=== PATIENT | male | born 1955 ===

== ENCOUNTER 2018-05-23 20:10 | Inpatient (IN) | payer MEDICARE, OTHER ==
[2018-05-23 20:10] VITALS: BMI 23.4
[2018-05-23 20:55] LABS: BASO % 0.8 % (0.0-2.0); EOS # 0.3 K/uL (0.0-0.7); HEMOGLOBIN 11.9 g/dL (12.0-18.0); LYMPH # 1.1 K/uL (1.0-4.3); LYMPH % 18.3 % (20.0-40.0); MEAN CELL VOLUME 87.1 fl (80.0-94.0); MEAN CORPUSCULAR HEMOGLOBIN 27.9 pg (27.0-31.0); MEAN CORPUSCULAR HGB CONC 32.1 g/dL (33.0-37.0); MEAN PLATELET VOLUME 8.3 fl (7.2-11.7); MONO # 0.5 K/uL (0.0-0.8); MONO % 8.2 % (0.0-10.0); NEUT # 4.3 K/uL (1.8-7.0); NEUT % 68.7 % (50.0-75.0); RBC 4.27 Mil/uL (4.40-5.90); RED CELL DISTRIBUTION WIDTH 17.3 % (11.5-14.5); WHITE BLOOD COUNT 6.3 K/uL (4.8-10.8)
[2018-05-23 20:59] LABS: ALB/GLOB RATIO 1.2 (1.0-2.1); ALBUMIN 4.5 g/dL (3.5-5.0)
[2018-05-23] MEDS ORDERED: levETIRAcetam 1,000 MG in Sodium Chloride 0.9% 100 ML IVPB ONE (20:59)
[2018-05-23 21:01] LABS: INR 1.2 (0.9-1.2); PARTIAL THROMBOPLASTIN TIME 28.4 Seconds (25.6-37.1); PROTHROMBIN TIME 13.5 Seconds (9.8-13.1)
--- NOTE | 2018-05-23 21:02 | ED PDOC ---
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 Baseline is semi-conversant, mostly bedbound, hx prior CVA, ESRD last received HD yesterday. History limited as patient currently unresponsive. Code stroke activated given history from daughter. NIHSS Stroke Scale - Date/Time Evaluation Performed Date Performed: 05/23/18 Time Performed: 20:20 When Was NIHSS Performed: Baseline - How Severe is the Stroke Level of Consciousness: 3=Unresponsive LOC to Questions: 2=Neither correct LOC to commands: 2=Neither correct Best Gaze: 1=Partial gaze palsy Visual: 3=Bilateral Facial: 2=Partial (lower face paralysis) Motor Arm - Left: 4=No movement Motor Arm - Right: 4=No movement Motor Leg - Left: 4=No movement Motor Leg - Right: 4=No movement Limb Ataxia: 2=Present both Sensory: 2=Severe to total loss Best Language: 3=Mute Dysarthia: 2=Severe, near unintelligible or worse Extinction & Inattention (Neglect): 2=Profound neglect(does not recognize own hand or orients to one side) Score: 40 NIHSS Stroke Scale 2 - Date/Time Evaluation Performed Date Performed: 05/23/18 Time Performed: 21:00 When Was NIHSS Performed: Re-evaluation - How Severe is the Stroke Level of Consciousness: 0=Alert LOC to Questions: 0=Both comments correct LOC to commands: 1=Obeys one correctly Best Gaze: 1=Partial gaze palsy Visual: 1=Partial hemianopia Facial: 2=Partial (lower face paralysis) Motor Arm - Left: 1=Drift noted before 10 sec Motor Arm - Right: 1=Drift noted before 10 sec Motor Leg - Left: 1=Drift before 5 sec Motor Leg - Right: 1=Drift before 5 sec Limb Ataxia: 2=Present both Sensory: 1=Mild to moderate loss Best Language: 1=Mild to moderate aphasia Dysarthia: 1=Mild to moderate slurring Extinction & Inattention (Neglect): 1=Partial neglect (mild christi-attention) Score: 15 rTPA Inclusion/Exclusion - Refusal of Treatment Patient Refused Treatment: No - Inclusion Criteria for Altepase Patient is 18 years or Older: Yes The Clinical Diagnosis of Ischemic Stroke That is Causing a Potentially Disabling Neurological Deficit: Yes Time of Onset is Well Established to be Less Than 270 Minute Before Treatment Would Begin: Yes Risk/Benefit Discussed With Patient/Family Member Present: No - Warning to TPA With Conditions Condition: Rapid Improvement Past Medical History Reviewed: Historical Data, Nursing Documentation, Vital Signs Vital Signs: Last Vital Signs Temp 98 F 05/23/18 20:51 Pulse 102 H 05/23/18 20:51 Resp 19 05/23/18 20:51 BP 153/91 H 05/23/18 20:51 Pulse Ox 97 05/23/18 20:51 - Medical History PMH: Atrial Fibrillation, Cardia Arrhythmia, CVA, Diabetes, Fractures, HTN, Hypercholesterolemia, End Stage Renal Disease (Dialysis TUES,THURS,SAT), Chronic Kidney Disease - Surgical History Surgical History: Hernia Repair, Pacemaker - Family History Family History: States: Unknown Family Hx - Living Arrangements Living Arrangements: With Family - Social History Current smoker - smoking cessation education provided: No - Immunization History Hx Tetanus Toxoid Vaccination: No Hx Influenza Vaccination: Yes Hx Pneumococcal Vaccination: Yes - Home Medications Home Medications: Ambulatory Orders Medication Instructions Recorded Clopidogrel [Plavix] 75 mg DAILY 08/04/13 Hydroxyzine HCl 1 tab PO DAILY 03/05/17 Insulin Detemir [Levemir] 6 unit SC QAM 03/05/17 Lubiprostone [Amitiza] 1 cap PO BID 03/05/17 Metoprolol Tartrate [Lopressor] 1 tab PO BID 03/05/17 hydrALAZINE [Apresoline] 10 mg PO BID 03/05/17 Cyclobenzaprine [Flexeril] 10 mg PO DAILY 02/04/18 Insulin Detemir [Levemir] 6 unit SC QPM 02/04/18 Sevelamer Carbonate [Renvela] 800 mg PO TID 02/04/18 amLODIPine [Norvasc] 10 mg PO DAILY 02/04/18 - Allergies Allergies/Adverse Reactions: Allergies Allergy/AdvReac Type Severity Reaction Status Date / Time No Known Allergies Allergy Verified 02/04/18 03:44 Review of Systems Review Of Systems: ROS cannot be obtained secondary to pt's inabilty to answer questions. Physical Exam - Reviewed Nursing Documentation Reviewed: Yes Vital Signs Reviewed: Yes - Physical Exam Appears: Positive for: Uncomfortable (unresponsive but maintaining airway) Head Exam: Positive for: ATRAUMATIC, NORMAL INSPECTION, NORMOCEPHALIC Skin: Positive for: Normal Color, Warm, DRY Eye Exam: Positive for: EOMI, Normal appearance, PERRL ENT: Positive for: Normal ENT Inspection Neck: Positive for: Normal, Painless ROM Cardiovascular/Chest: Positive for: Regular Rate, Rhythm Respiratory: Positive for: Normal Breath Sounds. Negative for: Wheezing, Respiratory Distress Pulses-Radial (L): 3+/4+ Pulses-Radial (R): 3+/4+ Gastrointestinal/Abdominal: Positive for: Soft. Negative for: Tenderness Back: Positive for: Normal Inspection Extremity: Positive for: Normal ROM. Negative for: Deformity, Swelling Neurologic/Psych: Positive for: Other (initially unresponsive to pain b/l but with b/l hypertonicity and ?faint facial twitching) - Laboratory Results Result Diagrams: 05/25/18 04:30 05/25/18 04:30 - ECG ECG: Positive for: Interpreted By Nm ECG Rhythm: Positive for: Nonspecific Changes Interpretation Of ECG: paced rhythm O2 Sat by Pulse Oximetry: 97 Pulse Ox Interpretation: Normal - Radiology X-Ray: Interpreted by Nm X-Ray Interpretation: Other (b/l increased markings) Medical Decision Making Medical Decision Making: code stroke activated CT report negative for bleed Dr Marie examined via teleneurology, agrees possible seizure event on arrival CTA head/neck planned, rectal ASA, load keppra Endorse Dr Majano pending CTA and dispo labs unable to get MR given pacemaker Disposition - Clinical Impression Clinical Impression: Altered mental status - Patient ED Disposition Is Patient to be Admitted: Transfer of Care Counseled Patient/Family Regarding: Studies Performed, Diagnosis, Need For Followup - Disposition Disposition: Transfer of Care Disposition Time: 21:10 Condition: SERIOUS Patient Signed Over To: Brian Majano
[2018-05-23 21:13] LABS: TROPONIN I 0.064 ng/mL (0.00-0.120)
[2018-05-23] MEDS ORDERED: Iodixanol 320 MG/ML 100 ML BOTTLE IV ONE (21:19)
[2018-05-23] MEDS ORDERED: Sodium Chloride 0.9% 50 ML IV ONE (21:19)
[2018-05-23] MEDS: Sodium Chloride 0.9% 1,000 ML IV SCH (22:10)
--- NOTE | 2018-05-23 22:29 | CP.PCM.HP ---
History of Present Illness - History of Present Illness History of Present Illness: CC: Visual/auditory hallucinations, unresponsive HPI: This is a 62 y/o male with MHx significant for A fib, prior CVA, DM2, HTN, HLD, and ESRD on // who is brought in by his daughter who reports he has been having visual and auditory hallucinations x several days, and earlier tonight, had an episode of unresponsiveness. He was brought in to the ER and a code stroke was called, but he began to recover to baseline during the assessment. Initial NIHSS was ~15. He was assessed by tele neuro. Per daughter, patient is bedbound. Baseline mental status is some ability to converse. Patient has not had any medications changes. No recent infection/f/c/n/v. Patient has not been sleeping well however, per daughter Last HD was 05/22. ROS: 14 systems reviewed, negative other than HPI MHx: fib, prior CVA, DM2, HTN, HLD, and ESRD on // SHx: Hernia repair, pacemaker, Allergies: NKDA Medications: Per med rec Family Hx: No relevant findings Social Hx: Lives with family, no tobacco, no EtOH Surrogate: Anat, daughter, info in chart. Present on Admission - Present on Admission Any Indicators Present on Admission: No Past Patient History - Infectious Disease Hx of Infectious Diseases: None - Tetanus Immunizations Tetanus Immunization: Unknown - Past Medical History & Family History Past Medical History?: Yes - Past Social History Smoking Status: Never Smoked - CARDIAC Hx Atrial Fibrillation: Yes Hx Cardia Arrhythmia: Yes Hx Hypercholesterolemia: Yes Hx Hypertension: Yes Hx Pacemaker: Yes - PULMONARY Hx Respiratory Disorders: No - NEUROLOGICAL Hx Neurological Disorder: Yes HX Cerebrovascular Accident: Yes - HEENT Hx HEENT Problems: Yes Hx Cataracts: Yes - RENAL Hx Chronic Kidney Disease: Yes - ENDOCRINE/METABOLIC Hx Endocrine Disorders: Yes Hx Diabetes Mellitus Type 2: Yes - HEMATOLOGICAL/ONCOLOGICAL Hx Blood Disorders: Yes Hx Blood Transfusions: Yes - INTEGUMENTARY Hx Dermatological Problems: No - MUSCULOSKELETAL/RHEUMATOLOGICAL Hx Fractures: Yes - GASTROINTESTINAL Hx Gastrointestinal Disorders: Yes Hx Constipation: Yes Other/Comment: history of PEG tube; no longer in - GENITOURINARY/GYNECOLOGICAL Hx Genitourinary Disorders: Yes Other/Comment: oliguria d/t dialysis - PSYCHIATRIC Hx Psychophysiologic Disorder: No Hx Substance Use: No - SURGICAL HISTORY Hx Surgeries: Yes Hx Herniorrhaphy: Yes (bilateral inguina hernia) Hx Orthopedic Surgery: Yes (right humerus fx post fall) Other/Comment: hx of pacemaker and PEG - ANESTHESIA Hx Anesthesia: Yes Hx Anesthesia Reactions: No Hx Malignant Hyperthermia: No Meds Allergies/Adverse Reactions: Allergies Allergy/AdvReac Type Severity Reaction Status Date / Time No Known Allergies Allergy Verified 02/04/18 03:44 Physical Exam - Constitutional Appears: No Acute Distress - Head Exam Head Exam: ATRAUMATIC, NORMOCEPHALIC - Eye Exam Eye Exam: EOMI, PERRL - ENT Exam ENT Exam: Mucous Membranes Moist - Neck Exam Neck exam: Positive for: Full Rom - Respiratory Exam Respiratory Exam: Clear to Auscultation Bilateral, NORMAL BREATHING PATTERN - Cardiovascular Exam Cardiovascular Exam: REGULAR RHYTHM, +S1, +S2 - GI/Abdominal Exam GI & Abdominal Exam: Normal Bowel Sounds, Soft - Extremities Exam Extremities exam: Positive for: full ROM, normal inspection - Neurological Exam Neurological exam: Alert, CN II-XII Intact, Oriented x3 - Psychiatric Exam Psychiatric exam: Normal Affect, Normal Mood Results - Vital Signs Recent Vital Signs: Last Vital Signs Temp 98 F 05/23/18 20:51 Pulse 102 H 05/23/18 20:51 Resp 19 05/23/18 20:51 BP 153/91 H 05/23/18 20:51 Pulse Ox 97 05/23/18 21:25 - Labs Result Diagrams: 05/23/18 20:41 05/23/18 20:41 Labs: Laboratory Results - last 24 hr 05/23/18 05/23/18 05/23/18 20:41 20:41 20:41 WBC 6.3 RBC 4.27 L Hgb 11.9 L Hct 37.2 MCV 87.1 MCH 27.9 MCHC 32.1 L RDW 17.3 H Plt Count 291 MPV 8.3 Neut % (Auto) 68.7 Lymph % (Auto) 18.3 L [place] % (Auto) 8.2 Eos % (Auto) 4.0 Baso % (Auto) 0.8 Neut # (Auto) 4.3 Lymph # (Auto) 1.1 [place] # (Auto) 0.5 Eos # (Auto) 0.3 Baso # (Auto) 0.0 PT 13.5 H INR 1.2 APTT 28.4 Sodium 144 Potassium 5.3 H Chloride 95 L Carbon Dioxide 33 H Anion Gap 21 H BUN 31 H Creatinine 5.8 H Est GFR ( Amer) 12 Est GFR (Non-Af Amer) 10 Random Glucose 208 H Calcium 10.0 Total Bilirubin 0.8 AST 23 ALT 16 L Alkaline Phosphatase 118 Troponin I 0.0640 Total Protein 8.1 Albumin 4.5 Globulin 3.6 Albumin/Globulin Ratio 1.2 Triglycerides 169 H Cholesterol 147 LDL Cholesterol Direct 57 HDL Cholesterol 30 Blood Type Antibody Screen BBK History Checked 05/23/18 20:42 WBC RBC Hgb Hct MCV MCH MCHC RDW Plt Count MPV Neut % (Auto) Lymph % (Auto) [place] % (Auto) Eos % (Auto) Baso % (Auto) Neut # (Auto) Lymph # (Auto) [place] # (Auto) Eos # (Auto) Baso # (Auto) PT INR APTT Sodium Potassium Chloride Carbon Dioxide Anion Gap BUN Creatinine Est GFR ( Amer) Est GFR (Non-Af Amer) Random Glucose Calcium Total Bilirubin AST ALT Alkaline Phosphatase Troponin I Total Protein Albumin Globulin Albumin/Globulin Ratio Triglycerides Cholesterol LDL Cholesterol Direct HDL Cholesterol Blood Type A POSITIVE Antibody Screen Negative BBK History Checked Patient has bt - EKG Data EKG Interpreted by: Myself - EKG Data EKG comments: ?paced rhythm, wide QRS - Imaging and Cardiology CT scan - head Status: Image reviewed by me (No acute findings) Assessment & Plan (1) TIA (transient ischemic attack) Assessment and Plan: 62 y/o male with a fib, prior CVA, DM2, HTN, HLD, and ESRD on // who comes in with hallucinations and mental status changes. 1) MS change -- r/o TIA/CVA vs seizure vs other cause -Telemetry -Serial trops -Echo -Carotid dopplers -EEG -MRI only if possible, family states patient has a pacemaker -ASA 300 MS for tonight; ASA PO from tmrw along with Plavix which he is on -Keppra 1000 loading dose today, then 500 mg PO BID from tmrw as long as taking PO -NPO, IVF -Permissive HTN -Neuro consult (Cynthia) -PT/OT consult 2) HTN -Will only keep on the metoprolol for now to control rate, will hold other BP meds overnight 3) DM2 -NPO, so hold LA insulin o/n -SSI and accuchecks 4) A fib -Metoprolol as above 5) ESRD on HD -BMP in AM -Renal consult if he stays to Thursday 6) DVT PPx -SQ heparin Status: Acute (2) Seizure Status: Acute (3) DM2 (diabetes mellitus, type 2) Status: Acute (4) HTN (hypertension) Status: Acute (5) A-fib Status: Acute (6) ESRD (end stage renal disease) on dialysis Status: Acute (7) DVT prophylaxis Status: Acute (8) Altered mental status Status: Acute
--- NOTE | 2018-05-23 22:40 | CP.PCM.CON ---
History of Present Illness - History of Present Illness History of Present Illness: Tele-Stroke Consultation Note: This is a tele-medicine visit being conducted through bidirectional audio/video conference with [employer] Video In: 8:55 PM Video Out: 9:02 PM Mr. Joe is a 62-year-old man who was brought in by family to the ED after having visual and auditory hallucinations for several days, and tonight he became unresponsive suddenly with about 30 mins prior to arrival. At first, he was not responsive to painful stimulous and was rigid, he then became more responsive and was alert and following commands. At baseline he is semi- conversant, mostly bedbound, due to prior ischemic stroke. He has a past medical history of CVA, ESRD (last received HD yesterday). History was provided by family, but was limited. CT of the head showed bilateral chronic basal ganglia infarcts. CTA was consistent with moderate to sever left ICA and vertebral artery stenosis. Shortly after he had imaging performed, the patient was more responsive. Moving all extremities and following simple commands. There was some concern for seizure activity. I spoke with Dr. Bernardo and we discussed starting Keppra 1000 mg IV loading dose. I also recommended permissive HTN and [place] aspirin. Review of Systems - Review of Systems All systems: reviewed and no additional remarkable complaints except Past Patient History - Infectious Disease Hx of Infectious Diseases: None - Tetanus Immunizations Tetanus Immunization: Unknown - Past Medical History & Family History Past Medical History?: Yes - Past Social History Smoking Status: Never Smoked - CARDIAC Hx Atrial Fibrillation: Yes Hx Cardia Arrhythmia: Yes Hx Hypercholesterolemia: Yes Hx Hypertension: Yes Hx Pacemaker: Yes - PULMONARY Hx Respiratory Disorders: No - NEUROLOGICAL Hx Neurological Disorder: Yes HX Cerebrovascular Accident: Yes - HEENT Hx HEENT Problems: Yes Hx Cataracts: Yes - RENAL Hx Chronic Kidney Disease: Yes - ENDOCRINE/METABOLIC Hx Endocrine Disorders: Yes Hx Diabetes Mellitus Type 2: Yes - HEMATOLOGICAL/ONCOLOGICAL Hx Blood Disorders: Yes Hx Blood Transfusions: Yes - INTEGUMENTARY Hx Dermatological Problems: No - MUSCULOSKELETAL/RHEUMATOLOGICAL Hx Fractures: Yes - GASTROINTESTINAL Hx Gastrointestinal Disorders: Yes Hx Constipation: Yes Other/Comment: history of PEG tube; no longer in - GENITOURINARY/GYNECOLOGICAL Hx Genitourinary Disorders: Yes Other/Comment: oliguria d/t dialysis - PSYCHIATRIC Hx Psychophysiologic Disorder: No Hx Substance Use: No - SURGICAL HISTORY Hx Surgeries: Yes Hx Herniorrhaphy: Yes (bilateral inguina hernia) Hx Orthopedic Surgery: Yes (right humerus fx post fall) Other/Comment: hx of pacemaker and PEG - ANESTHESIA Hx Anesthesia: Yes Hx Anesthesia Reactions: No Hx Malignant Hyperthermia: No Meds Allergies/Adverse Reactions: Allergies Allergy/AdvReac Type Severity Reaction Status Date / Time No Known Allergies Allergy Verified 02/04/18 03:44 - Medications Medications: Current Medications Sodium Chloride (Sodium Chloride 0.9%) 1,000 mls @ 100 mls/hr IV .Q10H AMARJIT Last Admin: 05/23/18 22:10 Dose: 100 mls/hr Physical Exam - Neurological Exam Additional comments: Alert, awake, follows simple commands, slurred speech. Moves all extremities with weakness that is diffuse with about 3-4/5 strength. Reflexes not assessed. Sensation appears intact. Gait not assessed. NIHSS= 4 for dysarthria , pronator drift on the right side. Results - Vital Signs Recent Vital Signs: Last Vital Signs Temp 98 F 05/23/18 20:51 Pulse 102 H 05/23/18 20:51 Resp 19 05/23/18 20:51 BP 153/91 H 05/23/18 20:51 Pulse Ox 97 05/23/18 21:25 - Labs Result Diagrams: 05/23/18 20:41 05/23/18 20:41 Labs: Laboratory Results - last 24 hr 05/23/18 05/23/18 05/23/18 20:41 20:41 20:41 WBC 6.3 RBC 4.27 L Hgb 11.9 L Hct 37.2 MCV 87.1 MCH 27.9 MCHC 32.1 L RDW 17.3 H Plt Count 291 MPV 8.3 Neut % (Auto) 68.7 Lymph % (Auto) 18.3 L [place] % (Auto) 8.2 Eos % (Auto) 4.0 Baso % (Auto) 0.8 Neut # (Auto) 4.3 Lymph # (Auto) 1.1 [place] # (Auto) 0.5 Eos # (Auto) 0.3 Baso # (Auto) 0.0 PT 13.5 H INR 1.2 APTT 28.4 Sodium 144 Potassium 5.3 H Chloride 95 L Carbon Dioxide 33 H Anion Gap 21 H BUN 31 H Creatinine 5.8 H Est GFR ( Amer) 12 Est GFR (Non-Af Amer) 10 Random Glucose 208 H Calcium 10.0 Total Bilirubin 0.8 AST 23 ALT 16 L Alkaline Phosphatase 118 Troponin I 0.0640 Total Protein 8.1 Albumin 4.5 Globulin 3.6 Albumin/Globulin Ratio 1.2 Triglycerides 169 H Cholesterol 147 LDL Cholesterol Direct 57 HDL Cholesterol 30 Blood Type Antibody Screen BBK History Checked 05/23/18 20:42 WBC RBC Hgb Hct MCV MCH MCHC RDW Plt Count MPV Neut % (Auto) Lymph % (Auto) [place] % (Auto) Eos % (Auto) Baso % (Auto) Neut # (Auto) Lymph # (Auto) [place] # (Auto) Eos # (Auto) Baso # (Auto) PT INR APTT Sodium Potassium Chloride Carbon Dioxide Anion Gap BUN Creatinine Est GFR ( Amer) Est GFR (Non-Af Amer) Random Glucose Calcium Total Bilirubin AST ALT Alkaline Phosphatase Troponin I Total Protein Albumin Globulin Albumin/Globulin Ratio Triglycerides Cholesterol LDL Cholesterol Direct HDL Cholesterol Blood Type A POSITIVE Antibody Screen Negative BBK History Checked Patient has bt Assessment & Plan (1) Altered mental status Assessment and Plan: Likely due to tonic/generalized seizure and possible global ischemia. I recommend the followin. Telemetry 2. MRI brain without contrast 3. Carotid doppler ultrasound bilaterally 4. Echocardiogram 5. EEG for 1 hour 6. Aspirin 300 mg [place] 7. Fluids with NS at 100 mL/hr 8. PT/OT eval 9. DVT Px 10. Case management consult 11. Keppra 500 mg BID after 1000 mg loading dose 12. Permissive HTN: only treat BP higher than 220/110 mm Hg for the next 24-36 hours Thank you. Neurology will follow. Status: Acute
[2018-05-23] MEDS ORDERED: Sodium Chloride 0.9% 1,000 ML IV SCH (23:30)
--- NOTE | 2018-05-24 00:36 | ED PDOC ---
- Laboratory Results Result Diagrams: 05/23/18 20:41 05/23/18 20:41 - ECG O2 Sat by Pulse Oximetry: 96 (RA) Pulse Ox Interpretation: Normal Medical Decision Making Medical Decision Making: Time: 2099 -- Patient endorsed to me by Dr. Bernardo, pending CTA head and neck. Time: 2209 CTA HEAD/NECK RESULTS FINDINGS: Right internal carotid artery: Calcifications right internal carotid artery at the cavernous sinus with approximately 40-50% stenosis. No aneurysm. Right anterior cerebral artery: Intact. No occlusion or significant stenosis. No aneurysm. Right middle cerebral artery: Intact. No occlusion or significant stenosis. No aneurysm. Right posterior cerebral artery: Intact. No occlusion or significant stenosis. No aneurysm. Right vertebral artery: Unremarkable as visualized. Left internal carotid artery: Calcifications causing approximately 75-80% stenosis left internal carotid artery supraclinoid segment. No aneurysm. Left anterior cerebral artery: Intact. No occlusion or significant stenosis. No aneurysm. Left middle cerebral artery: Intact. No occlusion or significant stenosis. No aneurysm. Left posterior cerebral artery: Intact. No occlusion or significant stenosis. No aneurysm. Left vertebral artery: Heavy calcifications left vertebral artery causing approximately 70-80% stenosis. Basilar artery: Intact. No occlusion or significant stenosis. No aneurysm. IMPRESSION: 1. Calcifications causing approximately 75-80% stenosis left internal carotid artery supraclinoid segment. 2. Heavy focal segmental calcification intracranial left vertebral artery causing approximately 70-80% stenosis. 3. No stenosis or aneurysm in the [place]. Basilar artery intact. EXAM: CT Angiography Neck With Intravenous Contrast CLINICAL HISTORY: 62 years old, male; Signs and symptoms; Other: AMS TECHNIQUE: Axial computed tomographic angiography images of the neck with intravenous contrast using CT angiography protocol. All CT scans at this facility use at least one of these dose optimization techniques: automated exposure control; mA and/or kV adjustment per patient size (includes targeted exams where dose is matched to clinical indication); or iterative reconstruction. MIP reconstructed images were created and reviewed. Coronal and sagittal reformatted images were created and reviewed. COMPARISON: CT - HEAD W/O (CODE STROKE) 2018-05-23 20:26 FINDINGS: VASCULATURE: Right common carotid artery: Intact. No significant stenosis. No dissection or occlusion. Right internal carotid artery: Calcifications at the origin and proximal right internal carotid artery without significant stenosis. No dissection or occlusion. Right external carotid artery: Origin and the opacified proximal portion appear intact. No occlusion. Right vertebral artery: Small calcification at the origin of the right vertebral artery without significant stenosis. No dissection or occlusion. Left common carotid artery: Intact. No significant stenosis. No dissection or occlusion. Left internal carotid artery: Intact. Extracranial segment is patent with no significant stenosis. No dissection or occlusion. Left external carotid artery: Origin and the opacified proximal portion appear intact. No occlusion. Left vertebral artery: Intact. No significant stenosis. No dissection or occlusion. Other vasculature: Subclavian vein stent patent. NECK: Bones/joints: No acute fracture. No dislocation. Soft tissues: No radiopaque foreign body. CAROTID STENOSIS REFERENCE USING NASCET CRITERIA: % ICA stenosis = (1 - narrowest ICA diameter/diameter of distal cervical ICA) x 100. Mild - <50% stenosis. Moderate - 50-69% stenosis. Severe - 70-94% stenosis. Near occlusion - 95-99% stenosis. Occluded - 100% stenosis. IMPRESSION: No significant stenosis bilateral neck carotid arteries. Thank you for allowing us to participate in the care of your patient. Dictated and Authenticated by: Og Godwin MD 05/23/2018 10:10 PM Eastern Time ([place] & [place]) CAse was discussed with Dr. Marie and Dr. Jesus. Patient is more alert, more awake. Scribe Attestation: Documented by Pascual Galvin acting as a scribe for Dr. Brian Majano MD. Provider Scribe Attestation: All medical record entries made by the Scribe were at my direction and personally dictated by me. I have reviewed the chart and agree that the record accurately reflects my personal performance of the history, physical exam, medical decision making, and the department course for this patient. I have also personally directed, reviewed, and agree with the discharge instructions and disposition. Disposition - Clinical Impression Clinical Impression: Altered mental status - POA Present On Arrival: None - Disposition Disposition: Admitted as In-Patient Disposition Time: 21:59 Condition: SERIOUS
[2018-05-24] MEDS: Insulin Lispro (humaLOG) 100 Units/ml Inj SC SCH ×5 (01:29→22:31)
[2018-05-24 05:37] LABS: MEAN CELL VOLUME 87.4 fl (80.0-94.0); RBC 3.91 Mil/uL (4.40-5.90); RED CELL DISTRIBUTION WIDTH 17.1 % (11.5-14.5); WHITE BLOOD COUNT 5.1 K/uL (4.8-10.8)
[2018-05-24 05:49] LABS: CALCIUM 9.4 mg/dL (8.4-10.2)
--- NOTE | 2018-05-24 08:05 | RAD ---
Date of service: 05/23/2018 HISTORY: Code Stroke COMPARISON: No prior available. FINDINGS: LUNGS: Inspiratory volume appears low. Limited linear atelectasis in the right base. No alveolitis bilaterally. PLEURA: No significant pleural effusion identified, no pneumothorax apparent. CARDIOVASCULAR: Bipolar permanent cardiac pacemaker identified placed with the generator the left pectoralis region and 2 leads identified extending into the region of the heart. Cardiac size is magnified technically cardiomegaly likely now present. No pulmonary vascular congestion pattern. Wall stent is seen at the left subclavian region. OSSEOUS STRUCTURES: No significant abnormalities. VISUALIZED UPPER ABDOMEN: Normal. OTHER FINDINGS: None. IMPRESSION: Low inspiratory volume. Linear atelectasis right base. No definite infiltrate bilaterally. Permanent cardiac pain pacemaker identified in situ. No pulmonary vascular congestion.
--- NOTE | 2018-05-24 11:23 | CT ---
Date of service: 05/23/2018 PROCEDURE: CT HEAD WITHOUT CONTRAST. HISTORY: code stroke COMPARISON: None available. TECHNIQUE: Axial computed tomography images were obtained through the head/brain without intravenous contrast. Radiation dose: Total exam DLP = 962.06 mGy-cm. This CT exam was performed using one or more of the following dose reduction techniques: Automated exposure control, adjustment of the mA and/or kV according to patient size, and/or use of iterative reconstruction technique. FINDINGS: HEMORRHAGE: No intracranial hemorrhage. BRAIN: The mcneal-white matter differentiation is well preserved. There is no mass effect or definitive edema pattern appreciated including the cortex. There is proportional expansion of the ventriculosulcal and cisternal spaces however in a pattern most compatible with diffuse cerebral atrophy. In addition, is difficult to differentiate between small bilateral basal ganglia dilated perivascular spaces versus chronic lacunes. No suspicious extra-axial fluid collection is identified in the midline brain anatomy appears grossly nonfocal as imaged. VENTRICLES: Unremarkable. No hydrocephalus. CALVARIUM: Unremarkable. PARANASAL SINUSES: Unremarkable as visualized. No significant inflammatory changes. MASTOID AIR CELLS: Unremarkable as visualized. No inflammatory changes. OTHER FINDINGS: None. IMPRESSION: No definite acute intracranial findings by standard CT criteria. Age related neuro degenerative findings appear age-appropriate and bilateral dilated perivascular spaces or chronic lacunes are seen in the bilateral basal ganglia. Concordant preliminary report from [facility], 05/23/2018.
--- NOTE | 2018-05-24 11:54 | CP.PCM.PN ---
Subjective - Date & Time of Evaluation Date of Evaluation: 05/24/18 Time of Evaluation: 11:52 - Subjective Subjective: Mr. Joe was seen and examined at the bedside. He is very sleepy, responsive to tactile stimuli, moves all extremities. He was given ativan prior to few diagnostic test this am due to his restlessness. He was able to follow two simple commands such as opening his mouth and raising his extremities. There was no untoward events overnight. Objective - Vital Signs/Intake and Output Vital Signs (last 24 hours): Temp Pulse Resp BP Pulse Ox 98.6 F 60 20 129/61 96 05/24/18 08:40 05/24/18 08:40 05/24/18 08:40 05/24/18 08:40 05/24/18 08:40 - Medications Medications: Current Medications Acetaminophen (Tylenol 650 Mg Supp) 650 mg NC Q6 PRN PRN Reason: Fever >100.4 F Aspirin (Ecotrin) 81 mg PO DAILY [facility] Aspirin (Aspirin Supp) 300 mg NC DAILY [facility] Clopidogrel Bisulfate (Plavix) 75 mg PO DAILY [facility] Heparin Sodium (Porcine) (Heparin) 5,000 units SC Q8 AMARJIT PRN Reason: Protocol Last Admin: 05/24/18 11:08 Dose: 5,000 units Sodium Chloride (Sodium Chloride 0.9%) 1,000 mls @ 100 mls/hr IV .Q10H [facility] Last Admin: 05/23/18 22:10 Dose: 100 mls/hr Levetiracetam 500 mg/ Sodium (Chloride) 105 mls @ 210 mls/hr IVPB Q12 [facility] Insulin Human Lispro (Humalog) 0 units SC Q6H AMARJIT PRN Reason: Protocol Last Admin: 05/24/18 06:27 Dose: Not Given Metoprolol Tartrate (Lopressor) 25 mg PO BID [facility] - Labs Labs: 05/24/18 05:26 05/24/18 05:26 PT 13.5 Seconds (9.8-13.1) H 05/23/18 20:41 INR 1.2 (0.9-1.2) 05/23/18 20:41 APTT 28.4 Seconds (25.6-37.1) 05/23/18 20:41 - Constitutional Appears: No Acute Distress - Head Exam Head Exam: NORMAL INSPECTION - Eye Exam Pupil Exam: PERRL - Neurological Exam Neuro motor strength exam: Left Upper Extremity: 4, Right Upper Extremity: 3, Left Lower Extremity: 4, Right Lower Extremity: 3 Additional comments: sleepy, follows some commands, moves all extremities. Assessment and Plan (1) Altered mental status Assessment & Plan: Continue all medical, physical, occupational, and speech therapies. Pending echocardiogram and carotid doppler. Recommend blood pressure control, hydration. Status: Acute
--- NOTE | 2018-05-24 12:29 | CT ---
Date of service: 05/23/2018 PROCEDURE: CT Angiography of the Brain and Neck. HISTORY: AMS COMPARISON: None available. TECHNIQUE: CT angiography of the intracranial and neck arteries was performed. Coronal and sagittal maximum intensity projection reformatted images were generated. Contrast Dose: Visipaque 320, 95 cc Radiation dose:Total exam DLP = 2270.48 mGy-cm. This CT exam was performed using one or more of the following dose reduction techniques: Automated exposure control, adjustment of the mA and/or kV according to patient size, and/or use of iterative reconstruction technique. FINDINGS: INTERNAL CEREBRAL ARTERIES: Mild to atherosclerotic changes seen related to the right supraclinoid internal carotid artery segment. At the left side however, the cavernous segment is markedly atherosclerotic including a 75-85 percent apparent stenosis at the supraclinoid left ICA segment. The skull base, petrous, and cavernous segments are bilaterally widely patent. ANTERIOR CEREBRAL ARTERIES: There is a hypoplastic but patent left A1 CARO segment with the right A1 segment widely patent as well as the anterior communicating artery. The bilateral posterior committee arteries appear hypoplastic. The bilateral A2 segments are widely patent. Smaller distal branches unremarkable, as visualized. MIDDLE CEREBRAL ARTERIES: Unremarkable. M1 and M2 segments are widely patent. Perisylvian branches grossly symmetric. POSTERIOR CIRCULATION: Basilar Artery: Unremarkable. Distal Vertebral Arteries: Moderate distal left vertebral artery stenosis identified on the order of less than 60 percent. Minimally atherosclerotic but patent right distal vertebral artery. Posterior Cerebral Arteries: Unremarkable. Posterior Inferior Cerebellar Arteries: Unremarkable. NECK CTA: Common Carotid arteries: The bilateral common carotid appear widely patent from their origins to their bifurcations with no significant stenosis appreciated. No evidence to suggest common carotid artery dissection. Mild carotid bulbar atherosclerotic plaque identified. Internal Carotid arteries: No significant stenosis is appreciated throughout the cervical internal carotid artery segments bilaterally and there is no evidence of dissection either. External Carotid arteries: Appear unremarkable bilaterally. Vertebral arteries: The bilateral vertebral arteries appear normal in caliber from their origins to their junction with the basilar artery. No significant stenosis or definite pattern of dissection. ANEURYSM/ VASCULAR MALFORMATIONS: None. OTHER FINDINGS: None. IMPRESSION: 1. High-grade stenosis supraclinoid left ICA with limited atherosclerosis identified the bilateral half cavernous ICA segments. Widely patent anterior communicating artery. Hypoplastic left A1 and bilateral posterior communicating arteries. 2. Mildly atherosclerotic bilateral carotid bulbs with the bilateral common and internal carotid arteries nevertheless widely patent. 3. Moderate distal left vertebral artery stenosis. Concordant preliminary report from [facility], 05/23/2018.
[2018-05-24] MEDS: levETIRAcetam 500 MG in Sodium Chloride 0.9% 100 ML IVPB SCH ×2 (12:57→21:46)
--- NOTE | 2018-05-24 14:00 | US ---
Date of service: 05/24/2018 PROCEDURE: Duplex ultrasound of the carotid and vertebral arteries. HISTORY: tia COMPARISON: None available. TECHNIQUE: Grayscale and duplex Doppler evaluation of the cervical carotid and vertebral arteries were performed. The common carotid, carotid bifurcations and cervical ICA and proximal ECA were evaluated. The vertebral arteries were evaluated for gross patency and direction. FINDINGS: RIGHT CAROTID ARTERIES: Common Carotid Artery: Normal. Maximal flow velocity of 72.4 cm/s. Carotid Bifurcation: Heterogeneous plaque formation. Internal Carotid Artery:Heterogeneous plaque formation. Maximal flow velocity of 65.8 cm/s. External Carotid Artery (proximal branches): Normal. Maximal flow velocity of 158.6 cm/s. ICA/CCA Ratio: 0.9 LEFT CAROTID ARTERIES: Common Carotid Artery: Intimal thickening is present Maximal flow velocity of 98.2 cm/s. Carotid Bifurcation: Heterogeneous plaque formation. Internal Carotid Artery:Heterogeneous plaque formation. Maximal flow velocity of 76.2 cm/s. External Carotid Artery (proximal branches): Normal. Maximal flow velocity of 101.6 cm/s. ICA/CCA Ratio: 0.8 VERTEBRAL ARTERIES: Right Vertebral Artery: Patent. Antegrade flow. Left Vertebral Artery: Patent. Antegrade flow. OTHER FINDINGS: None. IMPRESSION: Right ICA degree of stenosis: Less than 50% Left ICA degree of stenosis: Less than 50% Reference Internal Carotid Artery (ICA) Peak Systolic Velocity (PSV) for above: 1. Less than 50% stenosis less than 125 cm/s peak systolic velocity 2. 50-69% stenosis 125-230cm/s peak systolic velocity 3. Greater than 70% but less than near occlusion greater than 230 cm/s peak systolic velocity
--- NOTE | 2018-05-24 14:06 | CP.PCM.PN ---
Subjective - Date & Time of Evaluation Date of Evaluation: 05/24/18 Time of Evaluation: 13:00 - Subjective Subjective: No fever Pt is lethargic but arousable- opens eyes to verbal stimuli VS stable Family at bedside- discussed test results , treatment plan Surrogate Decision maker is spouse , Full Code Objective - Vital Signs/Intake and Output Vital Signs (last 24 hours): Temp Pulse Resp BP Pulse Ox 97.5 F L 85 20 119/63 95 05/24/18 13:40 05/24/18 13:40 05/24/18 13:40 05/24/18 13:40 05/24/18 13:40 - Medications Medications: Current Medications Acetaminophen (Tylenol 650 Mg Supp) 650 mg ID Q6 PRN PRN Reason: Fever >100.4 F Aspirin (Ecotrin) 81 mg PO DAILY [facility] Aspirin (Aspirin Supp) 300 mg ID DAILY [facility] Last Admin: 05/24/18 12:57 Dose: 300 mg Clopidogrel Bisulfate (Plavix) 75 mg PO DAILY [facility] Heparin Sodium (Porcine) (Heparin) 5,000 units SC Q8 AMARJIT PRN Reason: Protocol Last Admin: 05/24/18 11:08 Dose: 5,000 units Sodium Chloride (Sodium Chloride 0.9%) 1,000 mls @ 100 mls/hr IV .Q10H [facility] Last Admin: 05/23/18 22:10 Dose: 100 mls/hr Levetiracetam 500 mg/ Sodium (Chloride) 105 mls @ 210 mls/hr IVPB Q12 [facility] Last Admin: 05/24/18 12:57 Dose: 210 mls/hr Insulin Human Lispro (Humalog) 0 units SC Q6H AMARJIT PRN Reason: Protocol Last Admin: 05/24/18 12:59 Dose: Not Given Metoprolol Tartrate (Lopressor) 25 mg PO BID [facility] - Labs Labs: 05/24/18 05:26 05/24/18 05:26 PT 13.5 Seconds (9.8-13.1) H 05/23/18 20:41 INR 1.2 (0.9-1.2) 05/23/18 20:41 APTT 28.4 Seconds (25.6-37.1) 05/23/18 20:41 - Constitutional Appears: Chronically Ill, Other (lethargic) - Head Exam Head Exam: NORMAL INSPECTION, NORMOCEPHALIC - ENT Exam ENT Exam: Mucous Membranes Dry, Normal External Ear Exam - Neck Exam Neck Exam: absent: Meningismus - Respiratory Exam Respiratory Exam: Rhonchi, NORMAL BREATHING PATTERN. absent: Respiratory Distress - Cardiovascular Exam Cardiovascular Exam: REGULAR RHYTHM, +S1, +S2 - GI/Abdominal Exam GI & Abdominal Exam: Soft, Normal Bowel Sounds - Extremities Exam Extremities Exam: Normal Capillary Refill, Pedal Edema - Neurological Exam Additional comments: lethargic unable to do full Neuro exam - Skin Skin Exam: Dry, Normal Color, Warm Assessment and Plan - Assessment and Plan (Free Text) Assessment: 62 y/o male with Hx of A fib, prior CVA, DM2, HTN, HLD, Dementia and ESRD on HD T// who comes in with hallucinations and mental status changes. 1. Acute Change in mental Status ? Toxic Metabolic Encephalopathy r/o SEizure , r/o CVA -Telemetry monitoring -Serial trops : negative so far -Echo -Carotid dopplers: no stenosis -EEG - unable to -cont ASA 300 ID -Keppra 1000 loading dose , then 500 mg IV BID ( pt noted to have some twitching) -NPO, IVF -Permissive HTN -Neuro consult (Dr Marie) -PT/OT consult - CT of head , CTA of head /Neck : neg - start Statin when able to take PO 2. HTN allow permissive HTN 3) DM type II -NPO, hold Insulin -SSI and accuchecks 4) A fib , paroxysmal s/p Pacemaker Pt has Pacemaker -Metoprolol IV prn 5) ESRD on HD -Renal consult - Dr Trujillo - HD: 6. Hx of CVA cont ASA, DVT PPx -SQ heparin
[2018-05-24] MEDS ORDERED: Amiodarone 150mg/3 ml vial ONE (15:13)
[2018-05-24] MEDS ORDERED: Amiodarone 900 MG in Dextrose 5% In Water 500 ML IV SCH (15:15)
[2018-05-24 15:16] LABS: HEMOGLOBIN 10.9 g/dL (12.0-18.0); MEAN CELL VOLUME 87.2 fl (80.0-94.0); MEAN CORPUSCULAR HEMOGLOBIN 27.7 pg (27.0-31.0); MEAN CORPUSCULAR HGB CONC 31.8 g/dL (33.0-37.0); RBC 3.93 Mil/uL (4.40-5.90); RED CELL DISTRIBUTION WIDTH 17.3 % (11.5-14.5); WHITE BLOOD COUNT 6.6 K/uL (4.8-10.8)
[2018-05-24 15:21] LABS: CALCIUM 9.4 mg/dL (8.4-10.2)
[2018-05-24] MEDS ORDERED: Amiodarone 900 MG in Dextrose 5% In Water 500 ML IVPB SCH (15:26)
[2018-05-24 15:36] LABS: BASO # 0.1 K/uL (0.0-0.2); EOS # 0.2 K/uL (0.0-0.7); EOS % 3.6 % (0.0-4.0); HEMOGLOBIN 12.3 g/dL (12.0-18.0); LYMPH # 1.5 K/uL (1.0-4.3); LYMPH % 22.6 % (20.0-40.0); MEAN CELL VOLUME 86.8 fl (80.0-94.0); MEAN CORPUSCULAR HEMOGLOBIN 28.1 pg (27.0-31.0); MEAN CORPUSCULAR HGB CONC 32.4 g/dL (33.0-37.0); MEAN PLATELET VOLUME 8.6 fl (7.2-11.7); MONO # 0.5 K/uL (0.0-0.8); MONO % 7.1 % (0.0-10.0); NEUT # 4.5 K/uL (1.8-7.0); NEUT % 65.7 % (50.0-75.0); NRBC % 0.1 % (0.0-0.0); RBC 4.39 Mil/uL (4.40-5.90); RED CELL DISTRIBUTION WIDTH 17.6 % (11.5-14.5); WHITE BLOOD COUNT 6.9 K/uL (4.8-10.8)
--- NOTE | 2018-05-24 15:54 | PCM.RRT ---
<BonnieKevinNesha - Last Filed: 05/24/18 16:13> GENERAL OFFICE ASSISTANT Nurse Assessment - Situation GENERAL OFFICE ASSISTANT Responder Arrival Time: 03:00 GENERAL OFFICE ASSISTANT Reason for Call: Tachycardia (runs of Vtach) - IV IV Inserted during GENERAL OFFICE ASSISTANT?: No - Respiratory Oxygen Delivery Method: Room Air Received Nebulizer Treatments: No Was the Patient Ventilated with Bag/Mask 100% O2?: No Secretions Suctioned?: No Was the Patient Intubated?: No Was the Patient Placed on a Ventilator?: No - Medication Medications Administered During GENERAL OFFICE ASSISTANT: Bolus of Amiodarone 150 mg (loading dose) - Diagnostic Test Ordered EKG: Yes Chest X-Ray: No CT Scan: No - Stat Labs Ordered GENERAL OFFICE ASSISTANT Stat Labs Ordered: CBC, BMP, PT/PTT, TROPONIN GENERAL OFFICE ASSISTANT Other Labs Ordered: CK-MB, Magnesium, phosphorus CPR started during GENERAL OFFICE ASSISTANT?: No - Vital Signs Vital Signs: BP: 142/57 HR: 64 O2 Saturation: 100%. - Time GENERAL OFFICE ASSISTANT Ended Time GENERAL OFFICE ASSISTANT Ended: 03:40 - Vital Signs at end of GENERAL OFFICE ASSISTANT Vital Signs at end of GENERAL OFFICE ASSISTANT: BP: 147/57 HR:70 O2 sat: 100% - Recommendations GENERAL OFFICE ASSISTANT Level of Care Recommendations: Remain in current setting I.Reason for GENERAL OFFICE ASSISTANT - A) Acute Change in Patient: Subjective: 62 y/o male with Medical history significant for A fib, prior CVA, DM2, HTN, HLD , and ESRD presented originally because of auditory and visual hallucinations. GENERAL OFFICE ASSISTANT was called because of runs of Ventricular Tachycardia with a heart rate of 117 that lasted 1 min. Patient was mildly arousable and vitals upon arrival were BP: 142/57; HR: 64; O2 sa: 100%. EKG at bedside demonstrated a sinus paced rhythm. Bolus of Amiodarone 150mg was given. Patient's vitals were stable throughout the GENERAL OFFICE ASSISTANT. Runs of Vtach were noticed on the tele monitor, however when the heart monitor was changed, a paced rhythm was noted. End vital signs: BP: 147/57 HR: 70 O2 sat: 100%. Patient stable to remain on the telemetry floor. - Neurological Status Other (Please specify): mildly arousable - Respiratory Oxygen Delivery Method: Room Air - Constitutional Appears: Non-toxic, No Acute Distress Additional Comments: mildly arousable - Head Head Exam: NORMAL INSPECTION - Eyes Eye Exam: Normal appearance - Cardiovascular Exam Cardiovascular Exam: Tachycardia, +S1, +S2. absent: RRR, Murmur Additional comments: paced rhythm. - Neurological Exam Additional exam: patient is mildly arousable. Plan - Assessment of Findings&Treatment Plan Runs of Vtach: - Patient stable and once heart monitor was changed, a paced rhythm was noted on the monitor with stable vital signs. - Bolus of Amiodarone 150mg was given. - Patient continues to be stable. - Continue to monitor vital signs, - F/U labs -Monitor for acute changes. <Rachel Mckeon - Last Filed: 05/24/18 18:01> GENERAL OFFICE ASSISTANT Nurse Assessment - Vital Signs Vital Signs: Rapid Response Vital Sign Blood Pressure 142/57 Pulse Rate 62 Respiratory Rate 15 Oxygen Saturation 97 - Vital Signs at end of GENERAL OFFICE ASSISTANT Vital Signs at end of GENERAL OFFICE ASSISTANT: Rapid Response End Vital Sign Blood Pressure 147/57 Pulse Rate 60 Respiratory Rate 18 O2 Sat by Pulse Oximetry 100 Attending/Attestation - Attestation I have personally seen and examined this patient.: Yes I have fully participated in the care of the patient.: Yes I have reviewed all pertinent clinical information, including history, physical exam and plan: Yes Notes (Text): Episodes of Ventricular Tachycardia vs Wide Complex QRS in pt with Pacemaker - pt's HR is bet 60 to 80s - labs done to r/o electrolyte abn - check Trop, CKMB - discussed case with Dr Vallejo - Cardio - agreed to give Amiodaraone 150mg IV bolus , hold off on drip and he will come to see pt
[2018-05-24 16:05] LABS: ALB/GLOB RATIO 1.3 (1.0-2.1); ALBUMIN 4.5 g/dL (3.5-5.0)
[2018-05-24 16:16] LABS: CK-MB 1.27 ng/mL (0.0-3.38); TROPONIN I 0.063 ng/mL (0.00-0.120)
[2018-05-24 17:26] LABS: INR 1.1 (0.9-1.2); PROTHROMBIN TIME 12.6 Seconds (9.8-13.1)
[2018-05-24 17:44] LABS: PARTIAL THROMBOPLASTIN TIME 31.4 Seconds (25.6-37.1)
[2018-05-24] MEDS ORDERED: Dextrose 50% SYRINGE Inj (50 ml) IVP ONE (21:20)
[2018-05-25] MEDS: Sodium Chloride 0.9% 1,000 ML IV SCH (00:52)
[2018-05-25 05:09] LABS: BASO % 0.3 % (0.0-2.0); EOS # 0.1 K/uL (0.0-0.7); EOS % 0.9 % (0.0-4.0); HEMOGLOBIN 10.3 g/dL (12.0-18.0); LYMPH # 0.7 K/uL (1.0-4.3); LYMPH % 6.6 % (20.0-40.0); MEAN CELL VOLUME 87.8 fl (80.0-94.0); MEAN CORPUSCULAR HEMOGLOBIN 27.6 pg (27.0-31.0); MEAN CORPUSCULAR HGB CONC 31.5 g/dL (33.0-37.0); MEAN PLATELET VOLUME 8.6 fl (7.2-11.7); MONO # 0.5 K/uL (0.0-0.8); MONO % 4.8 % (0.0-10.0); NEUT # 8.7 K/uL (1.8-7.0); NEUT % 87.4 % (50.0-75.0); PLATELET COUNT 255 K/uL (130-400); RBC 3.72 Mil/uL (4.40-5.90); RED CELL DISTRIBUTION WIDTH 17.1 % (11.5-14.5)
[2018-05-25 05:31] LABS: ALB/GLOB RATIO 1.3 (1.0-2.1); ALBUMIN 3.8 g/dL (3.5-5.0); CALCIUM 8.6 mg/dL (8.4-10.2)
[2018-05-25 05:42] LABS: T3 0.636 nmol/L (1.49-2.60)
[2018-05-25] MEDS: Insulin Lispro (humaLOG) 100 Units/ml Inj SC SCH ×3 (06:03→17:51)
[2018-05-25] MEDS ORDERED: Dextrose 50% SYRINGE Inj (50 ml) IVP ONE (06:04)
--- NOTE | 2018-05-25 09:32 | CARD ---
APPROVED REPORT Date of service: 05/24/2018 EKG Measurement Heart [id number] <Conclusion> Sinus rhythm with 1st degree AV block Possible Left atrial enlargement Left ventricular hypertrophy with QRS widening and repolarization abnormality Cannot rule out Septal infarct, age undetermined Abnormal ECG
--- NOTE | 2018-05-25 10:05 | CARD ---
APPROVED REPORT Date of service: 05/24/2018 EXAM: Two-dimensional and M-mode echocardiogram with Doppler and color Doppler. Other Information Quality : AverageRhythm : Pacemaker Technically limited study due to PT UNABLE TO VERBAL CONSENT FOR BUBBLE STUDY. INDICATION CVA/TIA Surgery/Intervention Pacemaker: 2D DIMENSIONS IVSd1.13 (0.7-1.1cm)LVDd5.18 (3.9-5.9cm) LVOT Diameter2.38 (1.8-2.4cm)PWd0.96 (0.7-1.1cm) IVSs1.51 (0.8-1.2cm)LVDs4.07 (2.5-4.0cm) FS (%) 21.4 %PWs1.59 (0.8-1.2cm) M-Mode DIMENSIONS Left Atrium (MM)4.78 (2.5-4.0cm)IVSd1.56 (0.7-1.1cm) Aortic Root4.03 (2.2-3.7cm)LVDd6.25 (4.0-5.6cm) Aortic Cusp Exc.2.34 (1.5-2.0cm)PWd1.13 (0.7-1.1cm) IVSs1.94 cmFS (%) 22 % LVDs4.91 (2.0-3.8cm)PWs1.59 cm Aortic Valve AoV Peak Xzgmeucw756.6cm/sAoV VTI25.4cmAO Peak GR.5mmHg LVOT Peak Wodboycn61.6cm/sLVOT VTI17.29cmAO Mean GR.3mmHg YSUUF (VMAX)1.14ir2DMZ (VTI)1.59cm2 Mitral Valve MV E Untxzsvd31.3cm/sMV DECEL [id number] A Rkacwfac58.9cm/s MV MUY28cnR/A ratio0.8MVA (PHT)2.51cm2 TDI Lateral E' Peak V6.03cm/sMedial E' Peak V3.34cm/sE/Lateral E'9.5 E/Medial E'17.2 Tricuspid Valve TR Peak Spvsiceh460ds/sRAP [id number] Peak Gr.20mmHg [id number] LEFT VENTRICLE The Left Ventricle is mildly dilated. Left ventricle systolic function is mildly impaired. The Ejection Fraction is 40-45%. There is global hypokinesis of the left ventricle. Transmitral Doppler flow pattern is Grade I-abnormal relaxation pattern. Left Ventricular End Diastolic Pressure is mildly elevated. RIGHT VENTRICLE The right ventricle is normal size. The right ventricular systolic function is normal. ATRIA The left atrium is borderline dilated. The right atrium size is normal. The interatrial septum is intact with no evidence for an atrial septal defect. AORTIC VALVE The aortic valve is normal in structure. No aortic regurgitation is present. There is no aortic valvular stenosis. MITRAL VALVE The mitral valve is normal in structure. There is no mitral valve stenosis. Mitral regurgitation is trace to mild. TRICUSPID VALVE The tricuspid valve is normal in structure. There is mild tricuspid regurgitation. PULMONIC VALVE The pulmonic valve is not well visualized. There is no pulmonic valvular regurgitation. GREAT VESSELS The aortic root is normal in size. The IVC is normal in size and collapses >50% with inspiration. PERICARDIAL EFFUSION The pericardium appears normal. <Conclusion> Left ventricle systolic function is mildly impaired. The Ejection Fraction is 40-45%. Transmitral Doppler flow pattern is Grade I-abnormal relaxation pattern. Left Ventricular End Diastolic Pressure is mildly elevated. Mitral regurgitation is trace to mild. There is mild tricuspid regurgitation.
[2018-05-25] MEDS: levETIRAcetam 500 MG in Sodium Chloride 0.9% 100 ML IVPB SCH ×2 (10:26→21:44)
--- NOTE | 2018-05-25 10:34 | CP.PCM.CON ---
History of Present Illness - History of Present Illness History of Present Illness: patient is a 62 years of age male I was called to see him because of end stage renal disease on maintenance hemodialysis TTS. The history was available from the medical record and the patient and his not given history of verbalizing very little. And he was brought because of what appears to be altered mental status patient known to have a chronic end stage renal disease on dialysis he goes out patient to one of the [facility] review of the rest of the 14 system unremarkable other what mentioned above MHx: fib, prior CVA, DM2, HTN, HLD, and ESRD on T//Sa SHx: Hernia repair, pacemaker, Review of Systems - Constitutional Constitutional: absent: Chills - EENT Nose/Mouth/Throat: absent: Epistaxis - Cardiovascular Cardiovascular: absent: Chest Pain, Leg Ulcers - Respiratory Respiratory: absent: Cough, Dyspnea - Gastrointestinal Gastrointestinal: absent: Coffee Ground Emesis, Nausea - Genitourinary Genitourinary: Nocturia - Musculoskeletal Musculoskeletal: As Per HPI, Muscle Weakness - Neurological Neurological: Lack of Coordination. absent: Headaches, Syncope, Tremor - Endocrine Endocrine: Fatigue - Hematologic/Lymphatic Hematologic: absent: Easy Bleeding Past Patient History - Infectious Disease Hx of Infectious Diseases: None - Tetanus Immunizations Tetanus Immunization: Unknown - Past Medical History & Family History Past Medical History?: Yes - Past Social History Smoking Status: Never Smoked - CARDIAC Hx Atrial Fibrillation: Yes Hx Cardia Arrhythmia: Yes Hx Hypercholesterolemia: Yes Hx Hypertension: Yes Hx Pacemaker: Yes - PULMONARY Hx Respiratory Disorders: No - NEUROLOGICAL Hx Neurological Disorder: Yes HX Cerebrovascular Accident: Yes - HEENT Hx HEENT Problems: No - RENAL Hx Chronic Kidney Disease: Yes - ENDOCRINE/METABOLIC Hx Endocrine Disorders: Yes Hx Diabetes Mellitus Type 2: Yes - HEMATOLOGICAL/ONCOLOGICAL Hx Blood Disorders: No Hx AIDS: No Hx Human Immunodeficiency Virus (HIV): No - INTEGUMENTARY Hx Dermatological Problems: No - MUSCULOSKELETAL/RHEUMATOLOGICAL Hx Fractures: Yes - GASTROINTESTINAL Hx Gastrointestinal Disorders: Yes Hx Constipation: Yes Other/Comment: history of PEG tube; no longer in - GENITOURINARY/GYNECOLOGICAL Hx Genitourinary Disorders: Yes - PSYCHIATRIC Hx Psychophysiologic Disorder: No Hx Substance Use: No - SURGICAL HISTORY Hx Surgeries: Yes Hx Herniorrhaphy: Yes (bilateral inguina hernia) Hx Orthopedic Surgery: Yes (right humerus fx post fall) Other/Comment: hx of pacemaker and PEG - ANESTHESIA Hx Anesthesia: Yes Hx Anesthesia Reactions: No Hx Malignant Hyperthermia: No Meds Allergies/Adverse Reactions: Allergies Allergy/AdvReac Type Severity Reaction Status Date / Time No Known Allergies Allergy Verified 02/04/18 03:44 - Medications Medications: Current Medications Acetaminophen (Tylenol 650 Mg Supp) 650 mg TN Q6 PRN PRN Reason: Fever >100.4 F Last Admin: 05/25/18 05:32 Dose: 650 mg Amiodarone HCl (Cordarone) 400 mg PO DAILY [facility] Aspirin (Ecotrin) 81 mg PO DAILY [facility] Last Admin: 05/24/18 09:00 Dose: Not Given Aspirin (Aspirin Supp) 300 mg TN DAILY [facility] Last Admin: 05/24/18 12:57 Dose: 300 mg Clopidogrel Bisulfate (Plavix) 75 mg PO DAILY [facility] Last Admin: 05/24/18 09:00 Dose: Not Given Heparin Sodium (Porcine) (Heparin) 5,000 units SC Q8 [facility] PRN Reason: Protocol Last Admin: 05/25/18 00:47 Dose: 5,000 units Sodium Chloride (Sodium Chloride 0.9%) 1,000 mls @ 100 mls/hr IV .Q10H [facility] Last Admin: 05/25/18 00:52 Dose: 100 mls/hr Levetiracetam 500 mg/ Sodium (Chloride) 105 mls @ 210 mls/hr IVPB Q12 [facility] Last Admin: 05/25/18 10:26 Dose: 210 mls/hr Insulin Human Lispro (Humalog) 0 units SC Q6H [facility] PRN Reason: Protocol Last Admin: 05/25/18 06:03 Dose: Not Given Metoprolol Tartrate (Lopressor) 25 mg PO BID [facility] Last Admin: 05/24/18 17:00 Dose: Not Given Physical Exam - Constitutional Appears: No Acute Distress - ENT Exam ENT Exam: Mucous Membranes Dry - Neck Exam Neck exam: Negative for: Lymphadenopathy - Respiratory Exam Respiratory Exam: absent: Chest Wall Tenderness, Rales - Cardiovascular Exam Cardiovascular Exam: absent: Gallop, JVD, Rubs - GI/Abdominal Exam GI & Abdominal Exam: absent: Guarding, Normal Bowel Sounds - Neurological Exam Neurological exam: Altered - Psychiatric Exam Psychiatric exam: Flat Affect Results - Vital Signs Recent Vital Signs: Last Vital Signs Temp 99.2 F 05/25/18 08:00 Pulse 81 05/25/18 08:00 Resp 20 05/25/18 08:00 BP 145/67 05/25/18 08:00 Pulse Ox 97 05/25/18 09:31 - Labs Result Diagrams: 05/25/18 04:30 05/25/18 04:30 Labs: Laboratory Results - last 24 hr 05/23/18 05/23/18 05/24/18 20:17 20:41 01:29 WBC RBC Hgb Hct MCV MCH MCHC RDW Plt Count MPV Neut % (Auto) Lymph % (Auto) [place] % (Auto) Eos % (Auto) Baso % (Auto) Neut # (Auto) Lymph # (Auto) [place] # (Auto) Eos # (Auto) Baso # (Auto) PT INR APTT Sodium Potassium Chloride Carbon Dioxide Anion Gap BUN Creatinine Est GFR ( Amer) Est GFR (Non-Af Amer) POC Glucose (mg/dL) 202 H 170 H Random Glucose Hemoglobin A1c 8.8 H Calcium Phosphorus Magnesium Total Bilirubin AST ALT Alkaline Phosphatase CK-MB (Mass) Troponin I Total Protein Albumin Globulin Albumin/Globulin Ratio Free T4 Total T3 TSH 3rd Generation 05/24/18 05/24/18 05/24/18 05:26 11:05 14:06 WBC RBC Hgb Hct MCV MCH MCHC RDW Plt Count MPV Neut % (Auto) Lymph % (Auto) [place] % (Auto) Eos % (Auto) Baso % (Auto) Neut # (Auto) Lymph # (Auto) [place] # (Auto) Eos # (Auto) Baso # (Auto) PT INR APTT Sodium Potassium Chloride Carbon Dioxide Anion Gap BUN Creatinine Est GFR ( Amer) Est GFR (Non-Af Amer) POC Glucose (mg/dL) 135 H 107 117 H Random Glucose Hemoglobin A1c Calcium Phosphorus Magnesium Total Bilirubin AST ALT Alkaline Phosphatase CK-MB (Mass) Troponin I Total Protein Albumin Globulin Albumin/Globulin Ratio Free T4 Total T3 TSH 3rd Generation 05/24/18 05/24/18 05/24/18 15:00 15:00 15:30 WBC 6.6 6.9 RBC 3.93 L 4.39 L Hgb 10.9 L 12.3 Hct 34.3 L 38.2 MCV 87.2 86.8 MCH 27.7 28.1 MCHC 31.8 L 32.4 L RDW 17.3 H 17.6 H Plt Count 272 248 MPV 8.6 Neut % (Auto) 65.7 Lymph % (Auto) 22.6 [place] % (Auto) 7.1 Eos % (Auto) 3.6 Baso % (Auto) 1.0 Neut # (Auto) 4.5 Lymph # (Auto) 1.5 [place] # (Auto) 0.5 Eos # (Auto) 0.2 Baso # (Auto) 0.1 PT INR APTT Sodium 146 Potassium 5.0 Chloride 101 Carbon Dioxide 29 Anion Gap 21 H BUN 38 H Creatinine 7.3 H Est GFR ( Amer) 9 Est GFR (Non-Af Amer) 8 POC Glucose (mg/dL) Random Glucose 105 Hemoglobin A1c Calcium 9.4 Phosphorus 5.8 H Magnesium 2.3 Total Bilirubin AST ALT Alkaline Phosphatase CK-MB (Mass) Troponin I Total Protein Albumin Globulin Albumin/Globulin Ratio Free T4 Total T3 TSH 3rd Generation 05/24/18 05/24/18 05/24/18 15:30 15:30 16:13 WBC RBC Hgb Hct MCV MCH MCHC RDW Plt Count MPV Neut % (Auto) Lymph % (Auto) [place] % (Auto) Eos % (Auto) Baso % (Auto) Neut # (Auto) Lymph # (Auto) [place] # (Auto) Eos # (Auto) Baso # (Auto) PT 12.6 INR 1.1 APTT 31.4 Sodium 147 Potassium 5.0 Chloride 100 Carbon Dioxide 28 Anion Gap 24 H BUN 39 H Creatinine 7.3 H Est GFR ( Amer) 9 Est GFR (Non-Af Amer) 8 POC Glucose (mg/dL) 102 Random Glucose 104 Hemoglobin A1c Calcium 10.0 Phosphorus 6.0 H Magnesium 2.3 Total Bilirubin 0.8 AST 19 ALT 19 L Alkaline Phosphatase 112 CK-MB (Mass) 1.27 Troponin I 0.0630 Total Protein 7.9 Albumin 4.5 Globulin 3.4 Albumin/Globulin Ratio 1.3 Free T4 Total T3 TSH 3rd Generation 05/24/18 05/24/18 05/25/18 21:17 22:30 00:01 WBC RBC Hgb Hct MCV MCH MCHC RDW Plt Count MPV Neut % (Auto) Lymph % (Auto) [place] % (Auto) Eos % (Auto) Baso % (Auto) Neut # (Auto) Lymph # (Auto) [place] # (Auto) Eos # (Auto) Baso # (Auto) PT INR APTT Sodium Potassium Chloride Carbon Dioxide Anion Gap BUN Creatinine Est GFR ( Amer) Est GFR (Non-Af Amer) POC Glucose (mg/dL) 73 169 H 109 Random Glucose Hemoglobin A1c Calcium Phosphorus Magnesium Total Bilirubin AST ALT Alkaline Phosphatase CK-MB (Mass) Troponin I Total Protein Albumin Globulin Albumin/Globulin Ratio Free T4 Total T3 TSH 3rd Generation 05/25/18 05/25/18 05/25/18 04:30 04:30 04:30 WBC 10.0 RBC 3.72 L Hgb 10.3 L D Hct 32.7 L MCV 87.8 MCH 27.6 MCHC 31.5 L RDW 17.1 H Plt Count 255 MPV 8.6 Neut % (Auto) 87.4 H Lymph % (Auto) 6.6 L [place] % (Auto) 4.8 Eos % (Auto) 0.9 Baso % (Auto) 0.3 Neut # (Auto) 8.7 H Lymph # (Auto) 0.7 L [place] # (Auto) 0.5 Eos # (Auto) 0.1 Baso # (Auto) 0.0 PT INR APTT Sodium 149 H Potassium 5.1 H Chloride 106 Carbon Dioxide 23 Anion Gap 25 H BUN 41 H Creatinine 7.6 H* Est GFR ( Amer) 9 Est GFR (Non-Af Amer) 7 POC Glucose (mg/dL) Random Glucose 87 Hemoglobin A1c Calcium 8.6 Phosphorus Magnesium 2.0 Total Bilirubin 0.8 AST 14 L D ALT 19 L Alkaline Phosphatase 100 CK-MB (Mass) Troponin I Total Protein 6.7 Albumin 3.8 Globulin 2.9 Albumin/Globulin Ratio 1.3 Free T4 1.84 Total T3 0.636 L TSH 3rd Generation 0.93 05/25/18 05/25/18 05/25/18 05:44 06:38 08:33 WBC RBC Hgb Hct MCV MCH MCHC RDW Plt Count MPV Neut % (Auto) Lymph % (Auto) [place] % (Auto) Eos % (Auto) Baso % (Auto) Neut # (Auto) Lymph # (Auto) [place] # (Auto) Eos # (Auto) Baso # (Auto) PT INR APTT Sodium Potassium Chloride Carbon Dioxide Anion Gap BUN Creatinine Est GFR ( Amer) Est GFR (Non-Af Amer) POC Glucose (mg/dL) 79 187 H Random Glucose Hemoglobin A1c Calcium Phosphorus Magnesium Total Bilirubin AST ALT Alkaline Phosphatase CK-MB (Mass) Troponin I 0.0480 Total Protein Albumin Globulin Albumin/Globulin Ratio Free T4 Total T3 TSH 3rd Generation Assessment & Plan (1) A-fib Status: Acute (2) Altered mental status Status: Acute (3) DM2 (diabetes mellitus, type 2) Status: Acute (4) ESRD (end stage renal disease) on dialysis Assessment and Plan: patient with end stage renal disease on maintenance hemodialysis admitted with altered mental status. Among other things was history of atrial fibrillation Hemodialysis has been orator consent was taken and also the sister at the bedside Hypertension appears to be controlled History of hyperphosphatemia and history of secondary hyperparathyroidism Status: Acute (5) HTN (hypertension) Status: Acute
[2018-05-25 10:45] LABS: ANISOCYTOSIS SLIGHT; BANDS 1 % (0-2); BASOPHIL 1 % (0-2); LYMPHOCYTE 8 % (20-50); MONOCYTE 5 % (0-10); NEUTROPHIL 85 % (42-75); PLATELET ESTIMATE NORMAL (NORMAL); TOTAL CELLS COUNTED 100
[2018-05-25 10:46] LABS: HYPOCHROMIC SLIGHT; OVALOCYTES SLIGHT; SCHISTOCYTES SLIGHT
[2018-05-25 10:47] LABS: TEARDROP CELLS SLIGHT
[2018-05-25] MEDS ORDERED: Metoprolol 1 mg/ml Inj IVP ONE (11:06)
--- NOTE | 2018-05-25 11:17 | CARD ---
APPROVED REPORT Date of service: 05/23/2018 EKG Measurement Heart [id number] <Conclusion> Ventricular paced rhythm Abnormal ECG
--- NOTE | 2018-05-25 13:10 | CP.PCM.PN ---
Subjective - Date & Time of Evaluation Date of Evaluation: 05/25/18 Time of Evaluation: 13:00 - Subjective Subjective: dialysis note He was seen on hemodialysis Vital signs stable Patient developed short time tachycardia as reported by the dialysis nurse Patient in bed verbalizing Objective - Vital Signs/Intake and Output Vital Signs (last 24 hours): Temp Pulse Resp BP Pulse Ox 99.2 F 70 20 157/76 H 97 05/25/18 08:00 05/25/18 11:10 05/25/18 08:00 05/25/18 11:10 05/25/18 09:31 Intake and Output: 05/25/18 05/25/18 06:59 18:59 Intake Total 700 Balance 700 - Medications Medications: Current Medications Acetaminophen (Tylenol 650 Mg Supp) 650 mg PA Q6 PRN PRN Reason: Fever >100.4 F Last Admin: 05/25/18 05:32 Dose: 650 mg Amiodarone HCl (Cordarone) 400 mg PO DAILY [facility] Last Admin: 05/25/18 11:14 Dose: Not Given Aspirin (Ecotrin) 81 mg PO DAILY [facility] Last Admin: 05/25/18 11:15 Dose: Not Given Aspirin (Aspirin Supp) 300 mg PA DAILY [facility] Last Admin: 05/24/18 12:57 Dose: 300 mg Clopidogrel Bisulfate (Plavix) 75 mg PO DAILY [facility] Last Admin: 05/25/18 11:16 Dose: Not Given Heparin Sodium (Porcine) (Heparin) 5,000 units SC Q8 [facility] PRN Reason: Protocol Last Admin: 05/25/18 00:47 Dose: 5,000 units Sodium Chloride (Sodium Chloride 0.9%) 1,000 mls @ 100 mls/hr IV .Q10H [facility] Last Admin: 05/25/18 00:52 Dose: 100 mls/hr Levetiracetam 500 mg/ Sodium (Chloride) 105 mls @ 210 mls/hr IVPB Q12 [facility] Last Admin: 05/25/18 10:26 Dose: 210 mls/hr Dextrose/Sodium Chloride (Dextrose 5%-0.45% Ns 500 Ml) 1,000 mls @ 80 mls/hr IV .[id number] [facility] Stop: 05/26/18 12:32 Vancomycin HCl 750 mg/ Sodium (Chloride) 250 mls @ 166.667 mls/hr IVPB ONCE ONE PRN Reason: Protocol Stop: 05/25/18 14:29 Insulin Human Lispro (Humalog) 0 units SC Q6H [facility] PRN Reason: Protocol Last Admin: 05/25/18 06:03 Dose: Not Given Metoprolol Tartrate (Lopressor) 25 mg PO BID [facility] Last Admin: 05/25/18 11:15 Dose: Not Given - Labs Labs: 05/25/18 04:30 05/25/18 04:30 PT 12.6 Seconds (9.8-13.1) 05/24/18 15:30 INR 1.1 (0.9-1.2) 05/24/18 15:30 APTT 31.4 Seconds (25.6-37.1) 05/24/18 15:30 - Constitutional Appears: No Acute Distress - ENT Exam ENT Exam: Mucous Membranes Dry - Respiratory Exam Respiratory Exam: NORMAL BREATHING PATTERN - Cardiovascular Exam Cardiovascular Exam: absent: Gallop, Rubs - GI/Abdominal Exam GI & Abdominal Exam: Soft, Normal Bowel Sounds - Extremities Exam Extremities Exam: absent: Calf Tenderness - Back Exam Back Exam: absent: CVA tenderness (L), CVA tenderness (R) - Neurological Exam Neurological Exam: Altered - Psychiatric Exam Psychiatric exam: Flat Affect Assessment and Plan (1) A-fib Status: Acute (2) Altered mental status Status: Acute (3) DM2 (diabetes mellitus, type 2) Status: Acute (4) ESRD (end stage renal disease) on dialysis Assessment & Plan: end stage renal disease patient being dialyze through left arm AV shunt The daughter at the bedside Dialysis order discussed with the dialysis nurse at the bedside Sodium bath 138 Bicarbonate bath 34 Potassium bath 2 mEq Ultrafiltration about 1500 mL as tolerated Continue hemodialysis as scheduled and also as per primary team for the management patient seen in intensive care unit Status: Acute (5) HTN (hypertension) Status: Acute
--- NOTE | 2018-05-25 14:15 | CARD ---
APPROVED REPORT Date of service: 05/24/2018 EKG Measurement Heart [id number] <Conclusion> Ventricular Pacemaker with normal sensing and capture Sinus rhythm with 1st degree AV block Left ventricular hypertrophy consider lateral wall myocardial ischemia Septal infarct, age undetermined Abnormal ECG
--- NOTE | 2018-05-25 14:44 | RAD ---
Date of service: 05/25/2018 HISTORY: fever r/o Pneumonia COMPARISON: Portable chest 05/23/2018. FINDINGS: LUNGS: Mild airspace disease has developed at the right base with none on the left. Some elevation the right hemidiaphragm may also present. PLEURA: No significant pleural effusion identified, no pneumothorax apparent. CARDIOVASCULAR: Stable cardiomediastinal silhouette including pacemaker. OSSEOUS STRUCTURES: No significant abnormalities. VISUALIZED UPPER ABDOMEN: Normal. OTHER FINDINGS: None. IMPRESSION: Interval airspace disease right base and potential elevation right hemidiaphragm. Stable cardiomegaly.
--- NOTE | 2018-05-25 14:56 | CP.PCM.CON ---
History of Present Illness - History of Present Illness History of Present Illness: 62 y/o male admitted for mental status changes. Consulted for Tachycardia noted on tele. Pt has underlying SR. rhythm strips reveal WCT, both pacemaker mediated and possible nonpacer mediated. Episodic tachy is at rate of 120 bpm without Hemodynamic instability. Pt is nonverbal. he has a [employer] dual chamber pm. Trop are negative despite CRF on HD. Prior and current echo reviewed. No significant MAJOR changes noted. Review of Systems - Review of Systems Systems not reviewed;Unavailable: Altered Mental Status Past Patient History - Infectious Disease Hx of Infectious Diseases: None - Tetanus Immunizations Tetanus Immunization: Unknown - Past Medical History & Family History Past Medical History?: Yes - Past Social History Smoking Status: Never Smoked Chewing Tobacco Use: No Cigar Use: No Alcohol: None - CARDIAC Hx Atrial Fibrillation: Yes Hx Cardia Arrhythmia: Yes Hx Hypercholesterolemia: Yes Hx Hypertension: Yes Hx Pacemaker: Yes - PULMONARY Hx Respiratory Disorders: No - NEUROLOGICAL Hx Neurological Disorder: Yes HX Cerebrovascular Accident: Yes - HEENT Hx HEENT Problems: No - RENAL Hx Chronic Kidney Disease: Yes - ENDOCRINE/METABOLIC Hx Endocrine Disorders: Yes Hx Diabetes Mellitus Type 2: Yes - HEMATOLOGICAL/ONCOLOGICAL Hx Blood Disorders: No Hx AIDS: No Hx Human Immunodeficiency Virus (HIV): No - INTEGUMENTARY Hx Dermatological Problems: No - MUSCULOSKELETAL/RHEUMATOLOGICAL Hx Fractures: Yes - GASTROINTESTINAL Hx Gastrointestinal Disorders: Yes Hx Constipation: Yes Other/Comment: history of PEG tube; no longer in - GENITOURINARY/GYNECOLOGICAL Hx Genitourinary Disorders: Yes - PSYCHIATRIC Hx Psychophysiologic Disorder: No Hx Substance Use: No - SURGICAL HISTORY Hx Surgeries: Yes Hx Herniorrhaphy: Yes (bilateral inguina hernia) Hx Orthopedic Surgery: Yes (right humerus fx post fall) Other/Comment: hx of pacemaker and PEG - ANESTHESIA Hx Anesthesia: Yes Hx Anesthesia Reactions: No Hx Malignant Hyperthermia: No Meds Allergies/Adverse Reactions: Allergies Allergy/AdvReac Type Severity Reaction Status Date / Time No Known Allergies Allergy Verified 02/04/18 03:44 - Medications Medications: Current Medications Acetaminophen (Tylenol 650 Mg Supp) 650 mg ID Q6 PRN PRN Reason: Fever >100.4 F Last Admin: 05/25/18 05:32 Dose: 650 mg Amiodarone HCl (Cordarone) 400 mg PO DAILY [facility] Last Admin: 05/25/18 11:14 Dose: Not Given Aspirin (Ecotrin) 81 mg PO DAILY [facility] Last Admin: 05/25/18 11:15 Dose: Not Given Aspirin (Aspirin Supp) 300 mg ID DAILY [facility] Last Admin: 05/25/18 13:28 Dose: 300 mg Clopidogrel Bisulfate (Plavix) 75 mg PO DAILY [facility] Last Admin: 05/25/18 11:16 Dose: Not Given Heparin Sodium (Porcine) (Heparin) 5,000 units SC Q8 [facility] PRN Reason: Protocol Last Admin: 05/25/18 13:28 Dose: 5,000 units Sodium Chloride (Sodium Chloride 0.9%) 1,000 mls @ 100 mls/hr IV .Q10H [facility] Last Admin: 05/25/18 00:52 Dose: 100 mls/hr Levetiracetam 500 mg/ Sodium (Chloride) 105 mls @ 210 mls/hr IVPB Q12 [facility] Last Admin: 05/25/18 10:26 Dose: 210 mls/hr Dextrose/Sodium Chloride (Dextrose 5%-0.45% Ns 500 Ml) 1,000 mls @ 80 mls/hr IV .[id number] [facility] Stop: 05/26/18 12:32 Last Admin: 05/25/18 13:27 Dose: 80 mls/hr Insulin Human Lispro (Humalog) 0 units SC Q6H [facility] PRN Reason: Protocol Last Admin: 05/25/18 13:30 Dose: Not Given Metoprolol Tartrate (Lopressor) 25 mg PO BID [facility] Last Admin: 05/25/18 11:15 Dose: Not Given Physical Exam - Constitutional Appears: Chronically Ill - Head Exam Head Exam: ATRAUMATIC, NORMAL INSPECTION, NORMOCEPHALIC - Eye Exam Eye Exam: EOMI, Normal appearance, PERRL. absent: Conjunctival injection, Nystagmus, Periorbital swelling, Periorbital tenderness, Scleral icterus Pupil Exam: NORMAL ACCOMODATION, PERRL. absent: Fixed, Irregular, Miosis, Mydriatic, Unequal - ENT Exam ENT Exam: Mucous Membranes Dry. absent: Mucous Membranes Moist, Normal Exam, Normal External Ear Exam, Normal Oropharynx, TM's Normal Bilaterally - Neck Exam Neck exam: Positive for: Normal Inspection. Negative for: Full Rom, Lymphadenopathy, Meningismus, Tenderness, Thyromegaly - Respiratory Exam Respiratory Exam: Clear to Auscultation Bilateral, NORMAL BREATHING PATTERN. absent: Accessory Muscle Use, Chest Wall Tenderness, Decreased Breath Sounds, Prolonged Expiratory Phase, Rales, Rhonchi, Wheezes, Respiratory Distress, Stridor - Cardiovascular Exam Cardiovascular Exam: REGULAR RHYTHM, +S1, Systolic Murmur. absent: Bradycardia , Tachycardia, Clicks, Diastolic murmur, Gallop, Irregular Rhythm, JVD, RRR, Rubs, +S2, +S4 - GI/Abdominal Exam GI & Abdominal Exam: Normal Bowel Sounds, Soft. absent: Bruit, Diminished Bowel Sounds, Distended, Firm, Guarding, Hernia, Hyperactive Bowel Sounds, Hypoactive Bowel Sounds, Mass, Organomegaly, Pulsatile Mass, Rebound, Rigid, Tenderness - Rectal Exam Rectal Exam: Deferred - Extremities Exam Extremities exam: Positive for: normal inspection, pedal pulses present. Negative for: calf tenderness, full ROM, joint swelling, normal capillary refill , pedal edema, tenderness - Back Exam Back exam: NORMAL INSPECTION. absent: CVA tenderness (L), CVA tenderness (R), FULL ROM, muscle spasm, paraspinal tenderness, rash noted, tenderness, vertebral tenderness - Neurological Exam Additional comments: nonverbal, minimal responses. - Psychiatric Exam Additional comments: nonverbal, minimal responses. - Skin Skin Exam: Dry, Intact, Normal Color, Warm Results - Vital Signs Recent Vital Signs: Last Vital Signs Temp 99.2 F 05/25/18 08:00 Pulse 70 05/25/18 11:10 Resp 20 05/25/18 08:00 BP 157/76 H 05/25/18 11:10 Pulse Ox 97 05/25/18 09:31 - Labs Result Diagrams: 05/25/18 04:30 05/25/18 04:30 Labs: Laboratory Results - last 24 hr 05/23/18 05/24/18 05/24/18 20:41 05:26 15:00 WBC 6.6 RBC 3.93 L Hgb 10.9 L Hct 34.3 L MCV 87.2 MCH 27.7 MCHC 31.8 L RDW 17.3 H Plt Count 272 MPV Neut % (Auto) Lymph % (Auto) [place] % (Auto) Eos % (Auto) Baso % (Auto) Neut # (Auto) Lymph # (Auto) [place] # (Auto) Eos # (Auto) Baso # (Auto) Neutrophils % (Manual) Band Neutrophils % Lymphocytes % (Manual) Monocytes % (Manual) Basophils % (Manual) Platelet Estimate Hypochromasia (manual) Anisocytosis (manual) Tear Drop Cells Ovalocytes Schistocytes PT INR APTT Sodium Potassium Chloride Carbon Dioxide Anion Gap BUN Creatinine Est GFR ( Amer) Est GFR (Non-Af Amer) POC Glucose (mg/dL) 135 H Random Glucose Hemoglobin A1c 8.8 H Calcium Phosphorus Magnesium Total Bilirubin AST ALT Alkaline Phosphatase CK-MB (Mass) Troponin I Total Protein Albumin Globulin Albumin/Globulin Ratio Free T4 Total T3 TSH 3rd Generation 05/24/18 05/24/18 05/24/18 15:00 15:30 15:30 WBC 6.9 RBC 4.39 L Hgb 12.3 Hct 38.2 MCV 86.8 MCH 28.1 MCHC 32.4 L RDW 17.6 H Plt Count 248 MPV 8.6 Neut % (Auto) 65.7 Lymph % (Auto) 22.6 [place] % (Auto) 7.1 Eos % (Auto) 3.6 Baso % (Auto) 1.0 Neut # (Auto) 4.5 Lymph # (Auto) 1.5 [place] # (Auto) 0.5 Eos # (Auto) 0.2 Baso # (Auto) 0.1 Neutrophils % (Manual) Band Neutrophils % Lymphocytes % (Manual) Monocytes % (Manual) Basophils % (Manual) Platelet Estimate Hypochromasia (manual) Anisocytosis (manual) Tear Drop Cells Ovalocytes Schistocytes PT 12.6 INR 1.1 APTT 31.4 Sodium 146 Potassium 5.0 Chloride 101 Carbon Dioxide 29 Anion Gap 21 H BUN 38 H Creatinine 7.3 H Est GFR ( Amer) 9 Est GFR (Non-Af Amer) 8 POC Glucose (mg/dL) Random Glucose 105 Hemoglobin A1c Calcium 9.4 Phosphorus 5.8 H Magnesium 2.3 Total Bilirubin AST ALT Alkaline Phosphatase CK-MB (Mass) Troponin I Total Protein Albumin Globulin Albumin/Globulin Ratio Free T4 Total T3 TSH 3rd Generation 05/24/18 05/24/18 05/24/18 15:30 16:13 21:17 WBC RBC Hgb Hct MCV MCH MCHC RDW Plt Count MPV Neut % (Auto) Lymph % (Auto) [place] % (Auto) Eos % (Auto) Baso % (Auto) Neut # (Auto) Lymph # (Auto) [place] # (Auto) Eos # (Auto) Baso # (Auto) Neutrophils % (Manual) Band Neutrophils % Lymphocytes % (Manual) Monocytes % (Manual) Basophils % (Manual) Platelet Estimate Hypochromasia (manual) Anisocytosis (manual) Tear Drop Cells Ovalocytes Schistocytes PT INR APTT Sodium 147 Potassium 5.0 Chloride 100 Carbon Dioxide 28 Anion Gap 24 H BUN 39 H Creatinine 7.3 H Est GFR ( Amer) 9 Est GFR (Non-Af Amer) 8 POC Glucose (mg/dL) 102 73 Random Glucose 104 Hemoglobin A1c Calcium 10.0 Phosphorus 6.0 H Magnesium 2.3 Total Bilirubin 0.8 AST 19 ALT 19 L Alkaline Phosphatase 112 CK-MB (Mass) 1.27 Troponin I 0.0630 Total Protein 7.9 Albumin 4.5 Globulin 3.4 Albumin/Globulin Ratio 1.3 Free T4 Total T3 TSH 3rd Generation 05/24/18 05/25/18 05/25/18 22:30 00:01 04:30 WBC 10.0 RBC 3.72 L Hgb 10.3 L D Hct 32.7 L MCV 87.8 MCH 27.6 MCHC 31.5 L RDW 17.1 H Plt Count 255 MPV 8.6 Neut % (Auto) 87.4 H Lymph % (Auto) 6.6 L [place] % (Auto) 4.8 Eos % (Auto) 0.9 Baso % (Auto) 0.3 Neut # (Auto) 8.7 H Lymph # (Auto) 0.7 L [place] # (Auto) 0.5 Eos # (Auto) 0.1 Baso # (Auto) 0.0 Neutrophils % (Manual) 85 H Band Neutrophils % 1 Lymphocytes % (Manual) 8 L Monocytes % (Manual) 5 Basophils % (Manual) 1 Platelet Estimate Normal Hypochromasia (manual) Slight Anisocytosis (manual) Slight Tear Drop Cells Slight Ovalocytes Slight Schistocytes Slight PT INR APTT Sodium Potassium Chloride Carbon Dioxide Anion Gap BUN Creatinine Est GFR ( Amer) Est GFR (Non-Af Amer) POC Glucose (mg/dL) 169 H 109 Random Glucose Hemoglobin A1c Calcium Phosphorus Magnesium Total Bilirubin AST ALT Alkaline Phosphatase CK-MB (Mass) Troponin I Total Protein Albumin Globulin Albumin/Globulin Ratio Free T4 Total T3 TSH 3rd Generation 05/25/18 05/25/18 05/25/18 04:30 04:30 05:44 WBC RBC Hgb Hct MCV MCH MCHC RDW Plt Count MPV Neut % (Auto) Lymph % (Auto) [place] % (Auto) Eos % (Auto) Baso % (Auto) Neut # (Auto) Lymph # (Auto) [place] # (Auto) Eos # (Auto) Baso # (Auto) Neutrophils % (Manual) Band Neutrophils % Lymphocytes % (Manual) Monocytes % (Manual) Basophils % (Manual) Platelet Estimate Hypochromasia (manual) Anisocytosis (manual) Tear Drop Cells Ovalocytes Schistocytes PT INR APTT Sodium 149 H Potassium 5.1 H Chloride 106 Carbon Dioxide 23 Anion Gap 25 H BUN 41 H Creatinine 7.6 H* Est GFR ( Amer) 9 Est GFR (Non-Af Amer) 7 POC Glucose (mg/dL) 79 Random Glucose 87 Hemoglobin A1c Calcium 8.6 Phosphorus Magnesium 2.0 Total Bilirubin 0.8 AST 14 L D ALT 19 L Alkaline Phosphatase 100 CK-MB (Mass) Troponin I Total Protein 6.7 Albumin 3.8 Globulin 2.9 Albumin/Globulin Ratio 1.3 Free T4 1.84 Total T3 0.636 L TSH 3rd Generation 0.93 05/25/18 05/25/18 05/25/18 06:38 08:33 12:22 WBC RBC Hgb Hct MCV MCH MCHC RDW Plt Count MPV Neut % (Auto) Lymph % (Auto) [place] % (Auto) Eos % (Auto) Baso % (Auto) Neut # (Auto) Lymph # (Auto) [place] # (Auto) Eos # (Auto) Baso # (Auto) Neutrophils % (Manual) Band Neutrophils % Lymphocytes % (Manual) Monocytes % (Manual) Basophils % (Manual) Platelet Estimate Hypochromasia (manual) Anisocytosis (manual) Tear Drop Cells Ovalocytes Schistocytes PT INR APTT Sodium Potassium Chloride Carbon Dioxide Anion Gap BUN Creatinine Est GFR ( Amer) Est GFR (Non-Af Amer) POC Glucose (mg/dL) 187 H 77 Random Glucose Hemoglobin A1c Calcium Phosphorus Magnesium Total Bilirubin AST ALT Alkaline Phosphatase CK-MB (Mass) Troponin I 0.0480 Total Protein Albumin Globulin Albumin/Globulin Ratio Free T4 Total T3 TSH 3rd Generation Assessment & Plan (1) Wide-complex tachycardia Status: Acute (2) PMT (pacemaker-mediated tachycardia) Status: Acute (3) A-fib Status: Acute (4) Altered mental status Status: Acute (5) HTN (hypertension) Status: Acute (6) ESRD (end stage renal disease) on dialysis Status: Acute (7) CVA, old, aphasia Status: Acute (8) LVH (left ventricular hypertrophy) Status: Acute (9) Ejection fraction < 50% Status: Acute (10) Diastolic dysfunction Status: Acute - Assessment and Plan (Free Text) Plan: I HAVE CONTACTED [facility] FOR PM INTERROGATION. WILL ADJUST PM SETTINGS BASED ON RESULTS. MAY NEED PVARP ALTERED. SINCE UNABLE TO TAKE PO WOULD USE LOW DOSE IV METOPROLOL. PT LVEDP MILDLY ELEVATED LIKELY DUE TO MILD VOLUME OVERLOAD. ACEI ONCE EUVOLEMIC ON HD. ECHO, EKGS, CAROTIDS, TELE REVIEWED. 95 MIN TOTAL CARE TIME.
--- NOTE | 2018-05-25 15:01 | CP.PCM.PN ---
Subjective - Date & Time of Evaluation Date of Evaluation: 05/25/18 Time of Evaluation: 13:00 - Subjective Subjective: Pt had fever today more awake answers question appropriately however has minimal verbal output denies CP no SOB no headache Had dialysis today Objective - Vital Signs/Intake and Output Vital Signs (last 24 hours): Temp Pulse Resp BP Pulse Ox 99.2 F 70 20 157/76 H 97 05/25/18 08:00 05/25/18 11:10 05/25/18 08:00 05/25/18 11:10 05/25/18 09:31 Intake and Output: 05/25/18 05/25/18 06:59 18:59 Intake Total 700 Balance 700 - Medications Medications: Current Medications Acetaminophen (Tylenol 650 Mg Supp) 650 mg PA Q6 PRN PRN Reason: Fever >100.4 F Last Admin: 05/25/18 05:32 Dose: 650 mg Amiodarone HCl (Cordarone) 400 mg PO DAILY [facility] Last Admin: 05/25/18 11:14 Dose: Not Given Aspirin (Ecotrin) 81 mg PO DAILY [facility] Last Admin: 05/25/18 11:15 Dose: Not Given Aspirin (Aspirin Supp) 300 mg PA DAILY [facility] Last Admin: 05/25/18 13:28 Dose: 300 mg Clopidogrel Bisulfate (Plavix) 75 mg PO DAILY [facility] Last Admin: 05/25/18 11:16 Dose: Not Given Heparin Sodium (Porcine) (Heparin) 5,000 units SC Q8 [facility] PRN Reason: Protocol Last Admin: 05/25/18 13:28 Dose: 5,000 units Sodium Chloride (Sodium Chloride 0.9%) 1,000 mls @ 100 mls/hr IV .Q10H [facility] Last Admin: 05/25/18 00:52 Dose: 100 mls/hr Levetiracetam 500 mg/ Sodium (Chloride) 105 mls @ 210 mls/hr IVPB Q12 [facility] Last Admin: 05/25/18 10:26 Dose: 210 mls/hr Dextrose/Sodium Chloride (Dextrose 5%-0.45% Ns 500 Ml) 1,000 mls @ 80 mls/hr IV .[id number] [facility] Stop: 05/26/18 12:32 Last Admin: 05/25/18 13:27 Dose: 80 mls/hr Insulin Human Lispro (Humalog) 0 units SC Q6H [facility] PRN Reason: Protocol Last Admin: 05/25/18 13:30 Dose: Not Given Metoprolol Tartrate (Lopressor) 25 mg PO BID [facility] Last Admin: 05/25/18 11:15 Dose: Not Given - Labs Labs: 05/25/18 04:30 05/25/18 04:30 PT 12.6 Seconds (9.8-13.1) 05/24/18 15:30 INR 1.1 (0.9-1.2) 05/24/18 15:30 APTT 31.4 Seconds (25.6-37.1) 05/24/18 15:30 - Constitutional Appears: Chronically Ill, more awake today, answers questions appropriately - Head Exam Head Exam: NORMAL INSPECTION, NORMOCEPHALIC - ENT Exam ENT Exam: Mucous Membranes Dry, Normal External Ear Exam - Neck Exam Neck Exam: absent: Meningismus - Respiratory Exam Respiratory Exam: Rhonchi, NORMAL BREATHING PATTERN. absent: Respiratory Distress - Cardiovascular Exam Cardiovascular Exam: REGULAR RHYTHM, +S1, +S2 - GI/Abdominal Exam GI & Abdominal Exam: Soft, Normal Bowel Sounds - Extremities Exam Extremities Exam: Normal Capillary Refill, Pedal Edema - Neurological Exam Additional comments: more awake today opens eyes to verbal stimuli answers questions appropriately follows simple commands - Skin Skin Exam: Dry, Normal Color, Warm Assessment and Plan - Assessment and Plan (Free Text) Assessment: 62 y/o male with Hx of A fib, prior CVA, DM2, HTN, HLD, Dementia and ESRD on HD T// who comes in with hallucinations and mental status changes. 05/24: noted wide complex tachycardia on Tele monitoring 1. Acute Change in mental Status ? Toxic Metabolic Encephalopathy r/o SEizure , r/o CVA -ICU monitoring -Serial trops : negative so far -Echo: -Carotid dopplers: no stenosis -EEG -- CT of head , CTA of head /Neck : neg - unable to do MRI due to presence of Pacemaker -cont ASA 300 PA -Keppra 1000 loading dose , then 500 mg IV BID ( pt noted to have some twitching) -Permissive HTN -Neuro consult (Dr Marie) -PT/OT consult - LDL =57 - no statin - Passed swallow eval - start diet 2. Wide Complex tachycardia ? V tach r/o Pacemaker Mediated Tachycardia - Amiodarone x 1 dose given yesterday - Mg normal -Cardio consulted- discussed case with Dr Vallejo - rec Pacemaker Interrogation 3) DM type II -SSI and accuchecks 4) A fib , paroxysmal s/p Pacemaker Pt has Pacemaker -Metoprolol IV prn 5) ESRD on HD -Renal consult - Dr Trujillo - HD: T S 6. Hx of CVA cont ASA, 7. HTN allow permissive HTN 8. Fever ? etiology - Panculture -Vanco x 1 dose given after dialysis -rpt CXR - ID consulted - discussed case with DR Santiago - DR santiago rec IV Zosyn for now DVT PPx -SQ heparin
[2018-05-25 17:08] LABS: HEPATITIS B SURFACE AG Negative (NEGATIVE)
[2018-05-25 17:14] LABS: HEPATITIS A IGM NEGATIVE (NEGATIVE); HEPATITIS B CORE AB NEGATIVE (NEGATIVE)
[2018-05-25 17:25] LABS: HEPATITIS C ANTIBODY NEGATIVE (NEGATIVE)
[2018-05-26] MEDS: Insulin Lispro (humaLOG) 100 Units/ml Inj SC SCH ×4 (00:17→16:56)
--- NOTE | 2018-05-26 02:15 | CON ---
DATE: 05/25/2018 INFECTIOUS DISEASE CONSULT HISTORY OF PRESENT ILLNESS: This is a 62-year-old male with history of irregular heart beat, atrial fibrillation, CVA in the past, diabetes, HTN, hyperlipidemia, and end-stage renal disease, on dialysis 3 days a week going, was brought by his daughter who said he has been having visual and auditory hallucinations several days and then became unresponsive. Brought to the ER on code stroke and began to recover during this period. As per the daughter, he is bed-bound, and his mental status has some ability to verbalize. No medication changes. No recent infection that she is aware of. PAST MEDICAL HISTORY: Includes, once again, atrial fibrillation, CVA, diabetes, hypertension, and end-stage renal disease. PAST SURGICAL HISTORY: He has got hernia repair and a pacemaker. SOCIAL HISTORY: He lives with his family. No tobacco. No ethanol. PHYSICAL EXAMINATION: GENERAL: He is nonverbal. HEENT: Atraumatic, normocephalic. NECK: Supple. RESPIRATORY: Clear. HEART: Irregular. ABDOMEN: Soft. Positive bowel sounds. EXTREMITIES: No C, C, E. LABORATORY AND IMAGING DATA: Chest x-ray: Interval airspace disease, right base; and potential elevation of right hemidiaphragm, stable; cardiomegaly. We would follow this up, especially the possible elevation of the right hemidiaphragm. Might consider a CT scan of the chest and abdomen, rule out any infectious process as there is limited findings in regards to infection. Microbiology is negative so far. His creatinine is 7.6. White count has been 6.3, 5.1, 6, 6, 6.9, and 10. Hemoglobin is 10.3. There is a left shift noted. At the present time, there is no specific infection noted. Possibility of aspiration is noted and would just treat with vancomycin post dialysis, and I have added Zosyn and adjusted renal dose. Roberto Parada MD MTDD
--- NOTE | 2018-05-26 05:12 | PN ---
DATE: 05/25/2018 LOCATION: The patient in ICU, bed 421. TIME SPENT: 35 minutes. SUBJECTIVE: The patient is seen and evaluated at the bedside. A 62-year-old male with medical history significant for diabetes mellitus type 2, hypertension, hyperlipidemia, end-stage renal disease, on hemodialysis three times a week, prior CVA and atrial fibrillation, admitted with change in the mental status, status post [employer] on 05/24/2018, reported runs of V-tach, transferred to ICU overnight, uneventful, normotensive, afebrile. Telemetry, sinus paced rhythm, controlled. This morning, status post hemodialysis. Remains alert, awake, follows commands appropriate. Opens eyes. Denies shortness of breath or chest pain. No palpitation. No abdominal discomfort. Has not had a bowel movement. The patient hardly makes urine. PHYSICAL EXAMINATION: VITAL SIGNS: Temperature 97.7, heart rate of 63, blood pressure 151/63, mean arterial pressure 92. HEAD, EYES, EARS, NOSE, AND THROAT: Pupils are reactive. Conjunctivae pale. Sclerae are white. NECK: Supple. Trachea is central. CHEST: Bilateral breath sounds. Pacemaker present. ABDOMEN: Bowel sounds present. Soft. EXTREMITIES: No palpable cord. DP reduced in intensity. NEUROLOGIC: Alert, awake but slow to respond. CURRENT MEDICATIONS: Include amiodarone 400 mg p.o. daily, aspirin 81 mg p.o. daily, aspirin 300 mg per rectum daily if not taken by mouth, Plavix 75 mg daily, D5 half normal 80 mL/h, heparin 5000 units subcu every 8 hours, Keppra 500 mL IV every 12 hours, Lopressor 25 mg p.o. b.i.d. LABORATORY DATA: WBC 10, hemoglobin 10.3, hematocrit 32.7, platelet count 255, neutrophils 87, lymphocytes 6.6, monocytes 4.8, PT 12.6, INR 1.1, PTT 31.4. SMA-7: Sodium 149, potassium 5.1, chloride 106, CO2 of 23, blood urea nitrogen 41, creatinine 7.6, random glucose 77, calcium 8.6, magnesium 2. Total bilirubin 0.8, AST 14, ALT 19, total protein 6.7, albumin of 3.8. Free T4 of 1.8, TSH 0.93. Microbiology, none reported. Chest x-ray: Interval airspace disease, right base, potential elevation of right hemidiaphragm. Carotid artery ultrasound, right ICA less than 50% stenosis, left ICA less than 50% stenosis. Echocardiogram: Left ventricular systolic function mildly impaired. EF estimated 40% to 45%, left ventricular end-diastolic pressure mildly elevated, mitral regurgitation is trace to mild. CT head: No definite acute intracranial findings, age-related neurodegenerative findings appear age appropriate, bilateral dilated perivascular space of chronic lacune. IMPRESSION: 1. Neurology: Metabolic encephalopathy, resolving with dialysis, toxic encephalopathy secondary to medication given for the procedure, resolving. 2. Pulmonary: Right airspace disease, probably fluid overload versus chronic right pleural effusion, stable. 3. Cardiac: Status post permanent pacemaker insertion with pacemaker mediated and possible nonpacer mediated wide complex tachycardia, awaiting interrogation by the [employer]. 4. Hematology: Anemia of chronic disease, stable. 5. Chronic renal failure, on hemodialysis. 6. Continue deep venous thrombosis and gastrointestinal prophylaxis. Chris Olivarez MD
[2018-05-26 05:21] LABS: BASO % 0.3 % (0.0-2.0); EOS # 0.2 K/uL (0.0-0.7); EOS % 3.3 % (0.0-4.0); HEMOGLOBIN 9.8 g/dL (12.0-18.0); LYMPH # 1.1 K/uL (1.0-4.3); MEAN CELL VOLUME 89.2 fl (80.0-94.0); MEAN CORPUSCULAR HEMOGLOBIN 28.4 pg (27.0-31.0); MEAN CORPUSCULAR HGB CONC 31.9 g/dL (33.0-37.0); MEAN PLATELET VOLUME 8.8 fl (7.2-11.7); MONO # 0.5 K/uL (0.0-0.8); MONO % 7.1 % (0.0-10.0); NEUT # 4.7 K/uL (1.8-7.0); NEUT % 72.3 % (50.0-75.0); RBC 3.43 Mil/uL (4.40-5.90); RED CELL DISTRIBUTION WIDTH 17.5 % (11.5-14.5); WHITE BLOOD COUNT 6.6 K/uL (4.8-10.8)
[2018-05-26] MEDS: levETIRAcetam 500 MG in Sodium Chloride 0.9% 100 ML IVPB SCH ×2 (08:29→20:13)
--- NOTE | 2018-05-26 11:38 | CP.PCM.PN ---
Subjective - Date & Time of Evaluation Date of Evaluation: 05/26/18 Time of Evaluation: 11:37 - Subjective Subjective: patient M bed given very little verbalizing Family at the bedside Nausea no vomiting Vital sign noted Objective - Vital Signs/Intake and Output Vital Signs (last 24 hours): Temp Pulse Resp BP Pulse Ox 97.9 F 78 18 120/62 98 05/26/18 08:00 05/26/18 11:21 05/26/18 11:21 05/26/18 11:21 05/26/18 11:21 Intake and Output: 05/26/18 05/26/18 06:59 18:59 Intake Total 1260 588 Balance 1260 588 - Medications Medications: Current Medications Acetaminophen (Tylenol 650 Mg Supp) 650 mg NM Q6 PRN PRN Reason: Fever >100.4 F Last Admin: 05/25/18 05:32 Dose: 650 mg Amiodarone HCl (Cordarone) 400 mg PO DAILY [facility] Last Admin: 05/26/18 08:28 Dose: 400 mg Aspirin (Ecotrin) 81 mg PO DAILY [facility] Last Admin: 05/26/18 08:28 Dose: 81 mg Aspirin (Aspirin Supp) 300 mg NM DAILY [facility] Last Admin: 05/26/18 09:14 Dose: Not Given Clopidogrel Bisulfate (Plavix) 75 mg PO DAILY [facility] Last Admin: 05/26/18 08:27 Dose: 75 mg Heparin Sodium (Porcine) (Heparin) 5,000 units SC Q8 [facility]AR[facility]IT PRN Reason: Protocol Last Admin: 05/26/18 08:29 Dose: 5,000 units Sodium Chloride (Sodium Chloride 0.9%) 1,000 mls @ 100 mls/hr IV .Q10H [facility] Last Admin: 05/25/18 00:52 Dose: 100 mls/hr Levetiracetam 500 mg/ Sodium (Chloride) 105 mls @ 210 mls/hr IVPB Q12 [facility] Last Admin: 05/26/18 08:29 Dose: 210 mls/hr Dextrose/Sodium Chloride (Dextrose 5%-0.45% Ns 500 Ml) 1,000 mls @ 80 mls/hr IV .[id number] [facility] Stop: 05/26/18 12:32 Last Admin: 05/26/18 05:43 Dose: 80 mls/hr Piperacillin Sod/Tazobactam (Sod 2.25 gm/ Sodium Chloride) 100 mls @ 100 mls/ hr IVPB Q12 [facility]IT PRN Reason: Protocol Last Admin: 05/26/18 09:05 Dose: 100 mls/hr Insulin Human Lispro (Humalog) 0 units SC Q6H [facility]ARJIT PRN Reason: Protocol Last Admin: 05/26/18 11:33 Dose: Not Given Metoprolol Tartrate (Lopressor) 25 mg PO BID [facility] Last Admin: 05/26/18 08:27 Dose: 25 mg - Labs Labs: 05/26/18 04:37 05/26/18 08:00 PT 12.6 Seconds (9.8-13.1) 05/24/18 15:30 INR 1.1 (0.9-1.2) 05/24/18 15:30 APTT 31.4 Seconds (25.6-37.1) 05/24/18 15:30 - Constitutional Appears: No Acute Distress - ENT Exam ENT Exam: Mucous Membranes Moist - Neck Exam Neck Exam: absent: Lymphadenopathy - Respiratory Exam Respiratory Exam: NORMAL BREATHING PATTERN. absent: Chest Wall Tenderness - Cardiovascular Exam Cardiovascular Exam: absent: Gallop, JVD, Rubs - GI/Abdominal Exam GI & Abdominal Exam: Soft, Normal Bowel Sounds - Extremities Exam Extremities Exam: absent: Calf Tenderness - Back Exam Back Exam: absent: CVA tenderness (L), CVA tenderness (R) - Neurological Exam Neurological Exam: Altered - Psychiatric Exam Psychiatric exam: Flat Affect - Skin Skin Exam: absent: Cyanosis Assessment and Plan (1) A-fib Status: Acute (2) Altered mental status Status: Acute (3) DM2 (diabetes mellitus, type 2) Status: Acute (4) ESRD (end stage renal disease) on dialysis Assessment & Plan: fib, prior CVA, DM2, HTN, HLD, and ESRD on // patient completed his hemodialysis yesterday and scheduled for TTS Patient is given very little verbalizing rule out sepsis patient receiving antibiotics. Hypertension Status: Acute (5) HTN (hypertension) Status: Acute
--- NOTE | 2018-05-26 16:00 | CP.PCM.PN ---
Subjective - Date & Time of Evaluation Date of Evaluation: 05/26/18 Time of Evaluation: 13:45 - Subjective Subjective: Pt is afebrile today sl cough sl feels weak oriented to person and place denies PORTILLO no SOB no CP follows commands Objective - Vital Signs/Intake and Output Vital Signs (last 24 hours): Temp Pulse Resp BP Pulse Ox 97.8 F 61 24 147/61 100 05/26/18 12:00 05/26/18 13:00 05/26/18 13:00 05/26/18 13:00 05/26/18 13:00 Intake and Output: 05/26/18 05/26/18 06:59 18:59 Intake Total 1260 828 Balance 1260 828 - Medications Medications: Current Medications Acetaminophen (Tylenol 650 Mg Supp) 650 mg [place] Q6 PRN PRN Reason: Fever >100.4 F Last Admin: 05/25/18 05:32 Dose: 650 mg Amiodarone HCl (Cordarone) 400 mg PO DAILY [facility] Last Admin: 05/26/18 08:28 Dose: 400 mg Aspirin (Ecotrin) 81 mg PO DAILY [facility] Last Admin: 05/26/18 08:28 Dose: 81 mg Clopidogrel Bisulfate (Plavix) 75 mg PO DAILY [facility] Last Admin: 05/26/18 08:27 Dose: 75 mg Heparin Sodium (Porcine) (Heparin) 5,000 units SC Q8 AMARJIT PRN Reason: Protocol Last Admin: 05/26/18 08:29 Dose: 5,000 units Sodium Chloride (Sodium Chloride 0.9%) 1,000 mls @ 100 mls/hr IV .Q10H [facility] Last Admin: 05/25/18 00:52 Dose: 100 mls/hr Levetiracetam 500 mg/ Sodium (Chloride) 105 mls @ 210 mls/hr IVPB Q12 [facility] Last Admin: 05/26/18 08:29 Dose: 210 mls/hr Piperacillin Sod/Tazobactam (Sod 2.25 gm/ Sodium Chloride) 100 mls @ 100 mls/ hr IVPB Q12 [facility] PRN Reason: Protocol Last Admin: 05/26/18 09:05 Dose: 100 mls/hr Insulin Human Lispro (Humalog) 0 units SC Q6H [facility] PRN Reason: Protocol Last Admin: 05/26/18 11:33 Dose: Not Given Metoprolol Tartrate (Lopressor) 25 mg PO BID [facility] Last Admin: 05/26/18 08:27 Dose: 25 mg - Labs Labs: 05/26/18 04:37 05/26/18 08:00 PT 12.6 Seconds (9.8-13.1) 05/24/18 15:30 INR 1.1 (0.9-1.2) 05/24/18 15:30 APTT 31.4 Seconds (25.6-37.1) 05/24/18 15:30 - Constitutional Appears: Chronically Ill, more awake today, answers questions appropriately - Head Exam Head Exam: NORMAL INSPECTION, NORMOCEPHALIC - ENT Exam ENT Exam: Mucous Membranes Dry, Normal External Ear Exam - Neck Exam Neck Exam: absent: Meningismus - Respiratory Exam Respiratory Exam: Rhonchi, NORMAL BREATHING PATTERN. absent: Respiratory Distress - Cardiovascular Exam Cardiovascular Exam: REGULAR RHYTHM, +S1, +S2 - GI/Abdominal Exam GI & Abdominal Exam: Soft, Normal Bowel Sounds - Extremities Exam Extremities Exam: Normal Capillary Refill, Pedal Edema - Neurological Exam Additional comments: more awake today opens eyes to verbal stimuli answers questions appropriately follows simple commands - Skin Skin Exam: Dry, Normal Color, Warm Assessment and Plan - Assessment and Plan (Free Text) Assessment: 62 y/o male with Hx of A fib, prior CVA, DM2, HTN, HLD, Dementia and ESRD on HD T// who comes in with hallucinations and mental status changes. 05/24: noted wide complex tachycardia on Tele monitoring 1. Acute Change in mental Status likely sec to Seizures and also due to Metabolic Encephalopathy r/o CVA -ICU monitoring -Serial trops : negative so far -Echo: mild syst dysfxn, EF 40% -Carotid dopplers: no stenosis -EEG: slowing frontal, temporal -- CT of head , CTA of head /Neck : neg - unable to do MRI due to presence of Pacemaker -cont ASA -Keppra 1000 loading dose , then 500 mg IV BID ( pt noted to have some twitching) -Permissive HTN -Neuro consult (Dr Marie) -PT/OT consult - LDL =57 - no statin - Passed swallow eval - tolerating diet 2. Wide Complex tachycardia likely Pacemaker Mediated Tachycardia - Amiodarone x 1 dose given - Mg normal -Cardio consulted- discussed case with Dr Vallejo - rec Pacemaker Interrogation -[employer] came to eval Pacemaker - Dr Tobias consulted 3) DM type II -SSI and accuchecks 4) A fib , paroxysmal s/p Pacemaker Pt has Pacemaker -Metoprolol 25 mg bid 5) ESRD on HD -Renal consult - Dr Trujillo - HD: T Th S 6. Hx of CVA cont ASA, no statin LDL 57 7. HTN allow permissive HTN low dose Metoprolol 8. Fever sec to Right Basal Pneumonia ( POA) - Panculture -Vanco x 1 dose given after dialysis -rpt CXR: R base airspace dis - ID consulted - discussed case with DR Santiago - DR santiago rec IV Zosyn for now DVT PPx -SQ heparin
--- NOTE | 2018-05-26 16:44 | PQF ---
PROVIDER RESPONSE TEXT: Acute Change in mental status likely sec to Seizure and Global Ischemia REVIEWER QUERY TEXT: Documentation Clarification Your help is requested in clarifying the following clinical documentation. If you can please further specify in the medical record and discharge summary if the following diagnoses are ruled in or ruled AFTER workup or unable to determine. Diagnoses: Acute Change in mental Status ? Toxic Metabolic Encephalopathy r/o Seizure , r/o CVA The patient's Clinical Indicators include: Admitted with visual and auditory hallucinations x several days and had an episode of unresponsivenes s day of admission. CPDE STROKE called but began to recover during the assessment. Tele- Medicine Consult Neurologist: AMS likely due to tonic/generalized seizure and possible global i schemia. PN: Acute Change in mental Status ? Toxic Metabolic Encephalopathy r/o Seizure , r/o CVA Query created by: Whitley Akhtar on 05/26/2018 8:56 AM Electronically signed by: Rachel Mckeon MD 05/26/2018 4:42 PM
--- NOTE | 2018-05-26 18:49 | CP.CCUPN ---
CCU Subjective - Physician Review Subjective (Free Text): Reported to have VT yesterday, no strips available for review. Remains in V- paced rhythm variable from 60 73 at times, no other distress noted, MINIMAL interactivIty when family is at the bedside. No other TUCKER or malignant ectopy noted. No seizures reported. Underwent HD yesterday with 1500ml removed. On IVFs at 80ml/hr. Other vitals and I/O's reviewed. No fever spikes nor any low grade temps last 24H. BP range for systolic has been 130-150's today, SPO2 100% on RA. ROS: No other pertinent negs or positives on 10+ system review PMSFH: All other Nursing and physician documentation reviewed to date; no new pertinent info noted relevant to current medical problems. EXAM- HEENT: no icterus, no gaze preference, Pupils 3 mm and reactive. NECK: No JVD, supple, carotids equal upstroke bilat/no bruits CHEST: decreased BS bases, no wheezes audible HEART: regular, distant, S1S2, no rubs or murmurs ABD: soft, mild-mod distention, no tympany, no palp tenderness, BS hypoactive, + fluid wave. EXT: no peripheral/ digital cyanosis, no calf tenderness or palpable cords, distal pulses intact and symmetrical. LUE AVF with +bruit/ +thrill. NEURO: no focal motor deficits SKIN: no rashes, warm and dry. LABS: WBC= 6.6 HGB= 9.8 PLTs= 197K Xk=502 K= 4.5 CL=99 HCO3= 26 BUN/Cr= 27/5.3 BS= 117 CXR: (my interp)- Right basilar atelectasis and small effusion, no gross consolidation. IMPRESSION / MAJOR PROBLEMS NOW: 1. AMS with LOC/Unresponsiveness; r/o Seizure disorder, doubt metabolic encephalopathy; s/p Code Stroke eval: non-TPA candidate. 2. ESRD on HD 3. Dehydration PLAN: 1. AEDs started by Neurology. EEG results suggesting a focus of seizure activity over the left cerebral hemisphere. 2. Repeat Brain imaging as per Neurology. 3. Routine scheduled HD, would stop IVFs unless goal for HD is extra fluid removal. Hypernatremia and Hyperkalemia resolved. 4. Cardio EPS eval pending. Repeat 12 lead EKG today. CCU Objective - Vital Signs / Intake & Output Vital Signs (Last 4 hours): Vital Signs Temp Pulse Resp BP Pulse Ox 05/26/18 18:00 60 17 131/64 99 05/26/18 17:00 60 18 137/58 L 100 05/26/18 16:53 62 158/69 H 05/26/18 16:00 98 F 60 16 138/59 L 98 05/26/18 15:00 61 18 136/56 L 95 Intake and Output (Last 8hrs): Intake & Output 05/26/18 05/26/18 05/26/18 06:59 14:59 22:59 Intake Total 720 828 220 Balance 720 828 220 Weight 170 lb Intake: IV 720 208 Intake, Piggyback 150 Oral 0 240 220 Tube Feeding 0 130 Free Water Flush 100
[2018-05-27] MEDS: Insulin Lispro (humaLOG) 100 Units/ml Inj SC SCH ×5 (00:02→23:13)
[2018-05-27 05:31] LABS: HEMOGLOBIN 9.7 g/dL (12.0-18.0); MEAN CELL VOLUME 87.2 fl (80.0-94.0); MEAN CORPUSCULAR HEMOGLOBIN 28.1 pg (27.0-31.0); MEAN CORPUSCULAR HGB CONC 32.2 g/dL (33.0-37.0); RBC 3.45 Mil/uL (4.40-5.90); RED CELL DISTRIBUTION WIDTH 17.6 % (11.5-14.5); WHITE BLOOD COUNT 5.3 K/uL (4.8-10.8)
[2018-05-27 05:46] LABS: CALCIUM 8.9 mg/dL (8.4-10.2)
[2018-05-27] MEDS: levETIRAcetam 500 MG in Sodium Chloride 0.9% 100 ML IVPB SCH ×2 (08:26→21:28)
--- NOTE | 2018-05-27 09:29 | CP.PCM.PN ---
Subjective - Date & Time of Evaluation Date of Evaluation: 05/27/18 Time of Evaluation: 09:27 - Subjective Subjective: dialysis note He was seen on hemodialysis now. Patient sitting up in bed Patient has been fed by the nursing executive Vital signs stable and noted with blood pressure about 134/ 86 patient is not verbalizing Objective - Vital Signs/Intake and Output Vital Signs (last 24 hours): Temp Pulse Resp BP Pulse Ox 98.5 F 61 14 142/59 L 99 05/27/18 08:00 05/27/18 08:23 05/27/18 08:00 05/27/18 08:23 05/27/18 08:00 Intake and Output: 05/27/18 05/27/18 06:59 18:59 Intake Total 300 Balance 300 - Medications Medications: Current Medications Acetaminophen (Tylenol 650 Mg Supp) 650 mg [place] Q6 PRN PRN Reason: Fever >100.4 F Last Admin: 05/25/18 05:32 Dose: 650 mg Amiodarone HCl (Cordarone) 400 mg PO DAILY [facility] Last Admin: 05/27/18 08:23 Dose: 400 mg Aspirin (Ecotrin) 81 mg PO DAILY [facility] Last Admin: 05/27/18 08:22 Dose: 81 mg Clopidogrel Bisulfate (Plavix) 75 mg PO DAILY [facility] Last Admin: 05/27/18 08:22 Dose: 75 mg Heparin Sodium (Porcine) (Heparin) 5,000 units SC Q8 AMARJIT PRN Reason: Protocol Last Admin: 05/27/18 08:24 Dose: 5,000 units Sodium Chloride (Sodium Chloride 0.9%) 1,000 mls @ 100 mls/hr IV .Q10H [facility] Last Admin: 05/25/18 00:52 Dose: 100 mls/hr Levetiracetam 500 mg/ Sodium (Chloride) 105 mls @ 210 mls/hr IVPB Q12 [facility] Last Admin: 05/27/18 08:26 Dose: 210 mls/hr Piperacillin Sod/Tazobactam (Sod 2.25 gm/ Sodium Chloride) 100 mls @ 100 mls/ hr IVPB Q12 [facility]IT PRN Reason: Protocol Last Admin: 05/26/18 20:14 Dose: 100 mls/hr Insulin Human Lispro (Humalog) 0 units SC Q6H [facility]ARJIT PRN Reason: Protocol Last Admin: 05/27/18 05:59 Dose: Not Given Metoprolol Tartrate (Lopressor) 25 mg PO BID [facility] Last Admin: 05/27/18 08:22 Dose: 25 mg - Labs Labs: 05/27/18 04:41 05/27/18 04:41 PT 12.6 Seconds (9.8-13.1) 05/24/18 15:30 INR 1.1 (0.9-1.2) 05/24/18 15:30 APTT 31.4 Seconds (25.6-37.1) 05/24/18 15:30 - Constitutional Appears: No Acute Distress - ENT Exam ENT Exam: Mucous Membranes Moist - Neck Exam Neck Exam: absent: Lymphadenopathy - Respiratory Exam Respiratory Exam: NORMAL BREATHING PATTERN. absent: Chest Wall Tenderness - GI/Abdominal Exam GI & Abdominal Exam: Soft, Normal Bowel Sounds - Extremities Exam Extremities Exam: absent: Calf Tenderness - Back Exam Back Exam: absent: CVA tenderness (L), CVA tenderness (R) - Neurological Exam Neurological Exam: Altered - Psychiatric Exam Psychiatric exam: Flat Affect - Skin Skin Exam: absent: Cyanosis Assessment and Plan (1) A-fib Status: Acute (2) Altered mental status Status: Acute (3) DM2 (diabetes mellitus, type 2) Status: Acute (4) ESRD (end stage renal disease) on dialysis Assessment & Plan: end stage renal disease. Patient is receiving hemodialysis now. I discussed the order with the dialysis nurse at the bedside Sodium bath 138 Potassium bath 2 mEq Bicarbonate bath 34 Ultrafiltration somewhere between 6664-2003 mL Patient is tolerating The rest of the management as per primary team in intensive care unit Status: Acute (5) HTN (hypertension) Status: Acute
--- NOTE | 2018-05-27 15:54 | CP.PCM.PN ---
Subjective - Date & Time of Evaluation Date of Evaluation: 05/27/18 Time of Evaluation: 09:00 - Subjective Subjective: Patient was seen and examined at bedside. Received hemodialysis today. Following commands, still feels weak. Otherwise no new changes or overnight events. No SOB, No CP Objective - Vital Signs/Intake and Output Vital Signs (last 24 hours): Temp Pulse Resp BP Pulse Ox 97.6 F 60 21 155/65 H 99 05/27/18 15:38 05/27/18 15:38 05/27/18 15:38 05/27/18 15:38 05/27/18 15:38 Intake and Output: 05/27/18 05/27/18 06:59 18:59 Intake Total 300 680 Output Total 2000 Balance 300 -1320 - Medications Medications: Current Medications Acetaminophen (Tylenol 650 Mg Supp) 650 mg [place] Q6 PRN PRN Reason: Fever >100.4 F Last Admin: 05/25/18 05:32 Dose: 650 mg Aspirin (Ecotrin) 81 mg PO DAILY [facility] Last Admin: 05/27/18 08:22 Dose: 81 mg Clopidogrel Bisulfate (Plavix) 75 mg PO DAILY [facility] Last Admin: 05/27/18 08:22 Dose: 75 mg Heparin Sodium (Porcine) (Heparin) 5,000 units SC Q8 [facility]AR[facility]IT PRN Reason: Protocol Last Admin: 05/27/18 08:24 Dose: 5,000 units Sodium Chloride (Sodium Chloride 0.9%) 1,000 mls @ 100 mls/hr IV .Q10H [facility] Last Admin: 05/25/18 00:52 Dose: 100 mls/hr Levetiracetam 500 mg/ Sodium (Chloride) 105 mls @ 210 mls/hr IVPB Q12 [facility] Last Admin: 05/27/18 08:26 Dose: 210 mls/hr Piperacillin Sod/Tazobactam (Sod 2.25 gm/ Sodium Chloride) 100 mls @ 100 mls/ hr IVPB Q12 [facility] PRN Reason: Protocol Last Admin: 05/26/18 20:14 Dose: 100 mls/hr Insulin Human Lispro (Humalog) 0 units SC Q6H [facility] PRN Reason: Protocol Last Admin: 05/27/18 05:59 Dose: Not Given Metoprolol Tartrate (Lopressor) 25 mg PO BID [facility] Last Admin: 05/27/18 08:22 Dose: 25 mg - Labs Labs: 05/27/18 04:41 05/27/18 04:41 PT 12.6 Seconds (9.8-13.1) 05/24/18 15:30 INR 1.1 (0.9-1.2) 05/24/18 15:30 APTT 31.4 Seconds (25.6-37.1) 05/24/18 15:30 - Additional Findings Additional findings: Physical exam: Constitutional- lethargic, weak, chronically ill appearing Head- NCAT, PERRL Eye- PERRL, EOMI ENT- normal exam, MMM. Neck- normal inspection, supple, no JVD Respiratory- CTAB, no wheezes rales rhonchi Cardiovascular- RRR, +S1, +S2 no MRG GI/Abdominal- normal bowel sounds, soft, no mass, no hsm Skin- warm, dry Extremities Exam- normal capillary refill, normal inspection Neurological Exam- alert, awake, oriented Psych- normal mood, normal affect Assessment and Plan - Assessment and Plan (Free Text) Plan: 62 y/o male with Hx of A fib, prior CVA, DM2, HTN, HLD, Dementia and ESRD on HD T// who comes in with hallucinations and mental status changes. 05/24: noted wide complex tachycardia on Tele monitoring 1. Acute Change in mental Status likely sec to Seizures and also due to Metabolic Encephalopathy r/o CVA -ICU monitoring -Serial trops : negative so far -Echo: mild syst dysfxn, EF 40% -Carotid dopplers: no stenosis -EEG: slowing frontal, temporal -- CT of head , CTA of head /Neck : neg - unable to do MRI due to presence of Pacemaker -cont ASA -Keppra 1000 loading dose , then 500 mg IV BID ( pt noted to have some twitching) -Permissive HTN -Neuro consult (Dr Marie) -PT/OT consult - LDL =57 - no statin - Passed swallow eval - tolerating diet 2. Wide Complex tachycardia likely Pacemaker Mediated Tachycardia - Amiodarone x 1 dose given - Mg normal -Cardio consulted- discussed case with Dr Vallejo - rec Pacemaker Interrogation -[employer] came to eval Pacemaker - Dr Tobias consulted 3) DM type II -SSI and accuchecks 4) A fib , paroxysmal s/p Pacemaker Pt has Pacemaker -Metoprolol 25 mg bid 5) ESRD on HD -Renal consult - Dr Trujillo - HD: T Th S 6. Hx of CVA cont ASA, no statin LDL 57 7. HTN allow permissive HTN low dose Metoprolol 8. Fever sec to Right Basal Pneumonia ( POA) - Panculture -Vanco x 1 dose given after dialysis -rpt CXR: R base airspace dis - ID consulted - discussed case with DR Santiago - DR santiago rec IV Zosyn for now DVT PPx -SQ heparin
--- NOTE | 2018-05-28 01:32 | CP.PCM.PN ---
Subjective - Date & Time of Evaluation Date of Evaluation: 05/27/18 Time of Evaluation: 16:45 - Subjective Subjective: PT NON VERBAL. NO FURTHER TACHY ARRYTHMIA Objective - Vital Signs/Intake and Output Vital Signs (last 24 hours): Temp Pulse Resp BP Pulse Ox 97.6 F 72 14 150/59 L 99 05/28/18 00:09 05/27/18 20:12 05/27/18 20:12 05/27/18 20:12 05/27/18 20:12 Intake and Output: 05/27/18 05/28/18 18:59 06:59 Intake Total 680 Output Total 1999 Balance -1320 - Medications Medications: Current Medications Acetaminophen (Tylenol 650 Mg Supp) 650 mg [place] Q6 PRN PRN Reason: Fever >100.4 F Last Admin: 05/25/18 05:32 Dose: 650 mg Aspirin (Ecotrin) 81 mg PO DAILY [facility] Last Admin: 05/27/18 08:22 Dose: 81 mg Clopidogrel Bisulfate (Plavix) 75 mg PO DAILY [facility] Last Admin: 05/27/18 08:22 Dose: 75 mg Heparin Sodium (Porcine) (Heparin) 5,000 units SC Q8 [facility] PRN Reason: Protocol Last Admin: 05/27/18 16:25 Dose: 5,000 units Sodium Chloride (Sodium Chloride 0.9%) 1,000 mls @ 100 mls/hr IV .Q10H [facility] Last Admin: 05/25/18 00:52 Dose: 100 mls/hr Levetiracetam 500 mg/ Sodium (Chloride) 105 mls @ 210 mls/hr IVPB Q12 [facility] Last Admin: 05/27/18 21:28 Dose: 210 mls/hr Piperacillin Sod/Tazobactam (Sod 2.25 gm/ Sodium Chloride) 100 mls @ 100 mls/ hr IVPB Q12 [facility] PRN Reason: Protocol Last Admin: 05/27/18 21:28 Dose: 100 mls/hr Insulin Human Lispro (Humalog) 0 units SC Q6H [facility] PRN Reason: Protocol Last Admin: 05/27/18 23:13 Dose: Not Given Metoprolol Tartrate (Lopressor) 25 mg PO BID [facility] Last Admin: 05/27/18 16:25 Dose: 25 mg - Labs Labs: 05/27/18 04:41 05/27/18 04:41 PT 12.6 Seconds (9.8-13.1) 05/24/18 15:30 INR 1.1 (0.9-1.2) 05/24/18 15:30 APTT 31.4 Seconds (25.6-37.1) 05/24/18 15:30 - Constitutional Appears: Non-toxic - Head Exam Head Exam: ATRAUMATIC, NORMAL INSPECTION, NORMOCEPHALIC - Eye Exam Eye Exam: EOMI, Normal appearance, PERRL. absent: Conjunctival injection, Nystagmus, Periorbital swelling, Periorbital tenderness, Scleral icterus Pupil Exam: NORMAL ACCOMODATION, PERRL - ENT Exam ENT Exam: Mucous Membranes Moist, Normal Exam. absent: Mucous Membranes Dry, Normal External Ear Exam, Normal Oropharynx, TM's Normal Bilaterally - Neck Exam Neck Exam: Full ROM, Normal Inspection - Respiratory Exam Respiratory Exam: Clear to Ausculation Bilateral, NORMAL BREATHING PATTERN. absent: Accessory Muscle Use, Chest Wall Tenderness, Decreased Breath Sounds, Prolonged Expiratory Phase, Rales, Rhonchi, Wheezes, Respiratory Distress, Stridor - Cardiovascular Exam Cardiovascular Exam: REGULAR RHYTHM, +S1, +S2, Murmur. absent: Bradycardia, Tachycardia, Clicks, Diastolic murmur, Gallop, Irregular Rhythm, JVD, RRR, Rubs , +S4 - GI/Abdominal Exam GI & Abdominal Exam: Soft, Normal Bowel Sounds. absent: Bruit, Distended, Firm , Guarding, Rigid, Tenderness, Diminished Bowel Sounds, Hernia, Hyperactive Bowel Sounds, Hypoactive Bowel Sounds, Organomegaly, Pulsatile Mass, Rebound, Mass - Rectal Exam Rectal Exam: Deferred - Extremities Exam Extremities Exam: Full ROM, Normal Capillary Refill, Normal Inspection. absent : Calf Tenderness, Joint Swelling, Pedal Edema, Tenderness - Back Exam Back Exam: NORMAL INSPECTION. absent: CVA tenderness (L), CVA tenderness (R), Full ROM, muscle spasm, paraspinal tenderness, rash noted, tenderness, vertebral tenderness - Neurological Exam Neurological Exam: Alert, Awake - Psychiatric Exam Psychiatric exam: Flat Affect, Normal Mood. absent: Agitated, Anxious, Depressed, Homicidal Ideation, Manic, Normal Affect, Suicidal Ideation - Skin Skin Exam: Dry, Intact, Normal Color, Warm. absent: Abrasion, Cyanosis, Diaphoretic, Erythema, Mottled, Pallor, Pallor, Petechiae, Rash, Urticaria, Vesicles Assessment and Plan (1) Wide-complex tachycardia Status: Acute (2) PMT (pacemaker-mediated tachycardia) Status: Acute (3) A-fib Status: Acute (4) Altered mental status Status: Acute (5) HTN (hypertension) Status: Acute (6) ESRD (end stage renal disease) on dialysis Status: Acute (7) CVA, old, aphasia Status: Acute (8) LVH (left ventricular hypertrophy) Status: Acute (9) Ejection fraction < 50% Status: Acute (10) Diastolic dysfunction Status: Acute - Assessment and Plan (Free Text) Plan: PTS ARRYTHMIA IS ATRIAL TACH WITH PACEMAKER TRACKING MAY D/C AMIODARONE STABLE CARDIAC MARSH FOR TELE CONT CURRENT MEDS TITRATE BB FOR HR CONTROL
[2018-05-28 05:41] LABS: MEAN CELL VOLUME 87.5 fl (80.0-94.0); MEAN CORPUSCULAR HEMOGLOBIN 27.9 pg (27.0-31.0); MEAN CORPUSCULAR HGB CONC 31.9 g/dL (33.0-37.0); RBC 3.58 Mil/uL (4.40-5.90); RED CELL DISTRIBUTION WIDTH 17.6 % (11.5-14.5); WHITE BLOOD COUNT 4.6 K/uL (4.8-10.8)
[2018-05-28 05:57] LABS: ALB/GLOB RATIO 1.2 (1.0-2.1); ALBUMIN 3.7 g/dL (3.5-5.0); CALCIUM 9.2 mg/dL (8.4-10.2)
--- NOTE | 2018-05-28 07:20 | CON ---
DATE: 05/27/2018 INPATIENT ELECTROPHYSIOLOGY CONSULTATION The patient was seen in the ICU. REASON FOR EVALUATION: 1. Tachycardia. 2. Status post [employer] dual chamber permanent pacemaker. 3. Hypertension. REFERRING PHYSICIAN: Keli Vallejo DO HISTORY OF PRESENT ILLNESS: Mr. Jose Alejandro Joe is a 62-year-old male with past medical history significant for diabetes, hypertension, endstage renal disease, history of CVA, atrial fibrillation, and hemodialysis who presents to [facility] with altered mental status, thought to have runs of wide complex tachycardia, thought to be in ventricular tachycardia, and was transferred to the ICU for further evaluation and management. The patient has undergone ICU evaluation and also seen in cardiology consultation by Dr. Keli Vallejo. I have been asked to see him in regard to reported wide complex tachycardia as well as further evaluation of his permanent pacemaker. The patient is seen and examined today and appears to be in no apparent distress. and daughter are at the bedside, able to give supporting history. PAST MEDICAL HISTORY: As mentioned in the history of present illness. SURGICAL HISTORY: Significant for remote permanent pacemaker implantation, appears to be put in by Dr. Kojo Peterson, at [facility], also has a history of hernia repair. The patient had a PEG tube placement which is no longer in. REVIEW OF SYSTEMS: As per the electronic medical records. No records of fevers, chills, epistaxis, other drainage or bleeding to the nose or mouth. No reported chest pain, palpitations, or syncope. The patient's functional status is very poor. Family stays in bed. He is transported to dialysis three times a week. Other than that as per family, the patient is baseline, poorly verbal following his stroke. No cough, wheezes, or sputum production. No coffee ground emesis or nausea. No nocturia. The patient has the aforementioned lack of conditioning and poor functional status. CURRENT MEDICATIONS: Include acetaminophen 650 mg every 6 hours p.r.n. fever/pain, amiodarone 400 mg p.o. daily, aspirin 81 mg p.o. daily, Plavix 75 mg p.o. daily, levetiracetam infusion, insulin, metoprolol 25 mg b.i.d. LABORATORY DATA: On review of lab work, the patient has a white count of 5.3, H and H of 9.7 and 30.1, platelet count of 218. Potassium 5, creatinine is 7.3, glucose 161, calcium of 8.9. PHYSICAL EXAMINATION: VITAL SIGNS: Temperature is 96.8, blood pressure is 150/59, pulse rate is 72, and respirations are 14. GENERAL: The patient is a poorly responsive male, in no acute distress, appears comfortable. HEENT: Examination of head appears normocephalic and atraumatic. NECK: Supple. CHEST: Clear to auscultation bilaterally. CARDIOVASCULAR: Regular rate and rhythm. S1 and S2. There is a well seated left-sided permanent pacemaker which appears within normal limits. ABDOMEN: Soft, nontender, and nondistended. Positive bowel sounds. EXTREMITIES: No cyanosis, clubbing, or edema. There is no calf tenderness. The patient's device was interrogated. The patient has a [facility] device, which is an [employer] device, serial number [id number]. This was implanted on 07/10/2012. The patient has approximately four years to explant and pacing threshold, both in the atrium and the ventricle are within normal limits at 0.5 volts to 0.5 milliseconds and 0.8 volts to 0.5 milliseconds respectively. The patient has ventricular tachycardia detections on. The patient's ventricular outputs are recently programmed at 2.5 volts in both channels. The patient's T-wave amplitudes have been stable and has had R-wave amplitudes, and has had ventricular impedance. The histograms also appear within normal limits with minimal atrial pacing. Ventricular pacing is also present. The patient is atrially paced 43% of the time, ventricularly paced 23% of the time. Percentage of time in atrial fibrillation is less than 1% of the time. He does, however, have frequent PACs. The patient has had six episodes of non-sustained ventricular tachycardia, none of them occurring at the time of his reported events. ASSESSMENT AND PLAN: 1. Tachycardia. Telemetry strips have been reviewed. It appears to be A-sensed V-pacing. The patient does have a history of atrial fibrillation and appears to be maintained on amiodarone which will be continued. There has been no significant recurrence of atrial fibrillation on amiodarone. 2. [employer] dual-chamber permanent pacemaker, which appears to be normally functioning. The patient's family have been advised for routine followup on a six-month basis. The patient's device has been interrogated sparingly perhaps once every few years. 3. Hypertension, which appears to be in a process of being managed by the primary/cardiology team. 4. Wide complex tachycardia at 120 beats per minute which has been evaluated and appears to be in A-sensed ventricular pacing episode. There does not appear to be episodes of pacemaker-mediated tachycardia. Thank you for allowing me to participate in the care of this patient. Please do not hesitate to call if you have any questions in regard to his care. I have discussed the case with Dr. Keli Vallejo and my recommendations have been taken. Jonathan Tobias MD MTDD
[2018-05-28] MEDS: levETIRAcetam 500 MG in Sodium Chloride 0.9% 100 ML IVPB SCH ×2 (09:03→20:26)
--- NOTE | 2018-05-28 09:21 | CP.PCM.PN ---
Subjective - Date & Time of Evaluation Date of Evaluation: 05/28/18 Time of Evaluation: 09:19 - Subjective Subjective: patient M bed not in any acute distress. Verbalizing Reported that he is eating okay Objective - Vital Signs/Intake and Output Vital Signs (last 24 hours): Temp Pulse Resp BP Pulse Ox 97.6 F 60 24 159/67 H 100 05/28/18 08:00 05/28/18 09:03 05/28/18 08:00 05/28/18 09:03 05/28/18 08:00 Intake and Output: 05/28/18 05/28/18 06:59 18:59 Intake Total 2 Balance 2 - Medications Medications: Current Medications Acetaminophen (Tylenol 650 Mg Supp) 650 mg [place] Q6 PRN PRN Reason: Fever >100.4 F Last Admin: 05/25/18 05:32 Dose: 650 mg Aspirin (Ecotrin) 81 mg PO DAILY [facility] Last Admin: 05/28/18 09:02 Dose: 81 mg Clopidogrel Bisulfate (Plavix) 75 mg PO DAILY [facility] Last Admin: 05/28/18 09:04 Dose: 75 mg Heparin Sodium (Porcine) (Heparin) 5,000 units SC Q8 [facility] PRN Reason: Protocol Last Admin: 05/28/18 09:02 Dose: 5,000 units Sodium Chloride (Sodium Chloride 0.9%) 1,000 mls @ 100 mls/hr IV .Q10H [facility] Last Admin: 05/25/18 00:52 Dose: 100 mls/hr Levetiracetam 500 mg/ Sodium (Chloride) 105 mls @ 210 mls/hr IVPB Q12 [facility] Last Admin: 05/28/18 09:03 Dose: 210 mls/hr Piperacillin Sod/Tazobactam (Sod 2.25 gm/ Sodium Chloride) 100 mls @ 100 mls/ hr IVPB Q12 [facility] PRN Reason: Protocol Last Admin: 05/28/18 09:04 Dose: 100 mls/hr Insulin Human Lispro (Humalog) 0 units SC Q6H [facility] PRN Reason: Protocol Last Admin: 05/27/18 23:13 Dose: Not Given Metoprolol Tartrate (Lopressor) 25 mg PO BID [facility] Last Admin: 05/28/18 09:03 Dose: 25 mg - Labs Labs: 05/28/18 05:09 05/28/18 05:09 PT 12.6 Seconds (9.8-13.1) 05/24/18 15:30 INR 1.1 (0.9-1.2) 05/24/18 15:30 APTT 31.4 Seconds (25.6-37.1) 05/24/18 15:30 - Constitutional Appears: No Acute Distress - Eye Exam Eye Exam: Conjunctival injection - ENT Exam ENT Exam: Mucous Membranes Dry - Neck Exam Neck Exam: absent: Lymphadenopathy - Respiratory Exam Respiratory Exam: NORMAL BREATHING PATTERN. absent: Chest Wall Tenderness - Cardiovascular Exam Cardiovascular Exam: absent: JVD, Rubs - GI/Abdominal Exam GI & Abdominal Exam: Soft, Normal Bowel Sounds - Extremities Exam Extremities Exam: absent: Calf Tenderness - Back Exam Back Exam: absent: CVA tenderness (L), CVA tenderness (R) - Neurological Exam Neurological Exam: Altered - Psychiatric Exam Psychiatric exam: Flat Affect - Skin Skin Exam: absent: Cyanosis Assessment and Plan (1) A-fib Status: Acute (2) Altered mental status Status: Acute (3) DM2 (diabetes mellitus, type 2) Status: Acute (4) ESRD (end stage renal disease) on dialysis Assessment & Plan: end stage renal disease. Patient receiving dialysis TTS. Dementia Hypertension Cardiac arrhythmia as noted per cardiology hyperphosphatemia the last phosphorus 5.3 Status: Acute (5) HTN (hypertension) Status: Acute
[2018-05-28] MEDS: Insulin Lispro (humaLOG) 100 Units/ml Inj SC SCH ×3 (12:29→23:00)
--- NOTE | 2018-05-28 19:17 | CP.PCM.PN ---
Subjective - Date & Time of Evaluation Date of Evaluation: 05/28/18 Time of Evaluation: 19:16 - Subjective Subjective: PT WO COMPLAINTS OF CP. TELE SHOWS RECURRENT INAPPROPRIATE ATRIAL TACH WITH CONDUCTION VIA PM. Objective - Vital Signs/Intake and Output Vital Signs (last 24 hours): Temp Pulse Resp BP Pulse Ox 97.6 F 60 12 145/66 100 05/28/18 16:58 05/28/18 17:00 05/28/18 16:58 05/28/18 17:00 05/28/18 16:58 - Medications Medications: Current Medications Acetaminophen (Tylenol 650 Mg Supp) 650 mg [place] Q6 PRN PRN Reason: Fever >100.4 F Last Admin: 05/25/18 05:32 Dose: 650 mg Aspirin (Ecotrin) 81 mg PO DAILY [facility] Last Admin: 05/28/18 09:02 Dose: 81 mg Clopidogrel Bisulfate (Plavix) 75 mg PO DAILY [facility] Last Admin: 05/28/18 09:04 Dose: 75 mg Heparin Sodium (Porcine) (Heparin) 5,000 units SC Q8 [facility] PRN Reason: Protocol Last Admin: 05/28/18 16:59 Dose: 5,000 units Hydralazine HCl (Apresoline) 10 mg PO BID [facility] Last Admin: 05/28/18 16:59 Dose: 10 mg Sodium Chloride (Sodium Chloride 0.9%) 1,000 mls @ 100 mls/hr IV .Q10H [facility] Last Admin: 05/25/18 00:52 Dose: 100 mls/hr Levetiracetam 500 mg/ Sodium (Chloride) 105 mls @ 210 mls/hr IVPB Q12 [facility] Last Admin: 05/28/18 09:03 Dose: 210 mls/hr Piperacillin Sod/Tazobactam (Sod 2.25 gm/ Sodium Chloride) 100 mls @ 100 mls/ hr IVPB Q12 [facility] PRN Reason: Protocol Last Admin: 05/28/18 09:04 Dose: 100 mls/hr Insulin Human Lispro (Humalog) 0 units SC Q6H [facility] PRN Reason: Protocol Last Admin: 05/28/18 17:00 Dose: 2 u Metoprolol Tartrate (Lopressor) 25 mg PO BID [facility] Last Admin: 05/28/18 17:00 Dose: 25 mg - Labs Labs: 05/28/18 05:09 05/28/18 05:09 PT 12.6 Seconds (9.8-13.1) 05/24/18 15:30 INR 1.1 (0.9-1.2) 05/24/18 15:30 APTT 31.4 Seconds (25.6-37.1) 05/24/18 15:30 - Constitutional Appears: Well - Head Exam Head Exam: ATRAUMATIC, NORMAL INSPECTION, NORMOCEPHALIC - Eye Exam Eye Exam: EOMI, Normal appearance, PERRL. absent: Conjunctival injection, Nystagmus, Periorbital swelling, Periorbital tenderness, Scleral icterus Pupil Exam: NORMAL ACCOMODATION, PERRL - ENT Exam ENT Exam: Mucous Membranes Moist, Normal Exam. absent: Mucous Membranes Dry, Normal External Ear Exam, Normal Oropharynx, TM's Normal Bilaterally - Neck Exam Neck Exam: Full ROM, Normal Inspection. absent: Lymphadenopathy, Meningismus, Tenderness, Thyromegaly - Respiratory Exam Respiratory Exam: Clear to Ausculation Bilateral, NORMAL BREATHING PATTERN. absent: Accessory Muscle Use, Chest Wall Tenderness, Decreased Breath Sounds, Prolonged Expiratory Phase, Rales, Rhonchi, Wheezes, Respiratory Distress, Stridor - Cardiovascular Exam Cardiovascular Exam: REGULAR RHYTHM, +S1, +S2, Murmur. absent: Bradycardia, Tachycardia, Clicks, Diastolic murmur, Gallop, Irregular Rhythm, JVD, RRR, Rubs , +S4 - GI/Abdominal Exam GI & Abdominal Exam: Soft, Normal Bowel Sounds. absent: Bruit, Distended, Firm , Guarding, Rigid, Tenderness, Diminished Bowel Sounds, Hernia, Hyperactive Bowel Sounds, Hypoactive Bowel Sounds, Organomegaly, Pulsatile Mass, Rebound, Mass - Extremities Exam Extremities Exam: Full ROM, Normal Capillary Refill, Normal Inspection. absent : Calf Tenderness, Joint Swelling, Pedal Edema, Tenderness - Back Exam Back Exam: NORMAL INSPECTION. absent: CVA tenderness (L), CVA tenderness (R), Full ROM, muscle spasm, paraspinal tenderness, rash noted, tenderness, vertebral tenderness - Neurological Exam Neurological Exam: Alert, Awake, CN II-XII Intact, Oriented x3 - Psychiatric Exam Psychiatric exam: Normal Affect, Normal Mood. absent: Agitated, Anxious, Depressed, Flat Affect, Homicidal Ideation, Manic, Suicidal Ideation - Skin Skin Exam: Dry, Intact, Normal Color, Warm. absent: Abrasion, Cyanosis, Diaphoretic, Erythema, Mottled, Pallor, Pallor, Petechiae, Rash, Urticaria, Vesicles Assessment and Plan (1) Inappropriate sinus tachycardia Status: Acute (2) A-fib Status: Resolved (3) Altered mental status Status: Acute (4) HTN (hypertension) Status: Acute (5) ESRD (end stage renal disease) on dialysis Status: Acute (6) CVA, old, aphasia Status: Acute (7) LVH (left ventricular hypertrophy) Status: Acute (8) Ejection fraction < 50% Status: Acute (9) Diastolic dysfunction Status: Acute - Assessment and Plan (Free Text) Plan: CHANGE BB'S TO TOPROL XL 25 Q12. WOULD CONSIDER ACEI IF OKAY WITH NEPHROLOGY. MAY BE FOLLOWED ON TELE
[2018-05-29] MEDS: Insulin Lispro (humaLOG) 100 Units/ml Inj SC SCH ×4 (05:26→23:01)
[2018-05-29 06:23] LABS: HEMOGLOBIN 9.7 g/dL (12.0-18.0); MEAN CELL VOLUME 86.4 fl (80.0-94.0); MEAN CORPUSCULAR HEMOGLOBIN 27.6 pg (27.0-31.0); RBC 3.5 Mil/uL (4.40-5.90); RED CELL DISTRIBUTION WIDTH 17.2 % (11.5-14.5); WHITE BLOOD COUNT 4.1 K/uL (4.8-10.8)
[2018-05-29] MEDS ORDERED: Sod Polystyrene Sulf 15 gm/60 ml Susp PO ONE (08:08)
[2018-05-29] MEDS: levETIRAcetam 500 MG in Sodium Chloride 0.9% 100 ML IVPB SCH ×2 (08:44→22:00)
[2018-05-29] MEDS: Metoprolol Succinate 25 mg XL Tab PO SCH ×2 (08:44→21:20)
--- NOTE | 2018-05-29 09:18 | CP.PCM.PN ---
Subjective - Date & Time of Evaluation Date of Evaluation: 05/29/18 Time of Evaluation: 09:00 - Subjective Subjective: Pt is more awake and responsive alert, oriented to person and place good PO intake no further abn rhythm on Tele monitor Pt denies HAS no SOB no CP No fever Plan for Hemodialysis today Objective - Vital Signs/Intake and Output Vital Signs (last 24 hours): Temp Pulse Resp BP Pulse Ox 97.5 F L 76 16 150/60 100 05/29/18 08:05 05/29/18 08:44 05/29/18 08:05 05/29/18 08:44 05/29/18 08:05 Intake and Output: 05/29/18 05/29/18 06:59 18:59 Intake Total 250 Output Total 0 Balance 250 - Medications Medications: Current Medications Acetaminophen (Tylenol 650 Mg Supp) 650 mg [place] Q6 PRN PRN Reason: Fever >100.4 F Last Admin: 05/25/18 05:32 Dose: 650 mg Aspirin (Ecotrin) 81 mg PO DAILY [facility] Last Admin: 05/29/18 08:43 Dose: 81 mg Clopidogrel Bisulfate (Plavix) 75 mg PO DAILY [facility] Last Admin: 05/29/18 08:44 Dose: 75 mg Hydralazine HCl (Apresoline) 10 mg PO BID [facility] Last Admin: 05/29/18 08:43 Dose: 10 mg Sodium Chloride (Sodium Chloride 0.9%) 1,000 mls @ 100 mls/hr IV .Q10H [facility] Last Admin: 05/25/18 00:52 Dose: 100 mls/hr Levetiracetam 500 mg/ Sodium (Chloride) 105 mls @ 210 mls/hr IVPB Q12 [facility] Last Admin: 05/29/18 08:44 Dose: 210 mls/hr Piperacillin Sod/Tazobactam (Sod 2.25 gm/ Sodium Chloride) 100 mls @ 100 mls/ hr IVPB Q12 [facility] PRN Reason: Protocol Last Admin: 05/29/18 08:45 Dose: 100 mls/hr Insulin Human Lispro (Humalog) 0 units SC Q6H [facility] PRN Reason: Protocol Last Admin: 05/29/18 05:26 Dose: Not Given Metoprolol Succinate (Toprol Xl) 25 mg PO Q12 [facility] Last Admin: 05/29/18 08:44 Dose: 25 mg - Labs Labs: 05/29/18 05:30 05/29/18 05:30 PT 12.6 Seconds (9.8-13.1) 05/24/18 15:30 INR 1.1 (0.9-1.2) 05/24/18 15:30 APTT 31.4 Seconds (25.6-37.1) 05/24/18 15:30 - Constitutional Appears: Chronically Ill, more awake today, answers questions appropriately - Head Exam Head Exam: NORMAL INSPECTION, NORMOCEPHALIC - ENT Exam ENT Exam: Mucous Membranes Dry, Normal External Ear Exam - Neck Exam Neck Exam: absent: Meningismus - Respiratory Exam Respiratory Exam: Rhonchi, NORMAL BREATHING PATTERN. absent: Respiratory Distress - Cardiovascular Exam Cardiovascular Exam: REGULAR RHYTHM, +S1, +S2 - GI/Abdominal Exam GI & Abdominal Exam: Soft, Normal Bowel Sounds - Extremities Exam Extremities Exam: Normal Capillary Refill, Pedal Edema - Neurological Exam Additional comments: awake , alert, oriented to person and place answers questions appropriately follows simple commands MMT 4-5/5 - Skin Skin Exam: Dry, Normal Color, Warm Assessment and Plan - Assessment and Plan (Free Text) Assessment: 62 y/o male with Hx of A fib, prior CVA, DM2, HTN, HLD, Dementia and ESRD on HD T// who comes in with hallucinations and mental status changes. 05/24: noted wide complex tachycardia on Tele monitoring- transferred to ICU for close monitoring - Cardio consulted - felt that Tachycardia was due to Pacemaker mediated Tach - Dr Tobias consulted and thought this was A Sensed Ventricular paced rhythm. 1. Acute Change in mental Status likely sec to Seizures and also due to Metabolic Encephalopathy , CVA ruled out -ICU monitoring - now better will transfer to Med Surg -Serial trops : negative so far -Echo: mild syst dysfxn, EF 40% -Carotid dopplers: no stenosis -EEG: slowing frontal, temporal -- CT of head , CTA of head /Neck : neg - unable to do MRI due to presence of Pacemaker -cont ASA -Kepp 500 mg IV BID ( pt noted to have some twitching) -Neuro consulted (Dr Marie) -PT/OT consult - LDL =57 - no statin - Passed swallow eval - tolerating diet 2. Wide Complex tachycardia likely was Atrial - sensed Ventricular Pacing - Amiodarone x 1 dose given - Mg normal -Cardio consulted- discussed case with Dr Vallejo - rec Pacemaker Interrogation -[employer] came to eval Pacemaker - Dr Tobias consulted 3) DM type II -SSI and accuchecks 4) A fib , paroxysmal s/p Pacemaker Pt has Pacemaker -Metoprolol 25 mg bid 5) ESRD on HD -Renal consult - Dr Trujillo - HD: T Th S 6. Hx of CVA cont ASA, no statin LDL 57 7. HTN low dose Metoprolol 8. Fever sec to Right Basal Pneumonia ( POA) - Pancultured -Vanco x 1 dose given after dialysis -rpt CXR: R base airspace dis - ID consulted - discussed case with DR Santiago - DR santiago rec IV Zosyn for now DVT PPx -SQ heparin
[2018-05-29] MEDS: Multivitamin Vitamin B Complex (Nephro-Vite) Tab PO SCH (16:02)
[2018-05-29] MEDS: Epoetin Alfa 4000 UNIT/ML Inj IV SCH (16:03)
--- NOTE | 2018-05-29 21:55 | CP.PCM.PN ---
Subjective - Date & Time of Evaluation Date of Evaluation: 05/29/18 Time of Evaluation: 21:52 - Subjective Subjective: Nephrology Consultation Note Assessment: Stable AMS with pneumonia, A fib Diabetic chronic Kidney Disease (E11.22) Hypertensive Chronic Kidney Disease (I12.0) End stage renal disease (N18.6) dependence on hemodialysis (Z99.2) (TTS)via AVF Anemia (D64.9), Hyperphosphatemia (E83.39), Secondary Hyperparathyroidism (E21.1 ), HTN (I12.0) Plan: Will plan for HD today as ordered. Continue with Nephrovite 1 tab/day. PRBC as needed for anemia. on YUNIEL with dialysis as last Hb 9.7 Continue with phos binders, last phos level 5.3 BP control with meds as ordered. Patient not on RAAS jimena, may consider to add if BP stays high Glycemic control, Dialysis consistent diet Further work up/management as per primary team Dose meds/antibiotics (if needed) for ESRD status. Avoid fleets enema/magnesium based laxatives. Thanks for allowing me to participate in care of your patient. Will follow patient with you. Please call if any Qs Dr Sonu Treadwell Office: [phone] Subjective: Noted events overnight. Patients feels okay. Denies chest pain, palpitation, shortness of breath, leg swelling. All other negative Physical Examination: General Appearance: Comfortable, in no acute respiratory distress, co-operative . Vitals reviewed and noted as below Head; Atraumatic, normocephalic ENT: no ulcers no thrush. Tongue is midline. Oropharynx: no rash or ulcers. Neck; supple no lymphadenopathy, no thyromegaly or bruit Lungs: Normal respiratory rate/effort. Breath sounds bilateral equal and clear Heart: Normal rate. s1s2 normal. No rub or gallop. Extremities: no edema. No varicose veins Neurological: Patient is alert, awake and oriented to person, place and time. No focal deficit. Strength bilateral appropriate and equal Skin: Warm and dry. Normal turgor. No rash. Palpitation: Normal elasticity for age Abdomen: Abdomen is soft. Bowel sounds +. There is no abdominal tenderness, no guarding/rigidity or organomegaly Psych: limited insight and normal affect/mood MSK: no joint tenderness or swelling. Digits and nails normal, no deformity : kidney or bladder not palpable Access: AVF Labs/imaging reviewed. Past medical history, past surgical history, family history, social history, allergy reviewed and noted as below Family Hx: no hx of CKD. Non contributory Objective - Vital Signs/Intake and Output Vital Signs (last 24 hours): Temp Pulse Resp BP Pulse Ox 97.4 F L 64 18 163/81 H 99 05/29/18 16:50 05/29/18 21:20 05/29/18 16:50 05/29/18 21:20 05/29/18 16:50 - Medications Medications: Current Medications Acetaminophen (Tylenol 650 Mg Supp) 650 mg [place] Q6 PRN PRN Reason: Fever >100.4 F Last Admin: 05/25/18 05:32 Dose: 650 mg Aspirin (Ecotrin) 81 mg PO DAILY [facility] Last Admin: 05/29/18 08:43 Dose: 81 mg Clopidogrel Bisulfate (Plavix) 75 mg PO DAILY [facility] Last Admin: 05/29/18 08:44 Dose: 75 mg Epoetin Jose (Procrit) 4,000 unit IV TTS [facility] Last Admin: 05/29/18 16:03 Dose: 4,000 unit Heparin Sodium (Porcine) (Heparin) 5,000 units SC Q8 [facility] PRN Reason: Protocol Last Admin: 05/29/18 16:02 Dose: 5,000 units Hydralazine HCl (Apresoline) 10 mg PO BID [facility] Last Admin: 05/29/18 16:01 Dose: 10 mg Levetiracetam 500 mg/ Sodium (Chloride) 105 mls @ 210 mls/hr IVPB Q12 [facility] Last Admin: 05/29/18 08:44 Dose: 210 mls/hr Piperacillin Sod/Tazobactam (Sod 2.25 gm/ Sodium Chloride) 100 mls @ 100 mls/ hr IVPB Q12 [facility] PRN Reason: Protocol Last Admin: 05/29/18 21:21 Dose: 100 mls/hr Insulin Human Lispro (Humalog) 0 units SC Q6H [facility] PRN Reason: Protocol Last Admin: 05/29/18 16:30 Dose: Not Given Metoprolol Succinate (Toprol Xl) 25 mg PO Q12 [facility] Last Admin: 05/29/18 21:20 Dose: 25 mg Vitamin B Complex/Vit C/Folic Acid (Nephro-Hay) 1 tab PO DAILY [facility] Last Admin: 05/29/18 16:02 Dose: 1 tab - Labs Labs: 05/29/18 05:30 05/29/18 05:30 PT 12.6 Seconds (9.8-13.1) 05/24/18 15:30 INR 1.1 (0.9-1.2) 05/24/18 15:30 APTT 31.4 Seconds (25.6-37.1) 05/24/18 15:30
--- NOTE | 2018-05-30 06:03 | PN ---
DATE: 05/29/2018 CRITICAL CARE PROGRESS NOTE LOCATION: The patient in room 435. TIME SPENT: 35 minutes. The patient is seen and evaluated at the bedside. Past medical, surgical, and social history reviewed. Overnight events noted. SUBJECTIVE: A 62-year-old male with diabetes mellitus type 2; hypertension; hyperlipidemia; end-stage renal disease, on hemodialysis three times a week; prior CVA; atrial fibrillation, status post AICD and permanent pacemaker insertion. Events overnight, normotensive, afebrile. Telemetry, sinus rhythm with occasional sinus tachycardia. This morning, status post hemodialysis. PHYSICAL EXAMINATION: VITAL SIGNS: Temperature 97.5, heart rate 60, blood pressure 148/70 with a mean arterial pressure of 96, respiratory rate 12, oxygen saturation 100% on oxygen supplement 2 liters. Intake 682, output 2000, negative balance 1318. HEAD, EYES, EARS, NOSE, AND THROAT: Pupils are reactive. Conjunctivae are pale. Sclerae are white. NECK: Supple. Trachea central. CHEST: Bilateral breath sounds, diminished intensity. HEART: Rhythm regular. No audible murmur. ABDOMEN: Bowel sounds present. Soft. EXTREMITIES: Dependent edema. Dorsalis pedis palpable, reduced in intensity. NEURO EXAMINATION: Alert and awake, slow to respond. CURRENT MEDICATIONS: Include aspirin 81 mg daily, Tylenol 650 mg every 6 hours p.r.n., Plavix 75 mg daily, Procrit 4000 units IV TTS, heparin 5000 units subcu every 8 hours, hydralazine 10 mg p.o. b.i.d., insulin lispro every 6 hours based on Accu-Chek, Keppra 500 mg IV every 12 hours, Toprol-XL 25 mg p.o. every 12 hours, Zosyn 2.25 g IV every 12 hours, sodium chloride at 100 mL/hour, vitamin B complex/C/folic acid (Nephro-Hay) one tablet daily. LABORATORY DATA: WBC 4.1, hemoglobin 9.7, hematocrit 30.2, platelet count 230. PT 12.6, INR 1.1, PTT 31.4. SMA-7: Sodium 134, potassium 5.5, chloride 95, CO2 of 25, blood urea nitrogen 45, creatinine 6.6, random glucose 138. Serology: Hepatitis B surface antigen negative, C core antibody negative, hepatitis C antibody negative. Microbiology: MRSA nasal smear negative. Blood culture, no growth. EEG: Abnormal, localized slowing within the left temporal and frontal, suggests an underlying structural abnormality. IMPRESSION: 1. Neurologic: Resolving metabolic encephalopathy, status post hemodialysis. Hyperkalemia noted. Follow up post-hemodialysis electrolytes. 2. Pulmonary: Right airspace disease, probably fluid overload, improved. 3. Cardiac: Status post permanent pacemaker/automatic implantable cardioverter-defibrillator insertion. Noted intermittent tachycardia. Seen by Electrophysiology and Cardiology. Inappropriate sinus tachycardia. 4. Hematology: Anemia of chronic disease, stable. 5. Renal: Chronic renal failure, on hemodialysis. Continue deep venous thrombosis and gastrointestinal prophylaxis. 6. Endocrine: Maintain blood sugar less than 180. Keep head of bed 30 degrees up. Chirs Olivarez MD
[2018-05-30] MEDS: Insulin Lispro (humaLOG) 100 Units/ml Inj SC SCH ×5 (06:48→22:31)
[2018-05-30 07:08] LABS: HEMOGLOBIN 10.1 g/dL (12.0-18.0); MEAN CELL VOLUME 86.3 fl (80.0-94.0); MEAN CORPUSCULAR HEMOGLOBIN 28.3 pg (27.0-31.0); MEAN CORPUSCULAR HGB CONC 32.8 g/dL (33.0-37.0); RBC 3.57 Mil/uL (4.40-5.90); RED CELL DISTRIBUTION WIDTH 16.8 % (11.5-14.5); WHITE BLOOD COUNT 3.9 K/uL (4.8-10.8)
[2018-05-30 07:33] LABS: CALCIUM 9.2 mg/dL (8.4-10.2)
[2018-05-30] MEDS: levETIRAcetam 500 MG in Sodium Chloride 0.9% 100 ML IVPB SCH ×2 (08:25→20:57)
[2018-05-30] MEDS: Multivitamin Vitamin B Complex (Nephro-Vite) Tab PO SCH (08:26)
[2018-05-30] MEDS: Metoprolol Succinate 25 mg XL Tab PO SCH ×2 (08:26→21:37)
--- NOTE | 2018-05-30 09:55 | CP.PCM.PN ---
Subjective - Date & Time of Evaluation Date of Evaluation: 05/30/18 Time of Evaluation: 09:40 - Subjective Subjective: Pt seen for Dr. Vallejo Resting comfortably No episodes of palpitations or dizzy spells Vital signs stable Awaits start of PT Objective - Vital Signs/Intake and Output Vital Signs (last 24 hours): Temp Pulse Resp BP Pulse Ox 97.9 F 60 20 164/75 H 99 05/30/18 07:58 05/30/18 08:27 05/30/18 07:58 05/30/18 08:27 05/30/18 07:58 - Medications Medications: Current Medications Acetaminophen (Tylenol 650 Mg Supp) 650 mg [place] Q6 PRN PRN Reason: Fever >100.4 F Last Admin: 05/25/18 05:32 Dose: 650 mg Aspirin (Ecotrin) 81 mg PO DAILY [facility] Last Admin: 05/30/18 08:26 Dose: 81 mg Clopidogrel Bisulfate (Plavix) 75 mg PO DAILY [facility] Last Admin: 05/30/18 08:26 Dose: 75 mg Epoetin Jose (Procrit) 4,000 unit IV TTS [facility] Last Admin: 05/29/18 16:03 Dose: 4,000 unit Heparin Sodium (Porcine) (Heparin) 5,000 units SC Q8 [facility] PRN Reason: Protocol Last Admin: 05/30/18 08:27 Dose: 5,000 units Hydralazine HCl (Apresoline) 10 mg PO BID [facility] Last Admin: 05/30/18 08:27 Dose: 10 mg Levetiracetam 500 mg/ Sodium (Chloride) 105 mls @ 210 mls/hr IVPB Q12 [facility] Last Admin: 05/30/18 08:25 Dose: 210 mls/hr Piperacillin Sod/Tazobactam (Sod 2.25 gm/ Sodium Chloride) 100 mls @ 100 mls/ hr IVPB Q12 [facility] PRN Reason: Protocol Last Admin: 05/30/18 08:26 Dose: 100 mls/hr Insulin Human Lispro (Humalog) 0 units SC Q6H [facility] PRN Reason: Protocol Last Admin: 05/30/18 06:48 Dose: Not Given Metoprolol Succinate (Toprol Xl) 25 mg PO Q12 [facility] Last Admin: 05/30/18 08:26 Dose: 25 mg Sodium Polystyrene Sulfonate (Kayexalate Susp) 15 gm PO ONCE ONE Stop: 05/30/18 10:01 Vitamin B Complex/Vit C/Folic Acid (Nephro-Hay) 1 tab PO DAILY [facility] Last Admin: 05/30/18 08:26 Dose: 1 tab - Labs Labs: 05/30/18 05:20 05/30/18 05:20 PT 12.6 Seconds (9.8-13.1) 05/24/18 15:30 INR 1.1 (0.9-1.2) 05/24/18 15:30 APTT 31.4 Seconds (25.6-37.1) 05/24/18 15:30
[2018-05-30] MEDS ORDERED: Sod Polystyrene Sulf 15 gm/60 ml Susp PO ONE (10:00)
--- NOTE | 2018-05-30 11:34 | CP.PCM.PN ---
Subjective - Date & Time of Evaluation Date of Evaluation: 05/30/18 Time of Evaluation: 11:33 - Subjective Subjective: Nephrology Consultation Note Assessment: Stable AMS with pneumonia, A fib Diabetic chronic Kidney Disease (E11.22) Hypertensive Chronic Kidney Disease (I12.0) End stage renal disease (N18.6) dependence on hemodialysis (Z99.2) (TTS)via AVF Anemia (D64.9), Hyperphosphatemia (E83.39), Secondary Hyperparathyroidism (E21.1 ), HTN (I12.0) Plan: Will plan for HD tueday as ordered. Continue with Nephrovite 1 tab/day. PRBC as needed for anemia. on YUNIEL with dialysis as last Hb 9.7 Continue with phos binders, last phos level 5.3 BP control with meds as ordered. Patient not on RAAS jimena, may consider to add if BP stays high. incresaed hydralazine for now Glycemic control, Dialysis consistent diet Further work up/management as per primary team Dose meds/antibiotics (if needed) for ESRD status. Avoid fleets enema/magnesium based laxatives. Thanks for allowing me to participate in care of your patient. Will follow patient with you. Please call if any Qs Dr Sonu Treadwell Office: [phone] Subjective: Noted events overnight. Patients feels okay. Denies chest pain, palpitation, shortness of breath, leg swelling. All other negative Physical Examination: General Appearance: Comfortable, in no acute respiratory distress, co-operative . Vitals reviewed and noted as below Head; Atraumatic, normocephalic ENT: no ulcers no thrush. Tongue is midline. Oropharynx: no rash or ulcers. Neck; supple no lymphadenopathy, no thyromegaly or bruit Lungs: Normal respiratory rate/effort. Breath sounds bilateral equal and clear Heart: Normal rate. s1s2 normal. No rub or gallop. Extremities: no edema. No varicose veins Neurological: Patient is alert, awake and oriented to person, place and time. No focal deficit. Strength bilateral appropriate and equal Skin: Warm and dry. Normal turgor. No rash. Palpitation: Normal elasticity for age Abdomen: Abdomen is soft. Bowel sounds +. There is no abdominal tenderness, no guarding/rigidity or organomegaly Psych: limited insight and normal affect/mood MSK: no joint tenderness or swelling. Digits and nails normal, no deformity : kidney or bladder not palpable Access: AVF Labs/imaging reviewed. Past medical history, past surgical history, family history, social history, allergy reviewed and noted as below Family Hx: no hx of CKD. Non contributory Objective - Vital Signs/Intake and Output Vital Signs (last 24 hours): Temp Pulse Resp BP Pulse Ox 97.9 F 60 20 164/75 H 99 05/30/18 07:58 05/30/18 08:27 05/30/18 07:58 05/30/18 08:27 05/30/18 07:58 - Medications Medications: Current Medications Acetaminophen (Tylenol 650 Mg Supp) 650 mg [place] Q6 PRN PRN Reason: Fever >100.4 F Last Admin: 05/25/18 05:32 Dose: 650 mg Aspirin (Ecotrin) 81 mg PO DAILY [facility] Last Admin: 05/30/18 08:26 Dose: 81 mg Clopidogrel Bisulfate (Plavix) 75 mg PO DAILY [facility] Last Admin: 05/30/18 08:26 Dose: 75 mg Epoetin Jose (Procrit) 4,000 unit IV TTS [facility] Last Admin: 05/29/18 16:03 Dose: 4,000 unit Heparin Sodium (Porcine) (Heparin) 5,000 units SC Q8 [facility] PRN Reason: Protocol Last Admin: 05/30/18 08:27 Dose: 5,000 units Hydralazine HCl (Apresoline) 50 mg PO BID [facility] Levetiracetam 500 mg/ Sodium (Chloride) 105 mls @ 210 mls/hr IVPB Q12 [facility] Last Admin: 05/30/18 08:25 Dose: 210 mls/hr Piperacillin Sod/Tazobactam (Sod 2.25 gm/ Sodium Chloride) 100 mls @ 100 mls/ hr IVPB Q12 [facility] PRN Reason: Protocol Last Admin: 05/30/18 08:26 Dose: 100 mls/hr Insulin Human Lispro (Humalog) 0 units SC Q6H [facility] PRN Reason: Protocol Last Admin: 05/30/18 11:15 Dose: Not Given Metoprolol Succinate (Toprol Xl) 25 mg PO Q12 [facility] Last Admin: 05/30/18 08:26 Dose: 25 mg Vitamin B Complex/Vit C/Folic Acid (Nephro-Hay) 1 tab PO DAILY [facility] Last Admin: 05/30/18 08:26 Dose: 1 tab - Labs Labs: 05/30/18 05:20 05/30/18 05:20 PT 12.6 Seconds (9.8-13.1) 05/24/18 15:30 INR 1.1 (0.9-1.2) 05/24/18 15:30 APTT 31.4 Seconds (25.6-37.1) 05/24/18 15:30
--- NOTE | 2018-05-30 14:50 | CP.PCM.PN ---
Subjective - Date & Time of Evaluation Date of Evaluation: 05/30/18 Time of Evaluation: 10:30 - Subjective Subjective: No fever Pt more alert and back to his baseline mental status denies any new weakness no CP no headache no abd pain no SOB no cough complains of constipation Objective - Vital Signs/Intake and Output Vital Signs (last 24 hours): Temp Pulse Resp BP Pulse Ox 97.9 F 60 17 157/71 H 99 05/30/18 07:58 05/30/18 12:16 05/30/18 12:16 05/30/18 12:16 05/30/18 12:16 - Medications Medications: Current Medications Acetaminophen (Tylenol 650 Mg Supp) 650 mg [place] Q6 PRN PRN Reason: Fever >100.4 F Last Admin: 05/25/18 05:32 Dose: 650 mg Aspirin (Ecotrin) 81 mg PO DAILY [facility] Last Admin: 05/30/18 08:26 Dose: 81 mg Clopidogrel Bisulfate (Plavix) 75 mg PO DAILY [facility] Last Admin: 05/30/18 08:26 Dose: 75 mg Epoetin Jose (Procrit) 4,000 unit IV TTS [facility] Last Admin: 05/29/18 16:03 Dose: 4,000 unit Heparin Sodium (Porcine) (Heparin) 5,000 units SC Q8 [facility] PRN Reason: Protocol Last Admin: 05/30/18 08:27 Dose: 5,000 units Hydralazine HCl (Apresoline) 50 mg PO BID [facility] Levetiracetam 500 mg/ Sodium (Chloride) 105 mls @ 210 mls/hr IVPB Q12 [facility] Last Admin: 05/30/18 08:25 Dose: 210 mls/hr Piperacillin Sod/Tazobactam (Sod 2.25 gm/ Sodium Chloride) 100 mls @ 100 mls/ hr IVPB Q12 [facility] PRN Reason: Protocol Last Admin: 05/30/18 08:26 Dose: 100 mls/hr Insulin Human Lispro (Humalog) 0 units SC Q6H [facility] PRN Reason: Protocol Last Admin: 05/30/18 11:15 Dose: Not Given Metoprolol Succinate (Toprol Xl) 25 mg PO Q12 [facility] Last Admin: 05/30/18 08:26 Dose: 25 mg Vitamin B Complex/Vit C/Folic Acid (Nephro-Hay) 1 tab PO DAILY [facility] Last Admin: 05/30/18 08:26 Dose: 1 tab - Labs Labs: 05/30/18 05:20 05/30/18 05:20 PT 12.6 Seconds (9.8-13.1) 05/24/18 15:30 INR 1.1 (0.9-1.2) 05/24/18 15:30 APTT 31.4 Seconds (25.6-37.1) 05/24/18 15:30 Constitutional Appears: Chronically Ill, more awake today, answers questions appropriately - Head Exam Head Exam: NORMAL INSPECTION, NORMOCEPHALIC - ENT Exam ENT Exam: Mucous Membranes Dry, Normal External Ear Exam - Neck Exam Neck Exam: absent: Meningismus - Respiratory Exam Respiratory Exam: Rhonchi, NORMAL BREATHING PATTERN. absent: Respiratory Distress - Cardiovascular Exam Cardiovascular Exam: REGULAR RHYTHM, +S1, +S2 - GI/Abdominal Exam GI & Abdominal Exam: Soft, Normal Bowel Sounds - Extremities Exam Extremities Exam: Normal Capillary Refill, Pedal Edema - Neurological Exam Additional comments: awake , alert, oriented to person and place answers questions appropriately follows simple commands MMT 4-5/5 - Skin Skin Exam: Dry, Normal Color, Warm Assessment and Plan - Assessment and Plan (Free Text) Assessment: 62 y/o male with Hx of A fib, prior CVA, DM2, HTN, HLD, Dementia and ESRD on HD T// who comes in with hallucinations and mental status changes. 05/24: noted wide complex tachycardia on Tele monitoring- transferred to ICU for close monitoring - Cardio consulted - felt that Tachycardia was due to Pacemaker mediated Tach - Dr Tobias consulted and thought this was A-Sensed Ventricular paced rhythm. 1. Acute Change in mental Status likely sec to Seizures and also due to Metabolic Encephalopathy , CVA ruled out -Pt initially monitored in ICU -Serial trops : negative so far -Echo: mild syst dysfxn, EF 40% -Carotid dopplers: no stenosis -EEG: slowing frontal, temporal - CT of head , CTA of head /Neck : neg - unable to do MRI due to presence of Pacemaker -cont ASA -Kepp 500 mg IV BID ( pt noted to have some twitching on admission) -Neuro consulted (Dr Marie) -PT/OT consulted - LDL =57 - no statin - Passed swallow eval - tolerating diet - Plan for CONCHITA 2. Wide Complex tachycardia likely was Atrial - sensed Ventricular Pacing - Amiodarone x 1 dose given - Mg normal -Cardio consulted- discussed case with Dr Vallejo - rec Pacemaker Interrogation -[employer] came to eval Pacemaker - Dr Tobias consulted - felt this was A sensed Ventricular pacing 3) DM type II -SSI and accuchecks - DM diet controlled 4) A fib , paroxysmal s/p Pacemaker Pt has Pacemaker -cont Metoprolol 25 mg bid 5) ESRD on HD -Renal consult - Dr Trujillo - HD: 6. Hx of CVA cont ASA, no statin LDL 57 7. HTN low dose Metoprolol Nephro added Hydralazine 8. Fever sec to Right Basal Pneumonia ( POA) - Pancultured -Vanco x 1 dose given after dialysis -rpt CXR: R base airspace dis - ID consulted - discussed case with DR Parada - DR Parada rec IV Zosyn - will continue DVT PPx -SQ heparin
[2018-05-31] MEDS: Insulin Lispro (humaLOG) 100 Units/ml Inj SC SCH ×4 (06:20→23:30)
[2018-05-31 06:36] LABS: HEMOGLOBIN 10.1 g/dL (12.0-18.0); MEAN CELL VOLUME 84.9 fl (80.0-94.0); MEAN CORPUSCULAR HEMOGLOBIN 28.6 pg (27.0-31.0); MEAN CORPUSCULAR HGB CONC 33.7 g/dL (33.0-37.0); RBC 3.52 Mil/uL (4.40-5.90); RED CELL DISTRIBUTION WIDTH 16.6 % (11.5-14.5); WHITE BLOOD COUNT 4.1 K/uL (4.8-10.8)
[2018-05-31] MEDS: levETIRAcetam 500 MG in Sodium Chloride 0.9% 100 ML IVPB SCH ×2 (09:24→20:11)
[2018-05-31] MEDS: Multivitamin Vitamin B Complex (Nephro-Vite) Tab PO SCH (09:30)
[2018-05-31] MEDS: Metoprolol Succinate 25 mg XL Tab PO SCH ×2 (09:31→20:11)
--- NOTE | 2018-05-31 10:50 | CP.PCM.PN ---
Subjective - Date & Time of Evaluation Date of Evaluation: 05/31/18 Time of Evaluation: 10:49 - Subjective Subjective: No unusual events reported. No nausea no vomiting Vital signs stable Objective - Vital Signs/Intake and Output Vital Signs (last 24 hours): Temp Pulse Resp BP Pulse Ox 97.6 F 75 20 146/73 97 05/31/18 08:07 05/31/18 09:38 05/31/18 08:07 05/31/18 09:38 05/31/18 08:07 - Medications Medications: Current Medications Acetaminophen (Tylenol 650 Mg Supp) 650 mg [place] Q6 PRN PRN Reason: Fever >100.4 F Last Admin: 05/25/18 05:32 Dose: 650 mg Aspirin (Ecotrin) 81 mg PO DAILY [facility] Last Admin: 05/31/18 09:30 Dose: 81 mg Clopidogrel Bisulfate (Plavix) 75 mg PO DAILY [facility] Last Admin: 05/31/18 09:30 Dose: 75 mg Epoetin Jose (Procrit) 4,000 unit IV TTS [facility] Last Admin: 05/29/18 16:03 Dose: 4,000 unit Heparin Sodium (Porcine) (Heparin) 5,000 units SC Q8 [facility] PRN Reason: Protocol Last Admin: 05/31/18 09:30 Dose: 5,000 units Hydralazine HCl (Apresoline) 50 mg PO TID [facility] Last Admin: 05/31/18 09:38 Dose: 50 mg Levetiracetam 500 mg/ Sodium (Chloride) 105 mls @ 210 mls/hr IVPB Q12 [facility] Last Admin: 05/31/18 09:24 Dose: 210 mls/hr Piperacillin Sod/Tazobactam (Sod 2.25 gm/ Sodium Chloride) 100 mls @ 100 mls/ hr IVPB Q12 [facility] PRN Reason: Protocol Last Admin: 05/31/18 10:13 Dose: 100 mls/hr Insulin Human Lispro (Humalog) 0 units SC Q6H [facility] PRN Reason: Protocol Last Admin: 05/31/18 06:20 Dose: Not Given Lactulose (Enulose) 20 gm PO BID PRN PRN Reason: Constipation Metoprolol Succinate (Toprol Xl) 25 mg PO Q12 [facility] Last Admin: 05/31/18 09:31 Dose: 25 mg Vitamin B Complex/Vit C/Folic Acid (Nephro-Hay) 1 tab PO DAILY [facility] Last Admin: 05/31/18 09:30 Dose: 1 tab - Labs Labs: 05/31/18 06:20 05/31/18 06:20 PT 12.6 Seconds (9.8-13.1) 05/24/18 15:30 INR 1.1 (0.9-1.2) 05/24/18 15:30 APTT 31.4 Seconds (25.6-37.1) 05/24/18 15:30 - Constitutional Appears: No Acute Distress - ENT Exam ENT Exam: Mucous Membranes Moist - Neck Exam Neck Exam: absent: Lymphadenopathy - Respiratory Exam Respiratory Exam: absent: Chest Wall Tenderness - Cardiovascular Exam Cardiovascular Exam: absent: Gallop, JVD, Rubs - GI/Abdominal Exam GI & Abdominal Exam: Soft, Normal Bowel Sounds - Extremities Exam Extremities Exam: absent: Calf Tenderness - Back Exam Back Exam: absent: CVA tenderness (L), CVA tenderness (R) - Neurological Exam Neurological Exam: Altered - Skin Skin Exam: absent: Cyanosis Assessment and Plan (1) A-fib Status: Resolved (2) Altered mental status Status: Acute (3) DM2 (diabetes mellitus, type 2) Status: Acute (4) ESRD (end stage renal disease) on dialysis Assessment & Plan: pneumonia, A fib Diabetic chronic Kidney Disease (E11.22) Hypertensive Chronic Kidney Disease (I12.0) End stage renal disease (N18.6) dependence on hemodialysis (Z99.2) (TTS)via AVF Anemia (D64.9), Hyperphosphatemia (E83.39), Secondary Hyperparathyroidism (E21.1 ), HTN (I12.0) Plan: Will plan for HD tueday as ordered. Continue with Nephrovite 1 tab/day. PRBC as needed for anemia. on YUNIEL with dialysis as last Hb 9.7 Continue with phos binders, last phos level 5.3 BP control with meds as ordered. Patient not on RAAS jimena, may consider to add if BP stays high. incresaed hydralazine for now Glycemic control, Dialysis consistent diet Further work up/management as per primary team Dose meds/antibiotics (if needed) for ESRD status. Avoid fleets enema/magnesium based laxatives. Status: Acute (5) HTN (hypertension) Status: Acute
--- NOTE | 2018-05-31 12:34 | CP.PCM.PN ---
Subjective - Date & Time of Evaluation Date of Evaluation: 05/31/18 Time of Evaluation: 12:33 - Subjective Subjective: doing well today was sleepy easily awakened with loud noise Objective - Vital Signs/Intake and Output Vital Signs (last 24 hours): Temp Pulse Resp BP Pulse Ox 97.6 F 75 20 146/73 97 05/31/18 08:07 05/31/18 09:38 05/31/18 08:07 05/31/18 09:38 05/31/18 08:07 - Medications Medications: Current Medications Acetaminophen (Tylenol 650 Mg Supp) 650 mg [place] Q6 PRN PRN Reason: Fever >100.4 F Last Admin: 05/25/18 05:32 Dose: 650 mg Aspirin (Ecotrin) 81 mg PO DAILY [facility] Last Admin: 05/31/18 09:30 Dose: 81 mg Clopidogrel Bisulfate (Plavix) 75 mg PO DAILY [facility] Last Admin: 05/31/18 09:30 Dose: 75 mg Epoetin Jose (Procrit) 4,000 unit IV TTS [facility] Last Admin: 05/29/18 16:03 Dose: 4,000 unit Heparin Sodium (Porcine) (Heparin) 5,000 units SC Q8 [facility] PRN Reason: Protocol Last Admin: 05/31/18 09:30 Dose: 5,000 units Hydralazine HCl (Apresoline) 50 mg PO TID [facility] Last Admin: 05/31/18 09:38 Dose: 50 mg Levetiracetam 500 mg/ Sodium (Chloride) 105 mls @ 210 mls/hr IVPB Q12 [facility] Last Admin: 05/31/18 09:24 Dose: 210 mls/hr Piperacillin Sod/Tazobactam (Sod 2.25 gm/ Sodium Chloride) 100 mls @ 100 mls/ hr IVPB Q12 [facility] PRN Reason: Protocol Last Admin: 05/31/18 10:13 Dose: 100 mls/hr Insulin Human Lispro (Humalog) 0 units SC Q6H [facility] PRN Reason: Protocol Last Admin: 05/31/18 12:13 Dose: Not Given Lactulose (Enulose) 20 gm PO BID PRN PRN Reason: Constipation Metoprolol Succinate (Toprol Xl) 25 mg PO Q12 [facility] Last Admin: 05/31/18 09:31 Dose: 25 mg Vitamin B Complex/Vit C/Folic Acid (Nephro-Hay) 1 tab PO DAILY [facility] Last Admin: 05/31/18 09:30 Dose: 1 tab - Labs Labs: 05/31/18 06:20 05/31/18 06:20 PT 12.6 Seconds (9.8-13.1) 05/24/18 15:30 INR 1.1 (0.9-1.2) 05/24/18 15:30 APTT 31.4 Seconds (25.6-37.1) 05/24/18 15:30 - Constitutional Appears: Well, No Acute Distress - Head Exam Head Exam: ATRAUMATIC - Eye Exam Eye Exam: Normal appearance Pupil Exam: NORMAL ACCOMODATION - ENT Exam ENT Exam: Mucous Membranes Moist - Respiratory Exam Respiratory Exam: Clear to Ausculation Bilateral, NORMAL BREATHING PATTERN - Cardiovascular Exam Cardiovascular Exam: +S1, +S2. absent: Irregular Rhythm - GI/Abdominal Exam GI & Abdominal Exam: Soft, Normal Bowel Sounds. absent: Tenderness - Neurological Exam Neurological Exam: Alert, Oriented x3 Assessment and Plan - Assessment and Plan (Free Text) Assessment: 62 y/o male with Hx of A fib, prior CVA, DM2, HTN, HLD, Dementia and ESRD on HD T// who comes in with hallucinations and mental status changes. 05/24: noted wide complex tachycardia on Tele monitoring- transferred to ICU for close monitoring - Cardio consulted - felt that Tachycardia was due to Pacemaker mediated Tach - Dr Tobias consulted and thought this was A-Sensed Ventricular paced rhythm. 1. Acute Change in mental Status likely sec to Seizures and also due to Metabolic Encephalopathy , CVA ruled out -Pt initially monitored in ICU -Serial trops : negative so far -Echo: mild syst dysfxn, EF 40% -Carotid dopplers: no stenosis -EEG: slowing frontal, temporal - CT of head , CTA of head /Neck : neg - unable to do MRI due to presence of Pacemaker -cont ASA -Kepp 500 mg IV BID ( pt noted to have some twitching on admission) -Neuro consulted (Dr Marie) -PT/OT consulted - LDL =57 - no statin - Passed swallow eval - tolerating diet - Plan for CONCHITA switch Keppra to ORAL 2. Wide Complex tachycardia likely was Atrial - sensed Ventricular Pacing - Amiodarone x 1 dose given - Mg normal -Cardio consulted- discussed case with Dr Vallejo - rec Pacemaker Interrogation -[employer] came to eval Pacemaker - Dr Tobias consulted - felt this was A sensed Ventricular pacing 3) DM type II -SSI and accuchecks - DM diet controlled 4) A fib , paroxysmal s/p Pacemaker Pt has Pacemaker -cont Metoprolol 25 mg bid 5) ESRD on HD -Renal consult - Dr Trujillo - HD: T Th S 6. Hx of CVA cont ASA, no statin LDL 57 7. HTN low dose Metoprolol Nephro added Hydralazine 8. Fever sec to Right Basal Pneumonia ( POA) - Pancultured -Vanco x 1 dose given after dialysis -rpt CXR: R base airspace dis - ID consulted - discussed case with DR Parada - DR Parada rec IV Zosyn - will continue DVT PPx -SQ heparin
[2018-06-01] MEDS: Insulin Lispro (humaLOG) 100 Units/ml Inj SC SCH ×3 (06:17→17:09)
[2018-06-01] MEDS: Multivitamin Vitamin B Complex (Nephro-Vite) Tab PO SCH (09:15)
[2018-06-01] MEDS: Metoprolol Succinate 25 mg XL Tab PO SCH (09:20)
[2018-06-01] MEDS: levETIRAcetam 500 MG in Sodium Chloride 0.9% 100 ML IVPB SCH (09:22)
--- NOTE | 2018-06-01 11:36 | CP.PCM.PN ---
Subjective - Date & Time of Evaluation Date of Evaluation: 06/01/18 Time of Evaluation: 11:35 - Subjective Subjective: no significant changes mentally just about the same No nausea no vomiting Objective - Vital Signs/Intake and Output Vital Signs (last 24 hours): Temp Pulse Resp BP Pulse Ox 97.9 F 60 18 158/71 H 99 06/01/18 08:46 06/01/18 09:20 06/01/18 08:46 06/01/18 09:20 06/01/18 08:46 - Medications Medications: Current Medications Acetaminophen (Tylenol 650 Mg Supp) 650 mg MI Q6 PRN PRN Reason: Fever >100.4 F Last Admin: 05/25/18 05:32 Dose: 650 mg Aspirin (Ecotrin) 81 mg PO DAILY [facility] Last Admin: 06/01/18 09:14 Dose: 81 mg Clopidogrel Bisulfate (Plavix) 75 mg PO DAILY [facility] Last Admin: 06/01/18 09:15 Dose: 75 mg Epoetin Jose (Procrit) 4,000 unit IV TTS [facility] Last Admin: 05/29/18 16:03 Dose: 4,000 unit Heparin Sodium (Porcine) (Heparin) 5,000 units SC Q8 [facility] PRN Reason: Protocol Last Admin: 06/01/18 09:14 Dose: 5,000 units Hydralazine HCl (Apresoline) 50 mg PO TID [facility] Last Admin: 06/01/18 09:20 Dose: Not Given Levetiracetam 500 mg/ Sodium (Chloride) 105 mls @ 210 mls/hr IVPB Q12 [facility] Last Admin: 06/01/18 09:22 Dose: 210 mls/hr Piperacillin Sod/Tazobactam (Sod 2.25 gm/ Sodium Chloride) 100 mls @ 100 mls/ hr IVPB Q12 [facility]AR[facility] PRN Reason: Protocol Last Admin: 06/01/18 09:23 Dose: 100 mls/hr Insulin Human Lispro (Humalog) 0 units SC Q6H [facility]IT PRN Reason: Protocol Last Admin: 06/01/18 06:17 Dose: Not Given Lactulose (Enulose) 20 gm PO BID PRN PRN Reason: Constipation Metoprolol Succinate (Toprol Xl) 25 mg PO Q12 [facility] Last Admin: 06/01/18 09:20 Dose: Not Given Vitamin B Complex/Vit C/Folic Acid (Nephro-Hay) 1 tab PO DAILY [facility] Last Admin: 06/01/18 09:15 Dose: 1 tab - Labs Labs: 05/31/18 06:20 05/31/18 06:20 PT 12.6 Seconds (9.8-13.1) 05/24/18 15:30 INR 1.1 (0.9-1.2) 05/24/18 15:30 APTT 31.4 Seconds (25.6-37.1) 05/24/18 15:30 - Constitutional Appears: No Acute Distress - Eye Exam Eye Exam: Conjunctival injection - ENT Exam ENT Exam: Mucous Membranes Moist - Neck Exam Neck Exam: absent: Lymphadenopathy - Respiratory Exam Respiratory Exam: NORMAL BREATHING PATTERN - Cardiovascular Exam Cardiovascular Exam: absent: Gallop, JVD, Rubs - GI/Abdominal Exam GI & Abdominal Exam: Soft, Normal Bowel Sounds - Extremities Exam Extremities Exam: absent: Calf Tenderness - Back Exam Back Exam: absent: CVA tenderness (L), CVA tenderness (R) - Neurological Exam Neurological Exam: absent: Altered, Awake - Psychiatric Exam Psychiatric exam: Flat Affect - Skin Skin Exam: absent: Cyanosis Assessment and Plan (1) A-fib Status: Resolved (2) Altered mental status Status: Acute (3) DM2 (diabetes mellitus, type 2) Status: Acute (4) ESRD (end stage renal disease) on dialysis Assessment & Plan: pneumonia, A fib Diabetic chronic Kidney Disease (E11.22) Hypertensive Chronic Kidney Disease (I12.0) End stage renal disease (N18.6) dependence on hemodialysis (Z99.2) (TTS)via AVF Anemia (D64.9), Hyperphosphatemia (E83.39), Secondary Hyperparathyroidism (E21.1 ), HTN (I12.0) Plan: Will plan for HD tueday as ordered. Continue with Nephrovite 1 tab/day. PRBC as needed for anemia. on YUNIEL with dialysis as last Hb 9.7 Continue with phos binders, last phos level 5.3 BP control with meds as ordered. Patient not on RAAS jimena, may consider to add if BP stays high. incresaed hydralazine for now Glycemic control, Dialysis consistent diet Further work up/management as per primary team Dose meds/antibiotics (if needed) for ESRD status. Avoid fleets enema/magnesium based laxatives. Status: Acute (5) HTN (hypertension) Status: Acute
--- NOTE | 2018-06-01 13:36 | CP.PCM.DIS ---
Provider - Provider Date of Admission: 05/23/18 21:59 Attending physician: Ana Jesus MD Time Spent in preparation of Discharge (in minutes): 35 Diagnosis - Discharge Diagnosis (1) Altered mental status Status: Acute Comment: possible seizure Hospital Course - Lab Results Lab Results: Micro Results 05/29/18 07:10 Nose MRSA Culture (Admit) - Final MRSA NOT DETECTED 05/28/18 05:30 Nose MRSA Culture (Admit) - Final MRSA NOT DETECTED 05/25/18 12:49 Blood Blood Culture - Final NO GROWTH AFTER 5 DAYS 05/25/18 12:49 Blood Gram Stain - Final TEST NOT PERFORMED 05/25/18 12:49 Blood Blood Culture - Final NO GROWTH AFTER 5 DAYS 05/25/18 12:49 Blood Gram Stain - Final TEST NOT PERFORMED 05/25/18 16:38 Naris MRSA Culture (Admit) - Final MRSA NOT DETECTED Most Recent Lab Values WBC 4.1 K/uL (4.8-10.8) L 05/31/18 06:20 RBC 3.52 Mil/uL (4.40-5.90) L 05/31/18 06:20 Hgb 10.1 g/dL (12.0-18.0) L 05/31/18 06:20 Hct 29.9 % (35.0-51.0) L 05/31/18 06:20 MCV 84.9 fl (80.0-94.0) 05/31/18 06:20 MCH 28.6 pg (27.0-31.0) 05/31/18 06:20 MCHC 33.7 g/dL (33.0-37.0) 05/31/18 06:20 RDW 16.6 % (11.5-14.5) H 05/31/18 06:20 Plt Count 237 K/uL (130-400) 05/31/18 06:20 MPV 8.8 fl (7.2-11.7) 05/26/18 04:37 Neut % (Auto) 72.3 % (50.0-75.0) 05/26/18 04:37 Lymph % (Auto) 17.0 % (20.0-40.0) L 05/26/18 04:37 [place] % (Auto) 7.1 % (0.0-10.0) 05/26/18 04:37 Eos % (Auto) 3.3 % (0.0-4.0) 05/26/18 04:37 Baso % (Auto) 0.3 % (0.0-2.0) 05/26/18 04:37 Neut # (Auto) 4.7 K/uL (1.8-7.0) 05/26/18 04:37 Lymph # (Auto) 1.1 K/uL (1.0-4.3) 05/26/18 04:37 [place] # (Auto) 0.5 K/uL (0.0-0.8) 05/26/18 04:37 Eos # (Auto) 0.2 K/uL (0.0-0.7) 05/26/18 04:37 Baso # (Auto) 0.0 K/uL (0.0-0.2) 05/26/18 04:37 Neutrophils % (Manual) 85 % (42-75) H 05/25/18 04:30 Band Neutrophils % 1 % (0-2) 05/25/18 04:30 Lymphocytes % (Manual) 8 % (20-50) L 05/25/18 04:30 Monocytes % (Manual) 5 % (0-10) 05/25/18 04:30 Basophils % (Manual) 1 % (0-2) 05/25/18 04:30 Platelet Estimate Normal (NORMAL) 05/25/18 04:30 Hypochromasia (manual) Slight 05/25/18 04:30 Anisocytosis (manual) Slight 05/25/18 04:30 Tear Drop Cells Slight 05/25/18 04:30 Ovalocytes Slight 05/25/18 04:30 Schistocytes Slight 05/25/18 04:30 PT 12.6 Seconds (9.8-13.1) 05/24/18 15:30 INR 1.1 (0.9-1.2) 05/24/18 15:30 APTT 31.4 Seconds (25.6-37.1) 05/24/18 15:30 Sodium 134 mmol/l (132-148) 05/31/18 06:20 Potassium 4.8 MMOL/L (3.6-5.0) 05/31/18 06:20 Chloride 93 mmol/L (98-107) L 05/31/18 06:20 Carbon Dioxide 25 mmol/L (22-30) 05/31/18 06:20 Anion Gap 21 (10-20) H 05/31/18 06:20 BUN 39 mg/dl (9-20) H 05/31/18 06:20 Creatinine 6.6 mg/dl (0.8-1.5) H 05/31/18 06:20 Est GFR ( Amer) 10 05/31/18 06:20 Est GFR (Non-Af Amer) 9 05/31/18 06:20 POC Glucose (mg/dL) 139 mg/dL (65-110) H 06/01/18 11:00 Random Glucose 104 mg/dL (75-110) 05/31/18 06:20 Hemoglobin A1c 8.8 % (4.2-6.5) H 05/23/18 20:41 Calcium 9.0 mg/dL (8.4-10.2) 05/31/18 06:20 Phosphorus 5.3 mg/dl (2.5-4.5) H 05/28/18 05:09 Magnesium 2.0 MG/DL (1.6-2.3) 05/28/18 05:09 Total Bilirubin 0.7 mg/dl (0.2-1.3) 05/28/18 05:09 AST 20 U/L (17-59) 05/28/18 05:09 ALT 12 U/L (21-72) L D 05/28/18 05:09 Alkaline Phosphatase 109 U/L (38-126) 05/28/18 05:09 CK-MB (Mass) 1.27 ng/mL (0.0-3.38) 05/24/18 15:30 Troponin I 0.0480 ng/mL (0.00-0.120) 05/25/18 08:33 Total Protein 6.9 G/DL (6.3-8.2) 05/28/18 05:09 Albumin 3.7 g/dL (3.5-5.0) 05/28/18 05:09 Globulin 3.2 gm/dL (2.2-3.9) 05/28/18 05:09 Albumin/Globulin Ratio 1.2 (1.0-2.1) 05/28/18 05:09 Triglycerides 169 mg/DL (0-149) H 05/23/18 20:41 Cholesterol 147 mg/dL (0-199) 05/23/18 20:41 LDL Cholesterol Direct 57 mg/dL (0-129) 05/23/18 20:41 HDL Cholesterol 30 MG/DL (30-70) 05/23/18 20:41 Free T4 1.84 ng/dL (0.78-2.19) 05/25/18 04:30 Total T3 0.636 nmol/L (1.49-2.60) L 05/25/18 04:30 TSH 3rd Generation 0.93 mIU/ML (0.46-4.68) 05/25/18 04:30 Hepatitis A IgM Ab Negative (NEGATIVE) 05/25/18 08:33 Hep Bs Antigen Negative (NEGATIVE) 05/25/18 08:33 Hep B Core IgM Ab Negative (NEGATIVE) 05/25/18 08:33 Hepatitis C Antibody Negative (NEGATIVE) 05/25/18 08:33 Blood Type A POSITIVE 05/23/18 20:42 Antibody Screen Negative 05/23/18 20:42 BBK History Checked Patient has bt 05/23/18 20:42 - Hospital Course Hospital Course: 62 y/o male with Hx of A fib, prior CVA, DM2, HTN, HLD, Dementia and ESRD on HD T// who comes in with hallucinations and mental status changes. 1. Acute Change in mental Status likely sec to Seizures and also due to Metabolic Encephalopathy , CVA ruled out - Plans for CONCHITA refused by patient and family - switched Keppra to ORAL 2. Wide Complex tachycardia likely was Atrial - sensed Ventricular Pacing -[employer] came to eval Pacemaker - Dr Tobias consulted - felt this was A sensed Ventricular pacing 3) DM type II -SSI and accuchecks - DM diet controlled 4) A fib , paroxysmal s/p Pacemaker Pt has Pacemaker -cont Metoprolol 25 mg bid 5) ESRD on HD -Renal consult - Dr Trujillo - HD: 6. Hx of CVA cont ASA, no statin LDL 57 7. HTN low dose Metoprolol Nephro added Hydralazine 8. Fever sec to Right Basal Pneumonia ( POA) switch to ORAL augmentin upon discharge today Discharge Exam - Head Exam Head Exam: ATRAUMATIC - Eye Exam Pupil Exam: NORMAL ACCOMODATION - Respiratory Exam Respiratory Exam: Clear to PA & Lateral, NORMAL BREATHING PATTERN. absent: Rhonchi, Wheezes, Respiratory Distress - Cardiovascular Exam Cardiovascular Exam: REGULAR RHYTHM, +S1, +S2 - GI/Abdominal Exam GI & Abdominal Exam: Normal Bowel Sounds, Soft. absent: Rebound, Tenderness - Neurological Exam Neurological exam: Alert Discharge Plan - Discharge Medications Prescriptions: RX: amLODIPine [Norvasc] 10 mg PO DAILY #30 tab Amoxicillin/Clavulanate [Augmentin 500 MG-125 MG] 1 tab PO DAILY #3 tab Levetiracetam [Keppra] 500 mg PO BID #60 tablet RX: Metoprolol Succinate XL [Toprol XL] 25 mg PO Q12 #60 tab - Follow Up Plan Condition: SERIOUS Disposition: HOME/ ROUTINE Instructions: Altered Mental Status (DC), End Stage Kidney Disease (DC) Additional Instructions: follow up with primary MD 1 week [facility] [phone] Referrals: Cheo Castellon DO [Family Provider] - Aaron Trujillo MD [Staff Provider] - Uziel Marie MD [Medical Doctor] - Roberto Parada MD [Medical Doctor] -
--- NOTE | 2018-06-01 13:58 | PQF ---
PROVIDER RESPONSE TEXT: Patient has Bacterial pneumonia unable to determine organism. REVIEWER QUERY TEXT: Pneumonia Specificity Pneumonia is documented in the Medical Record. Please specify the type of pneumonia and the causative organism (includes probable or suspected) if known. Such as: Type: -- Aspiration pneumonia (please also specify the aspirate) -- Bacterial (please document suspected or probable organism if known) -- Bronchopneumonia (please document suspected or probable organism) -- Interstitial pneumonia -- Organizing pneumonia / BOOP -- Pneumonia with influenza, alina flu, or H1N1 flu -- RSV -- Tuberculosis, pulmonary -- Viral -- Other, please specify The patient's Clinical Indicators include: Admitted with hallucinations and episode of unresponsiveness. WBC 6.3. CXR #1) Low inspiratory volum e. Linear atelectasis right base. CXR #2) Interval airspace disease right base and potential elevatio n right hemidiaphragm. Stable cardiomegaly. 05/25 ID: Might consider a CT scan of the chest and abdomen, rule out any infectious process as there is limited findings in regards to infection.At the present time, there is no specific infection noted . Possibility of aspiration is noted and would just treat with vancomycin post dialysis, and I have added Zosyn and ad justed renal dose. Query created by: Whitley Akhtar on 06/01/2018 10:14 AM Electronically signed by: Guerrero Parker MD 06/01/2018 1:56 PM
[2018-06-01 16:54] VITALS: RESP 20; O2SAT 98
[2018-06-01] MEDS: Epoetin Alfa 4000 UNIT/ML Inj IV SCH (17:08)
[2018-06-01 21:11] VITALS: BP 138/68; PULSE 59; TEMP 98.1
== END 2018-06-01 21:00 | disposition home health service (06) | DRG 100 ==
LOC: H.ER 20:10 → H.ERHOLD 21:59 → H.TEL 05-24 00:33 → H.ICU/CCU 05-24 23:19 → H.MEDSURG1 05-29 16:36
PROVIDERS: ADMIT Internal Medicine; ATTEND Internal Medicine
PROC: 5A1D70Z Performance of Urinary Filtration, Intermittent, Less than 6 Hours Per Day (ICD-10-PCS; principal; 2018-05-25)
PROC: 5A1D70Z Performance of Urinary Filtration, Intermittent, Less than 6 Hours Per Day (ICD-10-PCS; 2018-05-25)
PROC: 5A1D70Z Performance of Urinary Filtration, Intermittent, Less than 6 Hours Per Day (ICD-10-PCS; 2018-05-25)
PROC: 5A1D70Z Performance of Urinary Filtration, Intermittent, Less than 6 Hours Per Day (ICD-10-PCS; 2018-05-25)
DX: G40.89 Other seizures (principal); N18.6 End stage renal disease; J15.9 Unspecified bacterial pneumonia; G92 Toxic encephalopathy; I67.82 Cerebral ischemia; I13.11 Hypertensive heart and chronic kidney disease without heart failure, with stage 5 chronic kidney disease, or end stage renal disease; I47.2 Ventricular tachycardia; E87.0 Hyperosmolality and hypernatremia; N25.81 Secondary hyperparathyroidism of renal origin; R44.0 Auditory hallucinations; I48.0 Paroxysmal atrial fibrillation; F03.90 Unspecified dementia, unspecified severity, without behavioral disturbance, psychotic disturbance, mood disturbance, and anxiety; T50.995A Adverse effect of other drugs, medicaments and biological substances, initial encounter; E87.5 Hyperkalemia; I69.320 Aphasia following cerebral infarction; R44.1 Visual hallucinations; D63.8 Anemia in other chronic diseases classified elsewhere; E11.22 Type 2 diabetes mellitus with diabetic chronic kidney disease; Z99.2 Dependence on renal dialysis; Z95.810 Presence of automatic (implantable) cardiac defibrillator; E78.5 Hyperlipidemia, unspecified; E78.00 Pure hypercholesterolemia, unspecified; E83.39 Other disorders of phosphorus metabolism; K59.00 Constipation, unspecified; R29.715 NIHSS score 15; Z74.01 Bed confinement status; Z79.02 Long term (current) use of antithrombotics/antiplatelets; Z79.82 Long term (current) use of aspirin; Y92.89 Other specified places as the place of occurrence of the external cause